=== PATIENT | male | born 1940 | race Caucasian/White ===

== ENCOUNTER 2017-09-21 15:14 | Observation (INO) | payer OTHER, SELFPAY ==
--- NOTE | 2017-09-21 | DI.CT.S_ITS ---
PROCEDURE: CT HEAD/BRAIN WO CON INDICATIONS: STROKE TECHNIQUE: Noncontrast 4.5 mm thick angled axial sections acquired from the foramen magnum to the vertex, with coronal and sagittal reformats. For radiation dose reduction, the following was used: automated exposure control, adjustment of mA and/or kV according to patient size. COMPARISON: [facility], CT, HEAD WITHOUT CONTRAST, 02/18/2017, 19:52. FINDINGS: Image quality: Excellent. CSF spaces: Basal cisterns are patent. No extra-axial fluid collections. The ventricles are symmetric in size and shape. Brain: No intracranial bleeds or masses. There is cerebral volume loss for age, with resultant ventricular and sulcal prominence. There are periventricular and deep white matter chronic small vessel ischemic changes. There is intracranial internal carotid artery atherosclerosis. Skull and face: Calvarium and visualized facial bones appear intact, without suspicious lesions. Sinuses: Visualized sinuses and mastoids are clear. IMPRESSION: No acute intracranial abnormality. Dictated by: Emily Walden M.D. on 09/21/2017 at 15:27 Approved by: Emily Walden M.D. on 09/21/2017 at 15:28
[2017-09-21 15:18] VITALS: BMI 31.6
[2017-09-21 15:22] VITALS: BP 193/99; PULSE 77; RESP 22; O2SAT 98; BMI 31.6
[2017-09-21 15:33] LABS: Hematocrit 41.5 % (41-53); Hemoglobin 14.2 g/dL (13.5-17.5); Mean Corpuscular HGB Conc 34.3 % (30-36); Mean Corpuscular Hemoglobin 30.2 PG (26-34); Mean Corpuscular Volume 88.1 fL (80-100); Platelet Count 148 X10^3/uL (150-400); Red Cell Distribution Width 14.1 % (11.6-14.8); White Blood Cell Count 8.5 X10^3/uL (4.5-11.0)
--- NOTE | 2017-09-21 15:37 | DI.CT.S_ITS ---
PROCEDURE: CT ANGIO HEAD AND NECK INDICATIONS: CVA, r/o large vessel occlusion TECHNIQUE: Pre-contrast 4.5 mm thick sections acquired from the foramen magnum to the vertex. After the administration of intravenous contrast, 1 mm thick sections acquired from the aortic arch through the [place]. Post-contrast 4.5 mm thick sections then re-acquired from the foramen magnum to the vertex. 3-dimensional rzjbvzd-sznugempt-dmtkdsueqm (MIP) and/or volume rendering reformats were acquired of the central intracranial vasculature and neck separately. COMPARISON: [facility], CT, HEAD AND NECK ANGIO, 08/22/2016, 20:55. [facility], CT, CT HEAD/BRAIN WO CON, 09/21/2017, 15:08. [facility], CT, HEAD AND NECK ANGIO, 12/04/2016, 15:13. FINDINGS: Image quality: Excellent. BRAIN: CSF spaces: Ventricles are normal in size and shape. Basal cisterns are patent. No extra-axial fluid collections. Brain: No midline shift. No intracranial bleeds or masses. Hackett-white matter interface appears intact. Skull and face: Calvarium and facial bones appear intact, without suspicious lesions. Orbits appear normal. Sinuses: Sinuses and mastoids are clear. HEAD CT ANGIOGRAPHY: Anterior circulation: Mild plaque and mild stenosis involves the bilateral internal carotid arteries cavernous segment and supraclinoid segments. The flow within the paired anterior cerebral arteries is normal and symmetric. The flow within the middle cerebral arteries is normal and symmetric. The anterior communicating artery is seen. No aneurysms are seen. Posterior circulation: Visualized portions of the vertebral arteries demonstrate normal caliber, and join to form a normal appearing basilar artery. Near origin of the left posterior cerebral artery. Flow within the posterior cerebral arteries is normal and symmetric. No aneurysms are seen. NECK CT ANGIOGRAPHY: Carotid system: The great vessels demonstrate a conventional anatomy as they arise from the aortic arch. The origins of the common carotid arteries appear patent. The common carotid arteries demonstrate normal caliber and courses. Mild calcific stenosis involves the bilateral internal carotid artery origins, and internal carotid artery is otherwise patent. Posterior circulation: Proximal right vertebral artery and its origin are not well seen. Left vertebral artery origin is patent. The more superior extracranial portions of both vertebral arteries also demonstrate normal courses and calibers. They join to form a normal appearing basilar artery. Soft tissues: Visualized neck soft tissues demonstrate no suspicious abnormalities. Bones: No suspicious bony lesions. Visualized cervical spine appears normally aligned. IMPRESSION: 1. No acute process. 2. Suboptimally visualized proximal right vertebral artery. Left vertebral artery is patent. 3. Mild bilateral internal carotid artery stenosis as described above. Any quantitative measurements of stenosis were performed using NASCET criteria. Dictated by: Emily Walden M.D. on 09/21/2017 at 16:55 Approved by: Emily Walden M.D. on 09/21/2017 at 17:00
[2017-09-21 15:38] LABS: INR 1.4 (0.9-1.3); Prothrombin Time 15.3 SECONDS (10.1-12.7)
[2017-09-21 15:40] LABS: PTT Partial Thromboplastin Tim 34 SECONDS (26.4-36.2)
--- NOTE | 2017-09-21 15:42 | ED.NEUROSD ---
HPI - Neuro Symptoms/Deficit General Chief Complaint: Neuro Symptoms/Deficit Stated Complaint: Code Stroke Time Seen by Provider: 09/21/17 15:18 Source: patient, family and EMS Mode of arrival: EMS Limitations: other History of Present Illness HPI Narrative: 77-year-old male with a history of diabetes, TIA with expressive aphasia, hypertension, and hyperlipidemia presents with word salad that began around 215 this afternoon. He had a stroke/TIA about 6 months ago where he was seen here. His roommate was present notes that his symptoms from that nearly resolved except for some memory loss. Today his symptoms are similar to previous. Unable to obtain review of systems due to his expressive aphasia. NIH score of 5. Onset (ago): hour(s) (1) On Anticoagulants: Yes (warfarin) Related Data Home Medications Medication Instructions Recorded Confirmed felodipine 10 mg PO QDAY #0 08/22/16 losartan 100 mg PO QDAY #0 08/22/16 metformin [Glucophage XR] 1,000 mg PO BID #0 08/22/16 naproxen [Naprosyn] 500 mg PO BID PRN #0 08/22/16 tamsulosin [Flomax] 0.4 mg PO QDAY #0 08/22/16 glipizide 10 mg PO BID #180 02/18/17 metoprolol succinate 50 mg PO QDAY #60 02/18/17 Previous Rx's Medication Instructions Recorded aspirin 81 mg PO QDAY #60 tab 08/23/16 atorvastatin [Lipitor] 20 mg PO HS #30 tab 08/23/16 Allergies Allergy/AdvReac Type Severity Reaction Status Date / Time codeine Allergy Unknown Unverified 08/14/17 12:52 ibuprofen [From MOTRIN] Allergy Unknown makes me Unverified 08/14/17 12:52 sick Sulfa (Sulfonamide Allergy Unknown Unverified 08/14/17 12:52 Antibiotics) Review of Systems Review of Systems unobtainable due to mental status [facility] Medical History History of prostatitis (Acute) Hypertension (Acute) Nephrolithiasis (Acute) Type 2 diabetes mellitus without complications (Acute) Surgical History H/O hernia repair (Acute) Social History Smoking Status: Never smoker alcohol intake: never Exam Initial Vital Signs Initial Vital Signs: Vital Signs Pulse Rate 77 09/21/17 15:22 Respiratory Rate 22 09/21/17 15:22 Blood Pressure 193/99 H 09/21/17 15:22 Pulse Oximetry 98 09/21/17 15:22 Const General: cooperative and well developed Nutritional Appearance: well nourished Orientation: alert, awake and not confused Other: Speaks briefly with intelligible words and then becomes unintelligible/word salad. HENMT Head: normocephalic and atraumatic Ears: external ears normal and TM's normal bilaterally Nose: external nose normal and No nasal discharge Face and sinus: sinuses nontender, face symmetric, no sinus tenderness and No dry mucous membranes Mouth: oral mucosae normal and moist mucous membranes Teeth and gingiva: dentition normal Throat: tonsils normal and uvula midline Eyes General: appearance normal, both eyes and all related structures Eyelids: eyelids normal Conjunctivae: conjunctivae normal Sclera: sclerae normal Pupils: PERRL EOM: EOM intact bilaterally Neck Neck: normal visual inspection, trachea midline, No lymphadenopathy, No midline deformity and No JVD Lymphatic: No lymphedema Chest Chest: normal inspection of the chest Resp Effort & Inspection: normal respiratory effort, able to speak in complete sentences, no respiratory distress and no use of accessory muscles Auscultation: clear to auscultation bilaterally, no rales, no rhonchi and no wheezes Cardio Rate: regular rate Rhythm: regular rhythm Heart Sounds: no click, no gallops, no murmurs and no rubs Pulses: normal peripheral pulses GI Inspection: non-distended Palpation: soft, no hepatosplenomegaly, No guarding, No pulsatile mass and No tender Auscultation: normal bowel sounds Back/Spine/Pelvis Back: No CVA tenderness Cervical Spine: cervical ROM normal and No pain with cervical ROM Thoracic/Lumbar Spine: thoracic and lumbar spine normal to inspection Skin General: no rashes or lesions noted, No jaundice and No petechiae Neuro General: alert, oriented x3, gait normal and no focal motor deficits Cranial Nerves: CN's II-XI intact bilaterally Speech: speech normal Motor: strength 5/5 throughout Sensory Exam: no sensory deficits noted Extrem General: full ROM, no clubbing, cyanosis or edema, no pedal edema and no calf tenderness Psych Appearance: well kempt Mental Status: mental status grossly normal Attitude: cooperative Thought Content: normal and suicidality Judgment: judgment good Course Orders Ordered: ED Orders 09/21/17 15:18 Urinalysis and Microscopic Stat 09/21/17 15:19 EKG-12 Lead Stat 09/21/17 15:23 Complete Blood Count MAN DIFF Stat Comprehensive Metabolic Panel Stat Ethanol (ETOH) Stat Partial Thromboplastin Time Stat Prothrombin Time INR Stat Troponin I Stat 09/21/17 15:37 CT angio head and neck Stat Sodium Chloride (Normal Saline 0.9%) 1,000 mls @ 150 mls/hr IV CONT DHARMESH Last Admin: 09/21/17 17:53 Dose: 150 mls/hr Discontinued Medications Aspirin (Aspirin Ec) 325 mg PO NOW ONE Stop: 09/21/17 17:38 Last Admin: 09/21/17 17:55 Dose: 325 mg Enoxaparin Sodium (Lovenox) 105 mg 1 mg/kg (105 mg) SUBCUT NOW ONE Stop: 09/21/17 17:38 Last Admin: 09/21/17 17:52 Dose: 105 mg Vital Signs - 8 hr 09/21/17 15:22 09/21/17 18:37 Pulse Rate 77 78 Respiratory Rate 22 16 Blood Pressure 193/99 H 198/95 H Pulse Oximetry 98 97 MDM - Neuro Symptoms/Deficit Medical Records Attestation: I reviewed the patient's medical records. Lab Data Attestation: I reviewed the patient's lab results. Result diagrams: 09/21/17 15:23 09/21/17 15:23 Lab Results 09/21/17 09/21/17 09/21/17 Range/Units 15:23 15:23 15:23 WBC 8.5 (4.5-11.0) X10^3/uL RBC 4.70 (4.5-5.9) X10^6/uL Hgb 14.2 (13.5-17.5) g/dL Hct 41.5 (41-53) % MCV 88.1 (80-100) fL MCH 30.2 (26-34) PG MCHC 34.3 (30-36) % RDW 14.1 (11.6-14.8) % Plt Count 148 L (150-400) X10^3/uL Seg Neutrophils % 51.0 (38-70) % Band Neutrophils % 1.0 L (3-7) % Lymphocytes % (Manual) 40.0 (25-45) % Monocytes % (Manual) 8.0 (2-11) % Eosinophils % (Manual) 0.0 L (2-4) % Basophils % (Manual) 0.0 (0-1) % RBC Morphology Normal morphology PT 15.3 H (10.1-12.7) SECONDS INR 1.4 H (0.9-1.3) APTT 34 (26.4-36.2) SECONDS Sodium 137 (137-145) mmol/L Potassium 4.0 (3.4-5.1) mmol/L Chloride 100.0 (98-107) mmol/L Carbon Dioxide 25.0 (22-32) mmol/L BUN 15.0 (9-20) mg/dL Creatinine 0.70 (0.66-1.25) mg/dL Estimated GFR > 60.0 (>60) mL/min BUN/Creatinine Ratio 21.4 (6-22) Glucose 284 H (80-110) mg/dL Calcium 9.9 (8.4-10.2) mg/dL Total Bilirubin 0.5 (0.2-1.3) mg/dL AST 21 (17-59) IU/L ALT 29 (21-72) IU/L Alkaline Phosphatase 119 (38-126) U/L Troponin I < 0.012 (0.01-0.034) ng/mL Total Protein 6.8 (6.3-8.2) g/dL Albumin 3.7 (3.5-5.0) g/dL Globulin 3.1 (1.7-4.1) g/dL Albumin/Globulin Ratio 1.2 (1.0-2.8) Ethyl Alcohol < 10 mg/dL Imaging Data CT scan - head: Radiologist's impression: PROCEDURE: CT HEAD/BRAIN WO CON INDICATIONS: STROKE PROCEDURE: CT ANGIO HEAD AND NECK INDICATIONS: CVA, r/o large vessel occlusion TECHNIQUE: Pre-contrast 4.5 mm thick sections acquired from the foramen magnum to the vertex. After the administration of intravenous contrast, 1 mm thick sections acquired from the aortic arch through the [place] of [place]. Post-contrast 4.5 mm thick sections then re-acquired from the foramen magnum to the vertex. 3-dimensional nvplweg-dqwvstxkg-aahmguigal (MIP) and/or volume rendering reformats were acquired of the central intracranial vasculature and neck separately. COMPARISON: [facility], CT, HEAD AND NECK ANGIO, 08/22/2016, 20:55. [facility], CT, CT HEAD/BRAIN WO CON, 09/21/2017, 15:08. [facility], CT, HEAD AND NECK ANGIO, 12/04/2016, 15:13. FINDINGS: Image quality: Excellent. BRAIN: CSF spaces: Ventricles are normal in size and shape. Basal cisterns are patent. No extra-axial fluid collections. Brain: No midline shift. No intracranial bleeds or masses. Hack[place]-white matter interface appears intact. Skull and face: Calvarium and facial bones appear intact, without suspicious lesions. Orbits appear normal. Sinuses: Sinuses and mastoids are clear. HEAD CT ANGIOGRAPHY: Anterior circulation: Mild plaque and mild stenosis involves the bilateral internal carotid arteries cavernous segment and supraclinoid segments. The flow within the paired anterior cerebral arteries is normal and symmetric. The flow within the middle cerebral arteries is normal and symmetric. The anterior communicating artery is seen. No aneurysms are seen. Posterior circulation: Visualized portions of the vertebral arteries demonstrate normal caliber, and join to form a normal appearing basilar artery. Near origin of the left posterior cerebral artery. Flow within the posterior cerebral arteries is normal and symmetric. No aneurysms are seen. NECK CT ANGIOGRAPHY: Carotid system: The great vessels demonstrate a conventional anatomy as they arise from the aortic arch. The origins of the common carotid arteries appear patent. The common carotid arteries demonstrate normal caliber and courses. Mild calcific stenosis involves the bilateral internal carotid artery origins, and internal carotid artery is otherwise patent. Posterior circulation: Proximal right vertebral artery and its origin are not well seen. Left vertebral artery origin is patent. The more superior extracranial portions of both vertebral arteries also demonstrate normal courses and calibers. They join to form a normal appearing basilar artery. Soft tissues: Visualized neck soft tissues demonstrate no suspicious abnormalities. Bones: No suspicious bony lesions. Visualized cervical spine appears normally aligned. IMPRESSION: 1. No acute process. 2. Suboptimally visualized proximal right vertebral artery. Left vertebral artery is patent. 3. Mild bilateral internal carotid artery stenosis as described above. Any quantitative measurements of stenosis were performed using NASCET criteria. Dictated by: Emily Walden M.D. on 09/21/2017 at 16:55 Approved by: Emily Walden M.D. on 09/21/2017 at 17:00 TECHNIQUE: Noncontrast 4.5 mm thick angled axial sections acquired from the foramen magnum to the vertex, with coronal and sagittal reformats. For radiation dose reduction, the following was used: automated exposure control, adjustment of mA and/or kV according to patient size. COMPARISON: [facility], CT, HEAD WITHOUT CONTRAST, 02/18/2017, 19:52. FINDINGS: Image quality: Excellent. CSF spaces: Basal cisterns are patent. No extra-axial fluid collections. The ventricles are symmetric in size and shape. Brain: No intracranial bleeds or masses. There is cerebral volume loss for age, with resultant ventricular and sulcal prominence. There are periventricular and deep white matter chronic small vessel ischemic changes. There is intracranial internal carotid artery atherosclerosis. Skull and face: Calvarium and visualized facial bones appear intact, without suspicious lesions. Sinuses: Visualized sinuses and mastoids are clear. IMPRESSION: No acute intracranial abnormality. Dictated by: Emily Walden M.D. on 09/21/2017 at 15:27 Approved by: Emily Walden M.D. on 09/21/2017 at 15:28 ECG Data Attestation: I personally reviewed and interpreted this ECG as follows: Prior ECG tracings: available for review Interpretation: EKG performed at 1532 shows sinus rhythm with a normal EKG. No evidence of ischemia or arrhythmia. No change when compared with 02/18/2017 [facility] Narrative Medical decision making narrative: Full NIH was performed by myself and he lost a point for not knowing the year, having severe difficulty with language, and severe dysarthria. He could not read any of the phrases on cards, but was able to identify what was happening in the picture and also he was able to identify the pictures NIH scale demonstrate no problems with a pneumonia. He spoke in nonsensical, non word phrases predominantly. Still unable to identify why he is on warfarin. He was initiated in February per his pharmacy. [address] Killian in Neurology at [facility] stroke. Even though he is on warfarin, as his INR is subtherapeutic, he is a tPA candidate. 1555: NIH is now 0 [address] hensly confirms resolution of symptoms. Will hold TPA and perform CTA head and neck, admit for MRI and stroke workup Overall the differential for his symptoms include TIA, atypical migraine, hypertensive emergency, seizure, versus other. At this point given the for possible TIA and his significantly elevated blood pressure here, he will need to be admitted for further evaluation. He was somewhat reluctant to be admitted given all the things he had to do, but I let him know that he is at highest risk for stroke in the next 24-48 hours. He is agreeable to stay. I discussed his care with Dr. Miller who recommends giving him Lovenox giving his subtherapeutic INR as well as a full aspirin. He will come see and admit the patient. Discharge Plan Departure Patient Disposition: Admitted As Inpatient Clinical Impression: TIA (transient ischemic attack), Hypertensive crisis, Subtherapeutic international normalized ratio (INR) Interventions: ED Discharge Assessment Last Done: 09/21/17 18:37 Admit Date/Time: 09/21/17 17:58 Admit Provider: Gage Miller V
[2017-09-21 15:43] LABS: Alanine Aminotransferase 29 IU/L (21-72); Albumin 3.7 g/dL (3.5-5.0); Albumin Globulin Ratio 1.2 (1.0-2.8); Alkaline Phosphatase 119 U/L (38-126); Aspartate Aminotransferase 21 IU/L (17-59); BUN Creatinine Ratio 21.4 (6-22); Bilirubin Total 0.5 mg/dL (0.2-1.3); Calcium 9.9 mg/dL (8.4-10.2); Estimated Glomerular Filt Rate > 60.0 mL/min (>60); Ethanol (ETOH) < 10 mg/dL; Globulin 3.1 g/dL (1.7-4.1); Glucose 284 mg/dL (80-110); HEMOLYSIS < 15 (0-50); Sodium 137 mmol/L (137-145); Total Protein 6.8 g/dL (6.3-8.2)
[2017-09-21 16:05] LABS: Troponin I < 0.012 ng/mL (0.01-0.034)
--- NOTE | 2017-09-21 16:05 | ED_ITS ---
HPI - Neuro Symptoms/Deficit General Chief Complaint: Neuro Symptoms/Deficit Stated Complaint: Code Stroke Time Seen by Provider: 09/21/17 15:18 Source: patient, family and EMS Mode of arrival: EMS Limitations: other History of Present Illness HPI Narrative: 77-year-old male with a history of diabetes, TIA with expressive aphasia, hypertension, and hyperlipidemia presents with word salad that began around 215 this afternoon. He had a stroke/TIA about 6 months ago where he was seen here. His roommate was present notes that his symptoms from that nearly resolved except for some memory loss. Today his symptoms are similar to previous. Unable to obtain review of systems due to his expressive aphasia. NIH score of 5. Onset (ago): hour(s) (1) On Anticoagulants: Yes (warfarin) Related Data Home Medications Medication Instructions Recorded Confirmed felodipine 10 mg PO QDAY #0 08/22/16 losartan 100 mg PO QDAY #0 08/22/16 metformin [Glucophage XR] 1,000 mg PO BID #0 08/22/16 naproxen [Naprosyn] 500 mg PO BID PRN #0 08/22/16 tamsulosin [Flomax] 0.4 mg PO QDAY #0 08/22/16 glipizide 10 mg PO BID #180 02/18/17 metoprolol succinate 50 mg PO QDAY #60 02/18/17 Previous Rx's Medication Instructions Recorded aspirin 81 mg PO QDAY #60 tab 08/23/16 atorvastatin [Lipitor] 20 mg PO HS #30 tab 08/23/16 Allergies Allergy/AdvReac Type Severity Reaction Status Date / Time codeine Allergy Unknown Unverified 08/14/17 12:52 ibuprofen [From MOTRIN] Allergy Unknown makes me Unverified 08/14/17 12:52 sick Sulfa (Sulfonamide Allergy Unknown Unverified 08/14/17 12:52 Antibiotics) Review of Systems Review of Systems unobtainable due to mental status [facility] Medical History History of prostatitis (Acute) Hypertension (Acute) Nephrolithiasis (Acute) Type 2 diabetes mellitus without complications (Acute) Surgical History H/O hernia repair (Acute) Social History Smoking Status: Never smoker alcohol intake: never Exam Initial Vital Signs Initial Vital Signs: Vital Signs Pulse Rate 77 09/21/17 15:22 Respiratory Rate 22 09/21/17 15:22 Blood Pressure 193/99 H 09/21/17 15:22 Pulse Oximetry 98 09/21/17 15:22 Const General: cooperative and well developed Nutritional Appearance: well nourished Orientation: alert, awake and not confused Other: Speaks briefly with intelligible words and then becomes unintelligible/ word salad. HENMT Head: normocephalic and atraumatic Ears: external ears normal and TM's normal bilaterally Nose: external nose normal and No nasal discharge Face and sinus: sinuses nontender, face symmetric, no sinus tenderness and No dry mucous membranes Mouth: oral mucosae normal and moist mucous membranes Teeth and gingiva: dentition normal Throat: tonsils normal and uvula midline Eyes General: appearance normal, both eyes and all related structures Eyelids: eyelids normal Conjunctivae: conjunctivae normal Sclera: sclerae normal Pupils: PERRL EOM: EOM intact bilaterally Neck Neck: normal visual inspection, trachea midline, No lymphadenopathy, No midline deformity and No JVD Lymphatic: No lymphedema Chest Chest: normal inspection of the chest Resp Effort & Inspection: normal respiratory effort, able to speak in complete sentences, no respiratory distress and no use of accessory muscles Auscultation: clear to auscultation bilaterally, no rales, no rhonchi and no wheezes Cardio Rate: regular rate Rhythm: regular rhythm Heart Sounds: no click, no gallops, no murmurs and no rubs Pulses: normal peripheral pulses GI Inspection: non-distended Palpation: soft, no hepatosplenomegaly, No guarding, No pulsatile mass and No tender Auscultation: normal bowel sounds Back/Spine/Pelvis Back: No CVA tenderness Cervical Spine: cervical ROM normal and No pain with cervical ROM Thoracic/Lumbar Spine: thoracic and lumbar spine normal to inspection Skin General: no rashes or lesions noted, No jaundice and No petechiae Neuro General: alert, oriented x3, gait normal and no focal motor deficits Cranial Nerves: CN's II-XI intact bilaterally Speech: speech normal Motor: strength 5/5 throughout Sensory Exam: no sensory deficits noted Extrem General: full ROM, no clubbing, cyanosis or edema, no pedal edema and no calf tenderness Psych Appearance: well kempt Mental Status: mental status grossly normal Attitude: cooperative Thought Content: normal and suicidality Judgment: judgment good Course Orders Ordered: ED Orders 09/21/17 15:18 Urinalysis and Microscopic Stat 09/21/17 15:19 EKG-12 Lead Stat 09/21/17 15:23 Complete Blood Count MAN DIFF Stat Comprehensive Metabolic Panel Stat Ethanol (ETOH) Stat Partial Thromboplastin Time Stat Prothrombin Time INR Stat Troponin I Stat 09/21/17 15:37 CT angio head and neck Stat Sodium Chloride (Normal Saline 0.9%) 1,000 mls @ 150 mls/hr IV CONT DHARMESH Last Admin: 09/21/17 17:53 Dose: 150 mls/hr Discontinued Medications Aspirin (Aspirin Ec) 325 mg PO NOW ONE Stop: 09/21/17 17:38 Last Admin: 09/21/17 17:55 Dose: 325 mg Enoxaparin Sodium (Lovenox) 105 mg 1 mg/kg (105 mg) SUBCUT NOW ONE Stop: 09/21/17 17:38 Last Admin: 09/21/17 17:52 Dose: 105 mg Vital Signs - 8 hr 09/21/17 15:22 09/21/17 18:37 Pulse Rate 77 78 Respiratory Rate 22 16 Blood Pressure 193/99 H 198/95 H Pulse Oximetry 98 97 MDM - Neuro Symptoms/Deficit Medical Records Attestation: I reviewed the patient's medical records. Lab Data Attestation: I reviewed the patient's lab results. Result diagrams: 09/21/17 15:23 09/21/17 15:23 Lab Results 09/21/17 09/21/17 09/21/17 Range/Units 15:23 15:23 15:23 WBC 8.5 (4.5-11.0) X10^3/uL RBC 4.70 (4.5-5.9) X10^6/uL Hgb 14.2 (13.5-17.5) g/dL Hct 41.5 (41-53) % MCV 88.1 (80-100) fL MCH 30.2 (26-34) PG MCHC 34.3 (30-36) % RDW 14.1 (11.6-14.8) % Plt Count 148 L (150-400) X10^3/uL Seg Neutrophils % 51.0 (38-70) % Band Neutrophils % 1.0 L (3-7) % Lymphocytes % (Manual) 40.0 (25-45) % Monocytes % (Manual) 8.0 (2-11) % Eosinophils % (Manual) 0.0 L (2-4) % Basophils % (Manual) 0.0 (0-1) % RBC Morphology Normal morphology PT 15.3 H (10.1-12.7) SECONDS INR 1.4 H (0.9-1.3) APTT 34 (26.4-36.2) SECONDS Sodium 137 (137-145) mmol/L Potassium 4.0 (3.4-5.1) mmol/L Chloride 100.0 (98-107) mmol/L Carbon Dioxide 25.0 (22-32) mmol/L BUN 15.0 (9-20) mg/dL Creatinine 0.70 (0.66-1.25) mg/dL Estimated GFR > 60.0 (>60) mL/min BUN/Creatinine Ratio 21.4 (6-22) Glucose 284 H (80-110) mg/dL Calcium 9.9 (8.4-10.2) mg/dL Total Bilirubin 0.5 (0.2-1.3) mg/dL AST 21 (17-59) IU/L ALT 29 (21-72) IU/L Alkaline Phosphatase 119 (38-126) U/L Troponin I < 0.012 (0.01-0.034) ng/mL Total Protein 6.8 (6.3-8.2) g/dL Albumin 3.7 (3.5-5.0) g/dL Globulin 3.1 (1.7-4.1) g/dL Albumin/Globulin Ratio 1.2 (1.0-2.8) Ethyl Alcohol < 10 mg/dL Imaging Data CT scan - head: Radiologist's impression: PROCEDURE: CT HEAD/BRAIN WO CON INDICATIONS: STROKE PROCEDURE: CT ANGIO HEAD AND NECK INDICATIONS: CVA, r/o large vessel occlusion TECHNIQUE: Pre-contrast 4.5 mm thick sections acquired from the foramen magnum to the vertex. After the administration of intravenous contrast, 1 mm thick sections acquired from the aortic arch through the [place]. Post-contrast 4.5 mm thick sections then re- acquired from the foramen magnum to the vertex. 3-dimensional maximum-intensity- projection (MIP) and/or volume rendering reformats were acquired of the central intracranial vasculature and neck separately. COMPARISON: [facility], CT, HEAD AND NECK ANGIO, 08/22/2016, 20:55. [facility], CT, CT HEAD/BRAIN WO CON, 09/21/2017, 15:08. [facility], CT, HEAD AND NECK ANGIO, 12/04/2016, 15:13. FINDINGS: Image quality: Excellent. BRAIN: CSF spaces: Ventricles are normal in size and shape. Basal cisterns are patent. No extra-axial fluid collections. Brain: No midline shift. No intracranial bleeds or masses. Hackett-white matter interface appears intact. Skull and face: Calvarium and facial bones appear intact, without suspicious lesions. Orbits appear normal. Sinuses: Sinuses and mastoids are clear. HEAD CT ANGIOGRAPHY: Anterior circulation: Mild plaque and mild stenosis involves the bilateral internal carotid arteries cavernous segment and supraclinoid segments. The flow within the paired anterior cerebral arteries is normal and symmetric. The flow within the middle cerebral arteries is normal and symmetric. The anterior communicating artery is seen. No aneurysms are seen. Posterior circulation: Visualized portions of the vertebral arteries demonstrate normal caliber, and join to form a normal appearing basilar artery. Near origin of the left posterior cerebral artery. Flow within the posterior cerebral arteries is normal and symmetric. No aneurysms are seen. NECK CT ANGIOGRAPHY: Carotid system: The great vessels demonstrate a conventional anatomy as they arise from the aortic arch. The origins of the common carotid arteries appear patent. The common carotid arteries demonstrate normal caliber and courses. Mild calcific stenosis involves the bilateral internal carotid artery origins, and internal carotid artery is otherwise patent. Posterior circulation: Proximal right vertebral artery and its origin are not well seen. Left vertebral artery origin is patent. The more superior extracranial portions of both vertebral arteries also demonstrate normal courses and calibers. They join to form a normal appearing basilar artery. Soft tissues: Visualized neck soft tissues demonstrate no suspicious abnormalities. Bones: No suspicious bony lesions. Visualized cervical spine appears normally aligned. IMPRESSION: 1. No acute process. 2. Suboptimally visualized proximal right vertebral artery. Left vertebral artery is patent. 3. Mild bilateral internal carotid artery stenosis as described above. Any quantitative measurements of stenosis were performed using NASCET criteria. Dictated by: Emily Walden M.D. on 09/21/2017 at 16:55 Approved by: Emily Walden M.D. on 09/21/2017 at 17:00 TECHNIQUE: Noncontrast 4.5 mm thick angled axial sections acquired from the foramen magnum to the vertex, with coronal and sagittal reformats. For radiation dose reduction, the following was used: automated exposure control, adjustment of mA and/or kV according to patient size. COMPARISON: [facility], CT, HEAD WITHOUT CONTRAST, 02/18/2017, 19:52. FINDINGS: Image quality: Excellent. CSF spaces: Basal cisterns are patent. No extra-axial fluid collections. The ventricles are symmetric in size and shape. Brain: No intracranial bleeds or masses. There is cerebral volume loss for age , with resultant ventricular and sulcal prominence. There are periventricular and deep white matter chronic small vessel ischemic changes. There is intracranial internal carotid artery atherosclerosis. Skull and face: Calvarium and visualized facial bones appear intact, without suspicious lesions. Sinuses: Visualized sinuses and mastoids are clear. IMPRESSION: No acute intracranial abnormality. Dictated by: Emily Walden M.D. on 09/21/2017 at 15:27 Approved by: Emily Walden M.D. on 09/21/2017 at 15:28 ECG Data Attestation: I personally reviewed and interpreted this ECG as follows: Prior ECG tracings: available for review Interpretation: EKG performed at 1532 shows sinus rhythm with a normal EKG. No evidence of ischemia or arrhythmia. No change when compared with 02/18/2017 [facility] Narrative Medical decision making narrative: Full NIH was performed by myself and he lost a point for not knowing the year, having severe difficulty with language, and severe dysarthria. He could not read any of the phrases on cards, but was able to identify what was happening in the picture and also he was able to identify the pictures NIH scale demonstrate no problems with a pneumonia. He spoke in nonsensical, non word phrases predominantly. Still unable to identify why he is on warfarin. He was initiated in February per his pharmacy. [address] Killian in Neurology at [facility] stroke. Even though he is on warfarin, as his INR is subtherapeutic, he is a tPA candidate. 1555: NIH is now 0 [address] hensly confirms resolution of symptoms. Will hold TPA and perform CTA head and neck, admit for MRI and stroke workup Overall the differential for his symptoms include TIA, atypical migraine, hypertensive emergency, seizure, versus other. At this point given the for possible TIA and his significantly elevated blood pressure here, he will need to be admitted for further evaluation. He was somewhat reluctant to be admitted given all the things he had to do, but I let him know that he is at highest risk for stroke in the next 24-48 hours. He is agreeable to stay. I discussed his care with Dr. Miller who recommends giving him Lovenox giving his subtherapeutic INR as well as a full aspirin. He will come see and admit the patient. Discharge Plan Departure Patient Disposition: Admitted As Inpatient Clinical Impression: TIA (transient ischemic attack), Hypertensive crisis, Subtherapeutic international normalized ratio (INR) Interventions: ED Discharge Assessment Last Done: 09/21/17 18:37 Admit Date/Time: 09/21/17 17:58 Admit Provider: Gage Miller V
[2017-09-21 16:12] LABS: RBC Morphology Normal Morphology
[2017-09-21] MEDS: ENOXAPARIN 100 MG/ML SYRINGE 105 MG SUBCUT (17:52)
[2017-09-21] MEDS: SODIUM CHLORIDE 0.9% 1,000 ML 150 ML IV ×2 (17:53→21:07)
[2017-09-21] MEDS: ASPIRIN EC 325 MG TABLET PO (17:55)
--- NOTE | 2017-09-21 18:11 | PC.NURSE ---
Late entry 1520: Pt's speech cleared, NIH score decreased to 0. Tele stroke had been initiated prior to speech clearing. Pt able to talk in full sentences, and able to read words.
[2017-09-21 18:37] VITALS: BP 198/95; PULSE 78; RESP 16; O2SAT 97
--- NOTE | 2017-09-21 19:21 | PM.HP.1 ---
History of Present Illness Chief complaint: Code Stroke Narrative: Haresh Pizarro is a 77 year old male with a history of TIAs who presented with expressive aphasia for approximately 90 min this afternoon. He states he was just leaving a friend's at about 3:00 p.m. when he noticed he had trouble expressing himself. He got on his motor bike and drove himself home, and as he pulled and he felt that he may have had a little trouble with coordination, but denies any lateralizing weakness, paresthesias, or ataxic symptoms, was able to get off his motor bike and get into his house. He subsequently was seen promptly in the emergency department and was about to be administered thrombolytics when his symptoms resolved completely, with his NIH stroke scale score going from 5 on presentation to 0. He had a similar presentation in August 2016 at this hospital, resolving and at which time he was started on aspirin and statin therapy. He states he has had 3 other identical episodes, all resolving within 2-1/2 hours. He is on warfarin for reasons that are unclear to him, but notes that his protime was in range last week. He does not usually measure blood sugars and does not also measure blood pressures, though states that tended to be high in the past. It is noted that he was on floated Pean 10 mg daily, losartan 100 mg daily in August 2016 when he last was seen at this hospital. Since then he has been started on warfarin. [facility]LY [facility], [facility] Medical History History of prostatitis (Acute) History of transient ischemic attack (Acute) Hypertension (Acute) Nephrolithiasis (Acute) Type 2 diabetes mellitus without complications (Acute) Surgical History H/O hernia repair (Acute) Social History Smoking Status: Former smoker alcohol intake: former additional social history: He quit smoking over 20 years ago. 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 He plans to move to [place] within a couple of days. He denies alcohol use. Meds Home Medications Medication Instructions Recorded Confirmed Type metformin [Glucophage XR] 1,000 mg PO BID #0 08/22/16 09/21/17 History glipizide 5 mg PO BID #180 02/18/17 09/21/17 History warfarin 5 mg PO DAILY 09/21/17 09/21/17 History Generic Name Dose Route Start Last Admin Trade Name Maame PRN Reason Stop Dose Admin Acetaminophen 650 mg 09/21/17 20:10 Tylenol PO Q6HR PRN As Needed for Fever/Mild Pain Aspirin 325 mg 09/22/17 09:00 Aspirin Ec PO DAILY [facility] Atorvastatin Calcium 20 mg 09/21/17 20:15 Lipitor PO HS [facility] Enoxaparin Sodium 105 mg 09/22/17 09:08 Lovenox 1 mg/kg (105 mg) 09/22/17 09:09 SUBCUT NOW ONE Felodipine 10 mg 09/21/17 20:10 Plendil PO DAILY [facility] Glipizide 5 mg 09/21/17 21:00 Glucotrol PO BID [facility] Sodium Chloride 1,000 mls @ 150 mls/hr 09/21/17 15:30 09/21/17 17:53 Normal Saline 0.9% IV 150 mls/hr CONT DHARMESH Administration Metformin HCl 1,000 mg 09/21/17 21:00 Glucophage Xr PO BID [facility] Warfarin Sodium 5 mg 09/22/17 09:00 Coumadin PO DAILY [facility] Warfarin Sodium 10 mg 09/21/17 20:07 Coumadin PO 09/21/17 20:08 NOW ONE Allergies Allergy/AdvReac Type Severity Reaction Status Date / Time codeine Allergy Unknown Unverified 08/14/17 12:52 ibuprofen [From MOTRIN] Allergy Unknown makes me Unverified 08/14/17 12:52 sick Sulfa (Sulfonamide Allergy Unknown Unverified 08/14/17 12:52 Antibiotics) Review of Systems Review of Systems All systems reviewed & are unremarkable except as noted in HPI and below Exam Vital Signs (past 8 hours): Vital Signs - 8 hr 09/21/17 15:22 09/21/17 18:37 Pulse Rate 77 78 Respiratory Rate 22 16 Blood Pressure 193/99 H 198/95 H Pulse Oximetry 98 97 Pulse Oximetry 97 Oxygen Delivery Method Room Air Narrative Exam Narrative: General: Alert, pleasant, appropriate, conversational with no apparent aphasia HEENT: Pupils 2 mm, round, reactive, extraocular movements intact, normal confrontational visual mesa, normal facial symmetry Neck: Supple without bruits Lungs: Clear to auscultation Cardiac: Regular rate and rhythm without appreciable murmur Abdomen: Soft, nontender, nondistended Extremities: Without edema Neurologic: Alert, oriented, cranial nerves 2-12, motor, sensory cerebellar grossly nonfocal Objective Labs Result Diagrams: 09/21/17 15:23 09/21/17 15:23 Labs: Laboratory Results - last 24 hr 09/21/17 09/21/17 09/21/17 15:23 15:23 15:23 WBC 8.5 RBC 4.70 Hgb 14.2 Hct 41.5 MCV 88.1 MCH 30.2 MCHC 34.3 RDW 14.1 Plt Count 148 L Seg Neutrophils % 51.0 Band Neutrophils % 1.0 L Lymphocytes % (Manual) 40.0 Monocytes % (Manual) 8.0 Eosinophils % (Manual) 0.0 L Basophils % (Manual) 0.0 RBC Morphology Normal morphology PT 15.3 H INR 1.4 H APTT 34 Sodium 137 Potassium 4.0 Chloride 100.0 Carbon Dioxide 25.0 BUN 15.0 Creatinine 0.70 Estimated GFR > 60.0 BUN/Creatinine Ratio 21.4 Glucose 284 H Calcium 9.9 Total Bilirubin 0.5 AST 21 ALT 29 Alkaline Phosphatase 119 Troponin I < 0.012 Total Protein 6.8 Albumin 3.7 Globulin 3.1 Albumin/Globulin Ratio 1.2 Ethyl Alcohol < [address] scan - head: Radiologist's impression: No acute intracranial abnormality. CT angiography brain: ECG: Sinus rhythm at 76 beats per minute, no ischemic changes, normal EKG Assessment & Plan Plan: Plan: 1. Transient ischemic attack. Likely hypertensive, possibly cardioembolic with subtherapeutic protime. Restart felodipine 10 mg daily. He should have close follow-up and may need to restart his losartan 100 mg daily, that he was on last year. Administer 10 mg of warfarin tonight and therapeutic dose Lovenox. Monitor frequent neurologic checks on telemetry. 2. Hypertension. Poorly controlled and off his previous antihypertensives for unclear reasons. Resume felodipine as noted and monitor. 3. Hyperlipidemia. Continue statin therapy. Check lipid panel in the morning. 4. Diabetes mellitus, type 2. Check hemoglobin A1c. Continue routine medication. 5. History of transient ischemic attacks, on warfarin. Presumably on warfarin for underlying atrial fibrillation. Recheck protime in the morning after increased dose of warfarin tonight. 6. Code status: Full code. 7. Disposition: Observation status. Likely discharge home tomorrow if doing well. Scores ABCD2 Age >= 60 years: yes Initial BP. Either SBP >= 140 or DBP >= 90.: yes Clinical features of the TIA: speech disturbance without weakness Duration of symptoms: >= 60 minutes History of diabetes: yes ABCD2 Score: 6 NIHSS Level of Conciousness: Alert, keenly responsive Ask month/age: Answers both questions correctly. Open/close eyes, close hand: Performs both tasks correctly Best gaze horizontal: Normal Visual mesa: No visual loss Facial palsy: Normal symetrical movement Left arm drift: No drift for full 10 sec Right arm drift: No drift for full 10 sec Left leg drift: No drift for full 10 sec Right leg drift: No drift for full 10 sec Limb ataxia: Absent Sensory on face/arms/legs: Normal, no sensory loss Best language: No aphasia, normal Dysarthria: Normal Extinction or inattention: No abnormality Total NIH Stroke scale score: 0
--- NOTE | 2017-09-21 19:30 | P.HP_ITS ---
History of Present Illness Chief complaint: Code Stroke Narrative: Haresh Pizarro is a 77 year old male with a history of TIAs who presented with expressive aphasia for approximately 90 min this afternoon. He states he was just leaving a friend's at about 3:00 p.m. when he noticed he had trouble expressing himself. He got on his motor bike and drove himself home, and as he pulled and he felt that he may have had a little trouble with coordination, but denies any lateralizing weakness, paresthesias, or ataxic symptoms, was able to get off his motor bike and get into his house. He subsequently was seen promptly in the emergency department and was about to be administered thrombolytics when his symptoms resolved completely, with his NIH stroke scale score going from 5 on presentation to 0. He had a similar presentation in August 2016 at this hospital, resolving and at which time he was started on aspirin and statin therapy. He states he has had 3 other identical episodes, all resolving within 2-1/2 hours. He is on warfarin for reasons that are unclear to him, but notes that his protime was in range last week. He does not usually measure blood sugars and does not also measure blood pressures, though states that tended to be high in the past. It is noted that he was on floated Pean 10 mg daily, losartan 100 mg daily in August 2016 when he last was seen at this hospital. Since then he has been started on warfarin. [facility] Medical History History of prostatitis (Acute) History of transient ischemic attack (Acute) Hypertension (Acute) Nephrolithiasis (Acute) Type 2 diabetes mellitus without complications (Acute) Surgical History H/O hernia repair (Acute) Social History Smoking Status: Former smoker alcohol intake: former additional social history: He quit smoking over 20 years ago. 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 He plans to move to [place] within a couple of days. He denies alcohol use. Meds Home Medications Medication Instructions Recorded Confirmed Type metformin [Glucophage XR] 1,000 mg PO BID #0 08/22/16 09/21/17 History glipizide 5 mg PO BID #180 02/18/17 09/21/17 History warfarin 5 mg PO DAILY 09/21/17 09/21/17 History Generic Name Dose Route Start Last Admin Trade Name Maame PRN Reason Stop Dose Admin Acetaminophen 650 mg 09/21/17 20:10 Tylenol PO Q6HR PRN As Needed for Fever/Mild Pain Aspirin 325 mg 09/22/17 09:00 Aspirin Ec PO DAILY [facility] Atorvastatin Calcium 20 mg 09/21/17 20:15 Lipitor PO HS [facility] Enoxaparin Sodium 105 mg 09/22/17 09:08 Lovenox 1 mg/kg (105 mg) 09/22/17 09:09 SUBCUT NOW ONE Felodipine 10 mg 09/21/17 20:10 Plendil PO DAILY [facility] Glipizide 5 mg 09/21/17 21:00 Glucotrol PO BID [facility] Sodium Chloride 1,000 mls @ 150 mls/hr 09/21/17 15:30 09/21/17 17:53 Normal Saline 0.9% IV 150 mls/hr CONT DHARMESH Administration Metformin HCl 1,000 mg 09/21/17 21:00 Glucophage Xr PO BID [facility] Warfarin Sodium 5 mg 09/22/17 09:00 Coumadin PO DAILY [facility] Warfarin Sodium 10 mg 09/21/17 20:07 Coumadin PO 09/21/17 20:08 NOW ONE Allergies Allergy/AdvReac Type Severity Reaction Status Date / Time codeine Allergy Unknown Unverified 08/14/17 12:52 ibuprofen [From MOTRIN] Allergy Unknown makes me Unverified 08/14/17 12:52 sick Sulfa (Sulfonamide Allergy Unknown Unverified 08/14/17 12:52 Antibiotics) Review of Systems Review of Systems All systems reviewed & are unremarkable except as noted in HPI and below Exam Vital Signs (past 8 hours): Vital Signs - 8 hr 3 09/21/17 15:22 09/21/17 18:37 Pulse Rate 77 78 Respiratory Rate 22 16 Blood Pressure 193/99 H 198/95 H Pulse Oximetry 98 97 Pulse Oximetry 97 Oxygen Delivery Method Room Air Narrative Exam Narrative: General: Alert, pleasant, appropriate, conversational with no apparent aphasia HEENT: Pupils 2 mm, round, reactive, extraocular movements intact, normal confrontational visual mesa, normal facial symmetry Neck: Supple without bruits Lungs: Clear to auscultation Cardiac: Regular rate and rhythm without appreciable murmur Abdomen: Soft, nontender, nondistended Extremities: Without edema Neurologic: Alert, oriented, cranial nerves 2-12, motor, sensory cerebellar grossly nonfocal Objective Labs Result Diagrams: 09/21/17 15:23 09/21/17 15:23 Labs: Laboratory Results - last 24 hr 09/21/17 09/21/17 09/21/17 15:23 15:23 15:23 WBC 8.5 RBC 4.70 Hgb 14.2 Hct 41.5 MCV 88.1 MCH 30.2 MCHC 34.3 RDW 14.1 Plt Count 148 L Seg Neutrophils % 51.0 Band Neutrophils % 1.0 L Lymphocytes % (Manual) 40.0 Monocytes % (Manual) 8.0 Eosinophils % (Manual) 0.0 L Basophils % (Manual) 0.0 RBC Morphology Normal morphology PT 15.3 H INR 1.4 H APTT 34 Sodium 137 Potassium 4.0 Chloride 100.0 Carbon Dioxide 25.0 BUN 15.0 Creatinine 0.70 Estimated GFR > 60.0 BUN/Creatinine Ratio 21.4 Glucose 284 H Calcium 9.9 Total Bilirubin 0.5 AST 21 ALT 29 Alkaline Phosphatase 119 Troponin I < 0.012 Total Protein 6.8 Albumin 3.7 Globulin 3.1 Albumin/Globulin Ratio 1.2 Ethyl Alcohol < [address] scan - head: Radiologist's impression: No acute intracranial abnormality. CT angiography brain: ECG: Sinus rhythm at 76 beats per minute, no ischemic changes, normal EKG Assessment & Plan Plan: Plan: 1. Transient ischemic attack. Likely hypertensive, possibly cardioembolic with subtherapeutic protime. Restart felodipine 10 mg daily. He should have close follow-up and may need to restart his losartan 100 mg daily, that he was on last year. Administer 10 mg of warfarin tonight and therapeutic dose Lovenox. Monitor frequent neurologic checks on telemetry. 2. Hypertension. Poorly controlled and off his previous antihypertensives for unclear reasons. Resume felodipine as noted and monitor. 3. Hyperlipidemia. Continue statin therapy. Check lipid panel in the morning. 4. Diabetes mellitus, type 2. Check hemoglobin A1c. Continue routine medication. 5. History of transient ischemic attacks, on warfarin. Presumably on warfarin for underlying atrial fibrillation. Recheck protime in the morning after increased dose of warfarin tonight. 6. Code status: Full code. 7. Disposition: Observation status. Likely discharge home tomorrow if doing well. Scores ABCD2 Age >= 60 years: yes Initial BP. Either SBP >= 140 or DBP >= 90.: yes Clinical features of the TIA: speech disturbance without weakness Duration of symptoms: >= 60 minutes History of diabetes: yes ABCD2 Score: 6 NIHSS Level of Conciousness: Alert, keenly responsive Ask month/age: Answers both questions correctly. Open/close eyes, close hand: Performs both tasks correctly Best gaze horizontal: Normal Visual mesa: No visual loss Facial palsy: Normal symetrical movement Left arm drift: No drift for full 10 sec Right arm drift: No drift for full 10 sec Left leg drift: No drift for full 10 sec Right leg drift: No drift for full 10 sec Limb ataxia: Absent Sensory on face/arms/legs: Normal, no sensory loss Best language: No aphasia, normal Dysarthria: Normal Extinction or inattention: No abnormality Total NIH Stroke scale score: 0
[2017-09-21 20:14] VITALS: BP 193/113; PULSE 74; RESP 21; TEMP 36.2; O2SAT 96
[2017-09-21] MEDS: glipiZIDE 5 MG TABLET PO (21:46)
[2017-09-21] MEDS: WARFARIN 5 MG TABLET 10 MG PO (21:46)
[2017-09-21] MEDS: ATORVASTATIN 20 MG TABLET PO (21:46)
[2017-09-21] MEDS: METFORMIN XR 500 MG TABLET 1000 MG PO (21:47)
[2017-09-21 22:07] VITALS: O2SAT 97
[2017-09-21 23:53] VITALS: BP 163/90; PULSE 72; RESP 18; TEMP 37.1; O2SAT 96
[2017-09-22 02:00] VITALS: O2SAT 95
[2017-09-22] MEDS: AMLODIPINE 5 MG TABLET 10 MG PO (02:58)
[2017-09-22 03:01] LABS: Appearance Urine UA CLEAR; Bilirubin Urine UA NEGATIVE (NEGATIVE); Color Urine UA YELLOW; Glucose Urine UA 1+ g/dL (Normal); Ketones Urine UA NEGATIVE (NEGATIVE); Leukocyte Esterase Urine UA NEGATIVE (NEGATIVE); Nitrite Urine UA NEGATIVE (NEGATIVE); Occult Blood Urine UA NEGATIVE (Negative); Protein Urine UA NEGATIVE (Negative); Urobilinogen Urine UA 0.2 E.U./dL (0.2)
[2017-09-22 03:02] LABS: Culture Indicated Urine Cult Not Indicated; Urine Comments Microscopic Normal
[2017-09-22] MEDS: SODIUM CHLORIDE 0.9% 1,000 ML 150 ML IV (03:31)
[2017-09-22 04:00] VITALS: BP 143/96; PULSE 67; RESP 18; TEMP 36.6; O2SAT 95
[2017-09-22 06:12] LABS: INR 1.7 (0.9-1.3)
[2017-09-22 06:16] LABS: Cholesterol 146 mg/dL (140-199); HDL Cholesterol 41 mg/dL (40-60); LDL Cholesterol Calculated 75 mg/dL (<100); Triglycerides 149 mg/dL (35-150)
[2017-09-22 06:20] LABS: Hemoglobin A1C% w Est Avg Glu 10.5 % (4.0-6.0)
[2017-09-22 07:50] VITALS: O2SAT 98
[2017-09-22 08:20] VITALS: BP 157/97; PULSE 86; RESP 18; TEMP 36.3; O2SAT 97
--- NOTE | 2017-09-22 08:41 | PM.DS.1 ---
History of Present Illness Chief complaint: Code Stroke Narrative: Haresh Pizarro is a 77 year old male with a history of TIAs who presented with expressive aphasia for approximately 90 min this afternoon. He states he was just leaving a friend's at about 3:00 p.m. when he noticed he had trouble expressing himself. He got on his motor bike and drove himself home, and as he pulled and he felt that he may have had a little trouble with coordination, but denies any lateralizing weakness, paresthesias, or ataxic symptoms, was able to get off his motor bike and get into his house. He subsequently was seen promptly in the emergency department and was about to be administered thrombolytics when his symptoms resolved completely, with his NIH stroke scale score going from 5 on presentation to 0. He had a similar presentation in August 2016 at this hospital, resolving and at which time he was started on aspirin and statin therapy. He states he has had 3 other identical episodes, all resolving within 2-1/2 hours. He is on warfarin for reasons that are unclear to him, but notes that his protime was in range last week. He does not usually measure blood sugars and does not also measure blood pressures, though states that tended to be high in the past. It is noted that he was on floated Pean 10 mg daily, losartan 100 mg daily in August 2016 when he last was seen at this hospital. Since then he has been started on warfarin. Discharge Providers Date of admission: 09/21/17 17:58 Primary care physician: SIXTO Kim Discharge provider: Gage Miller MD Summary Hospital Course: Discharge diagnoses: Procedures: Procedures: Procedures1. Transient ischemic attack, likely hypertensive in the setting of poor diabetes control. 2. Hypertension, poorly controlled off previous therapy. 3. Hyperlipidemia. 4. Diabetes mellitus, type 2, poorly controlled with medication non-adherence. 5. History of transient ischemic attacks, on warfarin. Procedures: 1. CT scan - head: No acute intracranial abnormality. 2. CT angiography brain: No acute process. Suboptimally visualized proximal right vertebral artery. Left vertebral artery is patent. Mild bilateral internal carotid artery stenosis as described above. Any quantitative measurements of stenosis were performed using NASCET criteria. 3. ECG: Sinus rhythm at 76 beats per minute, no ischemic changes, normal EKG Hospital course: The patient was admitted and monitored on telemetry. He had no further neurologic alterations, with NIH stroke scale score remaining at 0 for the remainder of his hospitalization. He remained in sinus rhythm on telemetry. He was on warfarin on admission for presumed underlying atrial fibrillation, though this is not known and outpatient follow-up should clarify this indication. At discharge his INR was 1.7 and ongoing warfarin instructions were provided, with close follow-up advised. He he is moving to [place] but is strongly advised that he should see his primary care provider before he goes out of town for a protime check and refill of his prescriptions. He was started on antihypertensive therapy consistent with his previous regimen with felodipine 10 mg daily, though had previously also been on losartan 100 mg daily, the latter not started but may be considered in outpatient follow-up if blood pressures remain persistently elevated. He had also been only taking half his prescribed doses of glipizide and metformin and was advised to take the full doses as detailed in the discharge medication list. His hemoglobin A1c was elevated over 10%. Compliance and adherence with his recommended medication regimen was strongly recommended to avoid risk of stroke and serious disability and possibly in the future. No other issues arose. Time Spent with Patient Total time spent providing and/or coordinating discharge services: Greater than 30 minutes Specific discharge activities: Discharge medications: Metformin ER 500 mg 2 tablets daily, warfarin 5 mg 5 days weekly except 7.5 mg on Mondays and , atorvastatin 20 mg nightly, felodipine 10 mg daily, glipizide 10 mg twice daily Disposition: Follow up with Dr. Yvonne mosley early this week for pro time check and medication follow-up Exam Vital Signs (past 8 hours): Vital Signs - 8 hr 09/22/17 02:00 09/22/17 04:00 09/22/17 08:20 Temperature 97.8 F 97.4 F L Pulse Rate 67 86 Respiratory Rate 18 18 Blood Pressure 143/96 H 157/97 H Pulse Oximetry 95 95 97 Pulse Oximetry 97 Oxygen Delivery Method Room Air Oxygen Flow Rate 0 Narrative Exam Narrative: General: Alert, pleasant, appropriate, conversational with no apparent aphasia HEENT: Pupils 2 mm, round, reactive, extraocular movements intact, normal confrontational visual mesa, normal facial symmetry Neck: Supple without bruits Lungs: Clear to auscultation Cardiac: Regular rate and rhythm without appreciable murmur Abdomen: Soft, nontender, nondistended Extremities: Without edema Neurologic: Alert, oriented, cranial nerves 2-12, motor, sensory cerebellar grossly nonfocal Objective Labs Result Diagrams: 09/21/17 15:23 09/21/17 15:23 Labs: Laboratory Results - last 24 hr 09/21/17 09/21/17 09/21/17 15:23 15:23 15:23 WBC 8.5 RBC 4.70 Hgb 14.2 Hct 41.5 MCV 88.1 MCH 30.2 MCHC 34.3 RDW 14.1 Plt Count 148 L Seg Neutrophils % 51.0 Band Neutrophils % 1.0 L Lymphocytes % (Manual) 40.0 Monocytes % (Manual) 8.0 Eosinophils % (Manual) 0.0 L Basophils % (Manual) 0.0 RBC Morphology Normal morphology PT 15.3 H INR 1.4 H APTT 34 Sodium 137 Potassium 4.0 Chloride 100.0 Carbon Dioxide 25.0 BUN 15.0 Creatinine 0.70 Estimated GFR > 60.0 BUN/Creatinine Ratio 21.4 Glucose 284 H Hemoglobin A1c Calcium 9.9 Total Bilirubin 0.5 AST 21 ALT 29 Alkaline Phosphatase 119 Troponin I < 0.012 Total Protein 6.8 Albumin 3.7 Globulin 3.1 Albumin/Globulin Ratio 1.2 Triglycerides Cholesterol LDL Cholesterol, Calc HDL Cholesterol Urine Color Urine Appearance Urine pH Ur Specific [place] Urine Protein Urine Glucose (UA) Urine Ketones Urine Occult Blood Urine Nitrate Urine Bilirubin Urine Urobilinogen Ur Leukocyte Esterase Ur Culture Indicated? Micro UA Comment Ethyl Alcohol < 10 09/22/17 09/22/17 09/22/17 02:39 05:53 05:53 WBC RBC Hgb Hct MCV MCH MCHC RDW Plt Count Seg Neutrophils % Band Neutrophils % Lymphocytes % (Manual) Monocytes % (Manual) Eosinophils % (Manual) Basophils % (Manual) RBC Morphology PT 18.0 H INR 1.7 H APTT Sodium Potassium Chloride Carbon Dioxide BUN Creatinine Estimated GFR BUN/Creatinine Ratio Glucose Hemoglobin A1c Calcium Total Bilirubin AST ALT Alkaline Phosphatase Troponin I Total Protein Albumin Globulin Albumin/Globulin Ratio Triglycerides 149 Cholesterol 146 LDL Cholesterol, Calc 75 HDL Cholesterol 41 Urine Color Yellow Urine Appearance Clear Urine pH 6.0 Ur Specific [place] 1.010 Urine Protein Negative Urine Glucose (UA) 1+ Urine Ketones Negative Urine Occult Blood Negative Urine Nitrate Negative Urine Bilirubin Negative Urine Urobilinogen 0.2 Ur Leukocyte Esterase Negative Ur Culture Indicated? Cult not indicated Micro UA Comment Microscopic normal Ethyl Alcohol 09/22/17 05:53 WBC RBC Hgb Hct MCV MCH MCHC RDW Plt Count Seg Neutrophils % Band Neutrophils % Lymphocytes % (Manual) Monocytes % (Manual) Eosinophils % (Manual) Basophils % (Manual) RBC Morphology PT INR APTT Sodium Potassium Chloride Carbon Dioxide BUN Creatinine Estimated GFR BUN/Creatinine Ratio Glucose Hemoglobin A1c 10.5 H Calcium Total Bilirubin AST ALT Alkaline Phosphatase Troponin I Total Protein Albumin Globulin Albumin/Globulin Ratio Triglycerides Cholesterol LDL Cholesterol, Calc HDL Cholesterol Urine Color Urine Appearance Urine pH Ur Specific [place] Urine Protein Urine Glucose (UA) Urine Ketones Urine Occult Blood Urine Nitrate Urine Bilirubin Urine Urobilinogen Ur Leukocyte Esterase Ur Culture Indicated? Micro UA Comment Ethyl Alcohol Discharge Plan Discharge Plan Patient Disposition: Home, Self-Care Provider Discharge Instructions Diet: Carb-consistent/Diabetic and Low-sodium Activity: Activity as tolerated Discharge Data Primary Care Provider: Yvonne Mosley Attending Provider: Gage Miller V Admit Date/Time: 09/21/17 17:58 Quality VTE Deep Vein Thrombosis/Pulmonary Embolism Present on Admission: No
--- NOTE | 2017-09-22 08:50 | P.DS_ITS ---
History of Present Illness Chief complaint: Code Stroke Narrative: Haresh Pizarro is a 77 year old male with a history of TIAs who presented with expressive aphasia for approximately 90 min this afternoon. He states he was just leaving a friend's at about 3:00 p.m. when he noticed he had trouble expressing himself. He got on his motor bike and drove himself home, and as he pulled and he felt that he may have had a little trouble with coordination, but denies any lateralizing weakness, paresthesias, or ataxic symptoms, was able to get off his motor bike and get into his house. He subsequently was seen promptly in the emergency department and was about to be administered thrombolytics when his symptoms resolved completely, with his NIH stroke scale score going from 5 on presentation to 0. He had a similar presentation in August 2016 at this hospital, resolving and at which time he was started on aspirin and statin therapy. He states he has had 3 other identical episodes, all resolving within 2-1/2 hours. He is on warfarin for reasons that are unclear to him, but notes that his protime was in range last week. He does not usually measure blood sugars and does not also measure blood pressures, though states that tended to be high in the past. It is noted that he was on floated Pean 10 mg daily, losartan 100 mg daily in August 2016 when he last was seen at this hospital. Since then he has been started on warfarin. Discharge Providers Date of admission: 09/21/17 17:58 Primary care physician: SIXTO Kim Discharge provider: Gage Miller MD Summary Hospital Course: Discharge diagnoses: Procedures: Procedures: Procedures1. Transient ischemic attack, likely hypertensive in the setting of poor diabetes control. 2. Hypertension, poorly controlled off previous therapy. 3. Hyperlipidemia. 4. Diabetes mellitus, type 2, poorly controlled with medication non-adherence. 5. History of transient ischemic attacks, on warfarin. Procedures: 1. CT scan - head: * No acute intracranial abnormality. 2. CT angiography brain: * No acute process. * Suboptimally visualized proximal right vertebral artery. Left vertebral artery is patent. * Mild bilateral internal carotid artery stenosis as described above. * Any quantitative measurements of stenosis were performed using NASCET criteria. 3. ECG: Sinus rhythm at 76 beats per minute, no ischemic changes, normal EKG Hospital course: The patient was admitted and monitored on telemetry. He had no further neurologic alterations, with NIH stroke scale score remaining at 0 for the remainder of his hospitalization. He remained in sinus rhythm on telemetry. He was on warfarin on admission for presumed underlying atrial fibrillation, though this is not known and outpatient follow-up should clarify this indication. At discharge his INR was 1.7 and ongoing warfarin instructions were provided, with close follow-up advised. He he is moving to [place] but is strongly advised that he should see his primary care provider before he goes out of town for a protime check and refill of his prescriptions. He was started on antihypertensive therapy consistent with his previous regimen with felodipine 10 mg daily, though had previously also been on losartan 100 mg daily , the latter not started but may be considered in outpatient follow-up if blood pressures remain persistently elevated. He had also been only taking half his prescribed doses of glipizide and metformin and was advised to take the full doses as detailed in the discharge medication list. His hemoglobin A1c was elevated over 10%. Compliance and adherence with his recommended medication regimen was strongly recommended to avoid risk of stroke and serious disability and possibly in the future. No other issues arose. Time Spent with Patient Total time spent providing and/or coordinating discharge services: Greater than 30 minutes Specific discharge activities: Discharge medications: Metformin ER 500 mg 2 tablets daily, warfarin 5 mg 5 days weekly except 7.5 mg on Mondays and , atorvastatin 20 mg nightly, felodipine 10 mg daily, glipizide 10 mg twice daily Disposition: Follow up with Dr. Yvonne mosley early this week for pro time check and medication follow-up Exam Vital Signs (past 8 hours): Vital Signs - 8 hr 3 09/22/17 02:00 09/22/17 04:00 09/22/17 08:20 Temperature 97.8 F 97.4 F L Pulse Rate 67 86 Respiratory Rate 18 18 Blood Pressure 143/96 H 157/97 H Pulse Oximetry 95 95 97 Pulse Oximetry 97 Oxygen Delivery Method Room Air Oxygen Flow Rate 0 Narrative Exam Narrative: General: Alert, pleasant, appropriate, conversational with no apparent aphasia HEENT: Pupils 2 mm, round, reactive, extraocular movements intact, normal confrontational visual mesa, normal facial symmetry Neck: Supple without bruits Lungs: Clear to auscultation Cardiac: Regular rate and rhythm without appreciable murmur Abdomen: Soft, nontender, nondistended Extremities: Without edema Neurologic: Alert, oriented, cranial nerves 2-12, motor, sensory cerebellar grossly nonfocal Objective Labs Result Diagrams: 09/21/17 15:23 09/21/17 15:23 Labs: Laboratory Results - last 24 hr 09/21/17 09/21/17 09/21/17 15:23 15:23 15:23 WBC 8.5 RBC 4.70 Hgb 14.2 Hct 41.5 MCV 88.1 MCH 30.2 MCHC 34.3 RDW 14.1 Plt Count 148 L Seg Neutrophils % 51.0 Band Neutrophils % 1.0 L Lymphocytes % (Manual) 40.0 Monocytes % (Manual) 8.0 Eosinophils % (Manual) 0.0 L Basophils % (Manual) 0.0 RBC Morphology Normal morphology PT 15.3 H INR 1.4 H APTT 34 Sodium 137 Potassium 4.0 Chloride 100.0 Carbon Dioxide 25.0 BUN 15.0 Creatinine 0.70 Estimated GFR > 60.0 BUN/Creatinine Ratio 21.4 Glucose 284 H Hemoglobin A1c Calcium 9.9 Total Bilirubin 0.5 AST 21 ALT 29 Alkaline Phosphatase 119 Troponin I < 0.012 Total Protein 6.8 Albumin 3.7 Globulin 3.1 Albumin/Globulin Ratio 1.2 Triglycerides Cholesterol LDL Cholesterol, Calc HDL Cholesterol Urine Color Urine Appearance Urine pH Ur Specific [place] Urine Protein Urine Glucose (UA) Urine Ketones Urine Occult Blood Urine Nitrate Urine Bilirubin Urine Urobilinogen Ur Leukocyte Esterase Ur Culture Indicated? Micro UA Comment Ethyl Alcohol < 10 09/22/17 09/22/17 09/22/17 02:39 05:53 05:53 WBC RBC Hgb Hct MCV MCH MCHC RDW Plt Count Seg Neutrophils % Band Neutrophils % Lymphocytes % (Manual) Monocytes % (Manual) Eosinophils % (Manual) Basophils % (Manual) RBC Morphology PT 18.0 H INR 1.7 H APTT Sodium Potassium Chloride Carbon Dioxide BUN Creatinine Estimated GFR BUN/Creatinine Ratio Glucose Hemoglobin A1c Calcium Total Bilirubin AST ALT Alkaline Phosphatase Troponin I Total Protein Albumin Globulin Albumin/Globulin Ratio Triglycerides 149 Cholesterol 146 LDL Cholesterol, Calc 75 HDL Cholesterol 41 Urine Color Yellow Urine Appearance Clear Urine pH 6.0 Ur Specific [place] 1.010 Urine Protein Negative Urine Glucose (UA) 1+ Urine Ketones Negative Urine Occult Blood Negative Urine Nitrate Negative Urine Bilirubin Negative Urine Urobilinogen 0.2 Ur Leukocyte Esterase Negative Ur Culture Indicated? Cult not indicated Micro UA Comment Microscopic normal Ethyl Alcohol 09/22/17 05:53 WBC RBC Hgb Hct MCV MCH MCHC RDW Plt Count Seg Neutrophils % Band Neutrophils % Lymphocytes % (Manual) Monocytes % (Manual) Eosinophils % (Manual) Basophils % (Manual) RBC Morphology PT INR APTT Sodium Potassium Chloride Carbon Dioxide BUN Creatinine Estimated GFR BUN/Creatinine Ratio Glucose Hemoglobin A1c 10.5 H Calcium Total Bilirubin AST ALT Alkaline Phosphatase Troponin I Total Protein Albumin Globulin Albumin/Globulin Ratio Triglycerides Cholesterol LDL Cholesterol, Calc HDL Cholesterol Urine Color Urine Appearance Urine pH Ur Specific [place] Urine Protein Urine Glucose (UA) Urine Ketones Urine Occult Blood Urine Nitrate Urine Bilirubin Urine Urobilinogen Ur Leukocyte Esterase Ur Culture Indicated? Micro UA Comment Ethyl Alcohol Discharge Plan Discharge Plan Patient Disposition: Home, Self-Care Provider Discharge Instructions Diet: Carb-consistent/Diabetic and Low-sodium Activity: Activity as tolerated Discharge Data Primary Care Provider: Yvonne Mosley Attending Provider: Gage Miller V Admit Date/Time: 09/21/17 17:58 Quality VTE Deep Vein Thrombosis/Pulmonary Embolism Present on Admission: No
[2017-09-22] MEDS: glipiZIDE 5 MG TABLET PO (09:11)
[2017-09-22] MEDS: ENOXAPARIN 100 MG/ML SYRINGE SUBCUT (09:11)
[2017-09-22] MEDS: FELODIPINE ER 5 MG TAB 10 MG PO (09:11)
[2017-09-22] MEDS: ASPIRIN EC 325 MG TABLET PO (09:11)
--- NOTE | 2017-09-22 10:57 | PC.NURSE ---
PT D/C'D TO HOME. ADVISED PT HE NEEDS TO FOLLOW-UP WITH PCP PER MD ORDERS. PT STATES HE IS MOVING OUT OF THE AREA IN A FEW DAYS. THIS WAREHOUSE PROCESSOR ENC PT TO CALL PCP TO GET FOLLOW UP. PT VERBALIZED UNDERSTANDING. PT LEFT WITH ALL PERSONAL BELONGINGS INCLUDING HOME MEDS. ESCORTED OUT TO PRIVATE VEHICLE VIA W/C.
--- NOTE | 2017-09-22 12:23 | CM.DPC ---
DCP Summary: Pt was dc'd prior to assessment. Reviewed record. Admit dx was TIA. Spoke w/ MD and he informed pt was I at baseline, planning a trip soon and was very eager to discharge. So no needs identified. Emery Blancas RN
--- NOTE | 2017-09-22 12:32 | CM.DPC ---
DCP: fax'd clinicals to [facility] Emery Blancas RN
== END 2017-09-22 10:30 | disposition home or self-care (01) ==
LOC: ED 16:04 → AC 18:43
PROVIDERS: Admitting Provider Internal Medicine; Emergency Provider Emergency Medicine; Family Provider Nurse Practitioner; PCP Nurse Practitioner; Visit Provider Internal Medicine
DX: G45.8 Other transient cerebral ischemic attacks and related syndromes (principal); I10 Essential (primary) hypertension; Z87.891 Personal history of nicotine dependence; Z79.01 Long term (current) use of anticoagulants; E78.5 Hyperlipidemia, unspecified; E11.65 Type 2 diabetes mellitus with hyperglycemia; Z79.84 Long term (current) use of oral hypoglycemic drugs; Z91.14 Patient's other noncompliance with medication regimen
CPT/HCPCS: 36415; 70450; 70496; 70498; 80053; 80061; 80320; 81001; 82962; 83036; 84484; 85025; 85610; 85730; 93005; 96360; 96361; 96372; 99282; 99285; 99291; 99292; G0378; J1650; Q9967

== ENCOUNTER 2022-02-14 11:42 | Emergency (ER) | payer MEDICARE, SELFPAY ==
[2022-02-14] VITALS (29 sets, daily range): BP systolic 95–161; BP diastolic 53–94; PULSE 76–92; RESP 8–40; TEMP 36.9–37; O2SAT 89–98
--- NOTE | 2022-02-14 12:12 | DI.RAD.S_ITS ---
PROCEDURE: XR CHEST 1V INDICATIONS: chest pain TECHNIQUE: One view of the chest was acquired. COMPARISON: [facility], , CHEST 1 VIEW, 11/01/2016, 13:02. [facility], , CHEST 1 VIEW, 12/04/2016, 15:02. [facility], , CHEST 1 VIEW, 02/18/2017, 18:24. FINDINGS: Surgical changes and devices: None. Lungs and pleura: Lungs are clear. No pleural effusions or pneumothorax. Mediastinum: Mediastinal contours appear normal. Heart size is normal. Bones and chest wall: No suspicious bony lesions. Overlying soft tissues appear unremarkable. IMPRESSION: No acute cardiopulmonary disease. Dictated by: Darcy Cuello M.D. on 02/14/2022 at 14:05 Approved by: Darcy Cuello M.D. on 02/14/2022 at 14:06
[2022-02-14 12:23] LABS: Add Manual Diff / Slide Review NO; Basophils Absolute Auto 0 /uL (0-100); Basophils Percent Auto 0.5 % (0-2); Eosinophils Absolute Auto 0 /uL (0-450); Hematocrit 34.8 % (41-53); Hemoglobin 11.9 g/dL (13.5-17.5); Lymphocytes Absolute Auto 1500 /uL (1100-4500); Lymphocytes Percent Auto 20.1 % (25-40); Mean Corpuscular HGB Conc 34.2 % (30-36); Mean Corpuscular Hemoglobin 30.3 PG (26-34); Mean Corpuscular Volume 88.5 fL (80-100); Monocytes Absolute Auto 2200 /uL (0-900); Monocytes Percent Auto 29.2 % (3-14); Neutrophils Absolute Auto 3800 /uL (1500-7000); Neutrophils Percent Auto 50.2 % (50-75); Platelet Count 138 X10^3/uL (150-400); Red Blood Cell Count 3.93 X10^6/uL (4.5-5.9); Red Cell Distribution Width 14.7 % (11.6-14.8); White Blood Cell Count 7.5 X10^3/uL (4.5-11.0)
[2022-02-14 12:31] LABS: Alanine Aminotransferase 28 IU/L (<50); Albumin Globulin Ratio 1.1 (1.0-2.8); Alkaline Phosphatase 49 U/L (38-126); Aspartate Aminotransferase 47 IU/L (17-59); BUN Creatinine Ratio 17.5 (6-22); Bilirubin Total 0.7 mg/dL (0.2-1.3); Blood Urea Nitrogen 24 mg/dL (9-20); Calcium 9.7 mg/dL (8.4-10.2); Carbon Dioxide 22 mmol/L (22-32); Chloride 97 mmol/L (98-107); Creatine Kinase 55 U/L (55-170); Estimated Glomerular Filt Rate 52 mL/min (>60); Globulin 3.5 g/dL (1.7-4.1); Glucose 160 mg/dL (80-110); HEMOLYSIS 28 (0-50); Lipase 70 U/L (23-300); Magnesium 1.1 mg/dL (1.6-2.3); Potassium 4.1 mmol/L (3.4-5.1); Sodium 133 mmol/L (137-145); Total Protein 7.5 g/dL (6.3-8.2)
[2022-02-14 12:33] LABS: INR 1.2 (0.9-1.3); Prothrombin Time 14.1 SECONDS (10.1-12.7)
[2022-02-14 12:35] LABS: COVID19 -Nasal RAPID POSITIVE (Negative)
[2022-02-14 12:36] LABS: PTT Partial Thromboplastin Tim 30 SECONDS (26-36)
[2022-02-14 12:42] LABS: Troponin I 0.014 ng/mL (0.01-0.034)
--- NOTE | 2022-02-14 12:47 | DI.CT.S_ITS ---
PROCEDURE: CT HEAD/BRAIN WO CON INDICATIONS: trauma on thinners TECHNIQUE: Noncontrast 4.5 mm thick angled axial sections acquired from the foramen magnum to the vertex, with coronal and sagittal reformats. For radiation dose reduction, the following was used: automated exposure control, adjustment of mA and/or kV according to patient size. COMPARISON: CT, HEAD AND NECK ANGIO, 08/22/2016, 20:55. MR, BRAIN WITHOUT CONTRAST, 08/23/2016, 8:41. [facility], CT, CT HEAD/BRAIN WO CON, 09/21/2017, 15:08. FINDINGS: Image quality: Excellent. CSF spaces: Basal cisterns are patent. No extra-axial fluid collections. The ventricles are symmetric in size and shape. Brain: No intracranial bleeds or masses. There is cerebral volume loss for age, with resultant ventricular and sulcal prominence. There are periventricular and deep white matter chronic small vessel ischemic changes. There is intracranial internal carotid artery atherosclerosis. Skull and face: Calvarium and visualized facial bones appear intact, without suspicious lesions. Sinuses: Visualized sinuses and mastoids are clear. IMPRESSION: 1. No acute intracranial abnormalities. 2. Cerebral volume loss and chronic microvascular ischemic changes. Dictated by: Darcy Cuello M.D. on 02/14/2022 at 13:51 Approved by: Darcy Cuello M.D. on 02/14/2022 at 13:54
--- NOTE | 2022-02-14 12:48 | ED_ITS ---
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 a GFR of 52, no prior kidney injury on his lab work. Initial blood sugar was 287, he was given 2 L of IV fluid, his initial lactate was 3.5 which came down to 1.2 after fluid resuscitation. Was given 2 g of magnesium for hypomagnesemia of 1.1, his repeat was 1.7, no elevation to his BNP, troponin, liver enzymes, lipase, or other. Patient was incontinent of urine x1, he had a trace of protein and glucose in his urine but no other abnormal findings. His COVID PCR is positive and he is on day 3 of his symptoms. This is likely why patient was weak today, EKG does not show any acute changes. Chest x-ray was negative for acute cardiopulmonary abnormalities as well. Opted to treat patient with Paxlovid due to his comorbidities and illness today, encouraged him to stay hydrated, avoid taking his atorvastatin. It does not appear that his fluconazole as a current medication and I do not think he is on warfarin either as his INR was 1.2 today. He has scheduled follow-up with his PCP next week, encouraged him to return for any worsening in the meantime. Patient is appropriate and amenable to discharge home. Vital signs are stable on repeat examination is unremarkable. Patient has been informed of results. Patient has been given strict return to ER precautions for any new or worsening symptoms. Patient understands to follow up closely with outpatient providers as instructed. Patient understands plan and agrees to discharge home. All questions and concerns answered at this time. <Bernadette Mullins, - Last Filed: 02/14/22 20:33> Lab Data Labs: Lab Results 02/14/22 02/14/22 02/14/22 Range/Units 11:55 11:59 11:59 WBC 7.5 (4.5-11.0) X10^3/uL RBC 3.93 L (4.5-5.9) X10^6/uL Hgb 11.9 L (13.5-17.5) g/dL Hct 34.8 L (41-53) % MCV 88.5 (80-100) fL MCH 30.3 (26-34) PG MCHC 34.2 (30-36) % RDW 14.7 (11.6-14.8) % Plt Count 138 L (150-400) X10^3/uL Neut % (Auto) 50.2 (50-75) % Lymph % (Auto) 20.1 L (25-40) % Glenn % (Auto) 29.2 H (3-14) % Eos % (Auto) 0.0 L (2-4) % Baso % (Auto) 0.5 (0-2) % Neut # (Auto) 3800 (8744-2736) /uL Lymph # (Auto) 1500 (0005-9435) /uL Glenn # (Auto) 2200 H (0-900) /uL Eos # (Auto) 0 (0-450) /uL Baso # (Auto) 0 (0-100) /uL PT (10.1-12.7) SECONDS INR (0.9-1.3) APTT (26-36) SECONDS Sodium 133 L (137-145) mmol/L Potassium 4.1 (3.4-5.1) mmol/L Chloride 97 L (98-107) mmol/L Carbon Dioxide 22 (22-32) mmol/L BUN 24 H (9-20) mg/dL Creatinine 1.37 H (0.66-1.25) mg/dL Estimated GFR 52 L (>60) mL/min BUN/Creatinine Ratio 17.5 (6-22) Glucose 160 H (80-110) mg/dL Lactate 3.5 H (0.7-2.1) mmol/L Calcium 9.7 (8.4-10.2) mg/dL Magnesium 1.1 L (1.6-2.3) mg/dL Total Bilirubin 0.7 (0.2-1.3) mg/dL AST 47 (17-59) IU/L ALT 28 (<50) IU/L Alkaline Phosphatase 49 (38-126) U/L Total Creatine Kinase 55 (55-170) U/L CK-MB (CK-2) TNP CK-MB (CK-2) Rel Index TNP Troponin I 0.014 (0.01-0.034) ng/mL NT-Pro-B Natriuret Pep (<450) pg/mL Total Protein 7.5 (6.3-8.2) g/dL Albumin 4.0 (3.5-5.0) g/dL Globulin 3.5 (1.7-4.1) g/dL Albumin/Globulin Ratio 1.1 (1.0-2.8) Lipase 70 (23-300) U/L Urine Color Urine Appearance Urine pH (4.5-8.0) Ur Specific [place] (1.000-1.035) Urine Protein (Negative) Urine Glucose (UA) (Negative) g/dL Urine Ketones (NEGATIVE) Urine Occult Blood (Negative) Urine Nitrate (Negative) Urine Bilirubin (NEGATIVE) Urine Urobilinogen (0.2) E.U./dL Ur Leukocyte Esterase (NEGATIVE) Urine RBC (0-5/HPF) Urine WBC (0-5/HPF) Urine Bacteria (None) Ur Culture Indicated? Micro UA Comment SARS-CoV-2 (PCR) (Negative) 02/14/22 02/14/22 02/14/22 Range/Units 11:59 12:12 14:05 WBC (4.5-11.0) X10^3/uL RBC (4.5-5.9) X10^6/uL Hgb (13.5-17.5) g/dL Hct (41-53) % MCV (80-100) fL MCH (26-34) PG MCHC (30-36) % RDW (11.6-14.8) % Plt Count (150-400) X10^3/uL Neut % (Auto) (50-75) % Lymph % (Auto) (25-40) % Glenn % (Auto) (3-14) % Eos % (Auto) (2-4) % Baso % (Auto) (0-2) % Neut # (Auto) (8850-6178) /uL Lymph # (Auto) (8714-2192) /uL Glenn # (Auto) (0-900) /uL Eos # (Auto) (0-450) /uL Baso # (Auto) (0-100) /uL PT 14.1 H (10.1-12.7) SECONDS INR 1.2 (0.9-1.3) APTT 30 (26-36) SECONDS Sodium (137-145) mmol/L Potassium (3.4-5.1) mmol/L Chloride (98-107) mmol/L Carbon Dioxide (22-32) mmol/L BUN (9-20) mg/dL Creatinine (0.66-1.25) mg/dL Estimated GFR (>60) mL/min BUN/Creatinine Ratio (6-22) Glucose (80-110) mg/dL Lactate 2.2 H (0.7-2.1) mmol/L Calcium (8.4-10.2) mg/dL Magnesium (1.6-2.3) mg/dL Total Bilirubin (0.2-1.3) mg/dL AST (17-59) IU/L ALT (<50) IU/L Alkaline Phosphatase (38-126) U/L Total Creatine Kinase (55-170) U/L CK-MB (CK-2) CK-MB (CK-2) Rel Index Troponin I (0.01-0.034) ng/mL NT-Pro-B Natriuret Pep (<450) pg/mL Total Protein (6.3-8.2) g/dL Albumin (3.5-5.0) g/dL Globulin (1.7-4.1) g/dL Albumin/Globulin Ratio (1.0-2.8) Lipase (23-300) U/L Urine Color Urine Appearance Urine pH (4.5-8.0) Ur Specific [place] (1.000-1.035) Urine Protein (Negative) Urine Glucose (UA) (Negative) g/dL Urine Ketones (NEGATIVE) Urine Occult Blood (Negative) Urine Nitrate (Negative) Urine Bilirubin (NEGATIVE) Urine Urobilinogen (0.2) E.U./dL Ur Leukocyte Esterase (NEGATIVE) Urine RBC (0-5/HPF) Urine WBC (0-5/HPF) Urine Bacteria (None) Ur Culture Indicated? Micro UA Comment SARS-CoV-2 (PCR) Positive H (Negative) 02/14/22 02/14/22 02/14/22 Range/Units 15:40 16:05 16:05 WBC (4.5-11.0) X10^3/uL RBC (4.5-5.9) X10^6/uL Hgb (13.5-17.5) g/dL Hct (41-53) % MCV (80-100) fL MCH (26-34) PG MCHC (30-36) % RDW (11.6-14.8) % Plt Count (150-400) X10^3/uL Neut % (Auto) (50-75) % Lymph % (Auto) (25-40) % Glenn % (Auto) (3-14) % Eos % (Auto) (2-4) % Baso % (Auto) (0-2) % Neut # (Auto) (3614-4330) /uL Lymph # (Auto) (2697-2566) /uL Glenn # (Auto) (0-900) /uL Eos # (Auto) (0-450) /uL Baso # (Auto) (0-100) /uL PT (10.1-12.7) SECONDS INR (0.9-1.3) APTT (26-36) SECONDS Sodium (137-145) mmol/L Potassium (3.4-5.1) mmol/L Chloride (98-107) mmol/L Carbon Dioxide (22-32) mmol/L BUN (9-20) mg/dL Creatinine (0.66-1.25) mg/dL Estimated GFR (>60) mL/min BUN/Creatinine Ratio (6-22) Glucose (80-110) mg/dL Lactate 1.2 (0.7-2.1) mmol/L Calcium (8.4-10.2) mg/dL Magnesium 1.7 (1.6-2.3) mg/dL Total Bilirubin (0.2-1.3) mg/dL AST (17-59) IU/L ALT (<50) IU/L Alkaline Phosphatase (38-126) U/L Total Creatine Kinase (55-170) U/L CK-MB (CK-2) CK-MB (CK-2) Rel Index Troponin I (0.01-0.034) ng/mL NT-Pro-B Natriuret Pep 279 (<450) pg/mL Total Protein (6.3-8.2) g/dL Albumin (3.5-5.0) g/dL Globulin (1.7-4.1) g/dL Albumin/Globulin Ratio (1.0-2.8) Lipase (23-300) U/L Urine Color Yellow Urine Appearance Clear Urine pH 5.0 (4.5-8.0) Ur Specific [place] 1.015 (1.000-1.035) Urine Protein Trace H (Negative) Urine Glucose (UA) Trace H (Negative) g/dL Urine Ketones Negative (NEGATIVE) Urine Occult Blood Negative (Negative) Urine Nitrate Negative (Negative) Urine Bilirubin Negative (NEGATIVE) Urine Urobilinogen 0.2 (0.2) E.U./dL Ur Leukocyte Esterase Negative (NEGATIVE) Urine RBC None seen (0-5/HPF) Urine WBC None seen (0-5/HPF) Urine Bacteria None seen (None) Ur Culture Indicated? Cult not indicated Micro UA Comment Microscopic normal SARS-CoV-2 (PCR) (Negative) Discharge Plan Departure Patient Disposition: Home Clinical Impression: COVID-19, Subtherapeutic international normalized ratio (INR), Thrombocytopenia associated with COVID-19, Chronic anticoagulation, DAINA (acute kidney injury), Hypomagnesemia Fall Qualifiers: Encounter type: initial encounter Qualified Code(s): W19.XXXA - Unspecified fall, initial encounter Pressure ulcer Qualifiers: Pressure injury location: buttock Pressure injury stage: stage 2 Laterality: right Qualified Code(s): L89.312 - Pressure ulcer of right buttock, stage 2 Instructions: How to Prevent Pressure Ulcers, Pressure Injuries, Dehydration, Pressure Sore, DI for Hypomagnesemia, COVID-19 Activity Restrictions/Additional Instructions: *You have been diagnosed with COVID-19. I am giving you treatment for COVID to help prevent you from needing hospitalization. I need you to hold your atorvastatin, do not take any for the next 5 days while taking this medication for COVID called Paxlovid. Please take your metformin anterior glipizide as needed, please follow-up with your regular doctor regarding your warfarin, I do not think that you are currently on because your INR is low. Please go to your appointment with Yvonne mosley and discuss these findings. For your wound on your rear, please apply topical antibiotic to the open area, please using barrier cream across all of your red area of your bottom that is tender and do this f requently eat at least twice a day or if it rubs off. If you wear a brief, you can apply Vaseline to the brief so it does not stick to the cream. Try to avoid sitting for long periods of time and change positions frequently, this is most likely a pressure ulcer from your body weight sitting on this position. I hope that you start feeling better soon, please return for any worsening of your symp toms. Please stay hydrated, and follow-up with your provider. *What to do: *Please continue to take your regular medications as directed. [x ] New medication prescriptions sent to your pharmacy: [ [facility]] [ ] New medication written as a paper prescription [ ] No new medications given *Please follow up with your primary care provider in 2-3 days, call for an appointment. Let them know you were seen in the Emergency Department and that we asked that you be seen for follow-up. We will electronically transmit a record of today's note if your PCP is in our system *If you do not have a primary care provider please contact [phone] to establish care with one of the [facility] primary care providers. *Return to Emergency Department if you should have any new, worsening, or concerning symptoms, such as [fever greater than 101F, chills, worsening pain, persistent vomiting or other bothersome symptoms]. Prescriptions: New Paxlovid (EUA) 300 mg (150 mg x 2)-100 mg tablets,dose pack See Rx Instructions .ROUTE .COMPLEX Qty: 30 0RF Rx Instructions: take TWO 150 mg tablets of nirmatrelvir with ONE 100 mg tablet of ritonavir twice daily for 5 days, Hold your atorvastatin while taking this medicine cetirizine 10 mg tablet 10 mg PO BEDTIME Qty: 20 0RF magnesium oxide 500 mg tablet 500 mg PO BEDTIME Qty: 30 0RF Claudy Protect (zinc oxide) 12 % cream 1 applic topical DAILY PRN (Reason: skin irritation) Qty: 142 0RF mupirocin 2 % ointment 1 applic topical BID Qty: 22 0RF No Action fluconazole 150 mg tablet 150 mg PO QWEEK Qty: 2 0RF atorvastatin [Lipitor] 20 MG tablet 20 mg PO HS Qty: 30 9RF felodipine 5 mg Tablet Extended Release 24 Hr 10 mg PO DAILY Qty: 30 0RF warfarin 5 mg tablet 5 mg PO DAILY Qty: 36 0RF Rx Instructions: 5mg five days weekly, 7.5mg Saturday and glipizide 10 mg tablet 10 mg PO BID Qty: 60 0RF metformin 500 mg tablet extended release 24hr 1,000 mg PO DAILY Qty: 60 0RF Rx Instructions: administer with evening meal Referrals: Yvonne Mosley ARNP [Primary Care Provider] - Visit Report Forms: Patient Portal/API <Bernadette Mullins DO - Last Filed: 02/14/22 20:33> Cosign ED Attending Sukiature Attestation: I was immediately available in the department for consultation. Documentation has been reviewed.
[2022-02-14 13:15] LABS: Lactate (Lactic Acid) 3.5 mmol/L (0.7-2.1)
[2022-02-14] MEDS: LACTATED RINGERS 1,000 ML 1000 ML IV (13:46)
[2022-02-14] MEDS: BACITRACIN OINT 0.9 GM PCKT 1 APPLIC TOP (13:47)
[2022-02-14] MEDS: ACETAMINOPHEN 325 MG TABLET 650 MG PO (13:47)
[2022-02-14] MEDS: MAGNESIUM SULFATE 2 GM/50 ML PIGGYBACK IV (14:30)
[2022-02-14 14:37] LABS: Lactate (Lactic Acid) 2.2 mmol/L (0.7-2.1)
[2022-02-14 15:06] LABS: Reflexed Lactate in 2 Hours Y
[2022-02-14 16:08] LABS: Appearance Urine UA CLEAR; Bilirubin Urine UA NEGATIVE (NEGATIVE); Color Urine UA YELLOW; Glucose Urine UA TRACE g/dL (Negative); Ketones Urine UA NEGATIVE (NEGATIVE); Leukocyte Esterase Urine UA NEGATIVE (NEGATIVE); Nitrite Urine UA NEGATIVE (Negative); Occult Blood Urine UA NEGATIVE (Negative); Protein Urine UA TRACE (Negative); Specific Gravity Urine UA 1.015 (1.000-1.035); Urobilinogen Urine UA 0.2 E.U./dL (0.2)
[2022-02-14 16:17] LABS: Reflexed Lactate in 2 Hours Y
[2022-02-14 16:39] LABS: RBC Urine None Seen (0-5/HPF); WBC Urine None Seen (0-5/HPF)
[2022-02-14 16:40] LABS: Lactate 2HR (Lactic Acid Rflx) 1.2 mmol/L (0.7-2.1); Magnesium 1.7 mg/dL (1.6-2.3)
[2022-02-14 16:40] LABS: Bacteria Urine None Seen; Culture Indicated Urine Cult Not Indicated; Urine Comments Microscopic Normal
[2022-02-14 16:50] LABS: NT-proBNP (BNP-Adult 18+) 279 pg/mL (<450)
== END 2022-02-14 17:33 | disposition home or self-care (01) ==
PROVIDERS: Emergency Provider Nurse Practitioner Critical Care Medicine; Family Provider Nurse Practitioner; PCP Nurse Practitioner
DX: U07.1 COVID-19 (principal); L89.312 Pressure ulcer of right buttock, stage 2; R79.1 Abnormal coagulation profile; N17.9 Acute kidney failure, unspecified; E83.42 Hypomagnesemia; D69.6 Thrombocytopenia, unspecified; R07.9 Chest pain, unspecified; Z79.01 Long term (current) use of anticoagulants
CPT/HCPCS: 36415; 70450; 71045; 80053; 81001; 82550; 83605; 83690; 83735; 83880; 84484; 85025; 85610; 85730; 87040; 87070; 87075; 87205; 87220; 87635; 93005; 93010; 96365; 99285; C9803; J3475

== ENCOUNTER → 2022-08-31 09:05 | Outpatient (CLI) | payer OTHER, SELFPAY ==
[2022-08-31 10:21] LABS: Add Manual Diff / Slide Review NO; Basophils Absolute Auto 100 /uL (0-100); Basophils Percent Auto 0.6 % (0-2); Eosinophils Absolute Auto 200 /uL (0-450); Hematocrit 35.9 % (41-53); Hemoglobin 12.2 g/dL (13.5-17.5); Lymphocytes Absolute Auto 2800 /uL (1100-4500); Lymphocytes Percent Auto 32.5 % (25-40); Mean Corpuscular HGB Conc 33.9 % (30-36); Mean Corpuscular Hemoglobin 30.6 PG (26-34); Mean Corpuscular Volume 90.3 fL (80-100); Monocytes Absolute Auto 700 /uL (0-900); Neutrophils Absolute Auto 5000 /uL (1500-7000); Neutrophils Percent Auto 56.9 % (50-75); Platelet Count 182 X10^3/uL (150-400); Red Blood Cell Count 3.98 X10^6/uL (4.5-5.9); Red Cell Distribution Width 14.4 % (11.6-14.8); White Blood Cell Count 8.7 X10^3/uL (4.5-11.0)
== END ==
PROVIDERS: Family Provider Nurse Practitioner; PCP Nurse Practitioner; Referring Provider Nurse Practitioner; Visit Provider Nurse Practitioner
DX: D64.9 Anemia, unspecified (principal)
CPT/HCPCS: 36415; 85025

== ENCOUNTER → 2022-09-17 10:29 | Outpatient (CLI) | payer OTHER, SELFPAY ==
[2022-09-17 12:13] LABS: Occult Blood 1 Negative (Negative); Occult Blood 2 Negative (Negative); Occult Blood 3 Negative (Negative)
== END ==
PROVIDERS: Family Provider Nurse Practitioner; PCP Nurse Practitioner; Referring Provider Nurse Practitioner; Visit Provider Nurse Practitioner
DX: D64.9 Anemia, unspecified (principal)
CPT/HCPCS: 82270

== ENCOUNTER → 2022-09-21 11:16 | Outpatient (CLI) | payer OTHER, SELFPAY ==
[2022-09-21 12:36] LABS: Add Manual Diff / Slide Review NO; Basophils Absolute Auto 0 /uL (0-100); Basophils Percent Auto 0.5 % (0-2); Eosinophils Absolute Auto 200 /uL (0-450); Eosinophils Percent Auto 2.2 % (2-4); Hematocrit 36.3 % (41-53); Hemoglobin 12.2 g/dL (13.5-17.5); Lymphocytes Absolute Auto 2800 /uL (1100-4500); Lymphocytes Percent Auto 35.5 % (25-40); Mean Corpuscular HGB Conc 33.7 % (30-36); Mean Corpuscular Hemoglobin 30.5 PG (26-34); Mean Corpuscular Volume 90.4 fL (80-100); Monocytes Absolute Auto 700 /uL (0-900); Monocytes Percent Auto 8.7 % (3-14); Neutrophils Absolute Auto 4200 /uL (1500-7000); Neutrophils Percent Auto 53.1 % (50-75); Platelet Count 163 X10^3/uL (150-400); Red Blood Cell Count 4.02 X10^6/uL (4.5-5.9); Red Cell Distribution Width 14.1 % (11.6-14.8); White Blood Cell Count 7.9 X10^3/uL (4.5-11.0)
== END ==
PROVIDERS: Family Provider Nurse Practitioner; PCP Nurse Practitioner; Referring Provider Nurse Practitioner; Visit Provider Nurse Practitioner
DX: D64.9 Anemia, unspecified (principal)
CPT/HCPCS: 36415; 85025

== ENCOUNTER → 2022-09-28 09:17 | Outpatient (CLI) | payer OTHER, SELFPAY ==
[2022-09-28 10:10] LABS: Add Manual Diff / Slide Review NO; Basophils Absolute Auto 0 /uL (0-100); Basophils Percent Auto 0.6 % (0-2); Eosinophils Absolute Auto 200 /uL (0-450); Eosinophils Percent Auto 2.3 % (2-4); Hemoglobin 12.5 g/dL (13.5-17.5); Lymphocytes Absolute Auto 2800 /uL (1100-4500); Lymphocytes Percent Auto 32.8 % (25-40); Mean Corpuscular HGB Conc 33.9 % (30-36); Mean Corpuscular Hemoglobin 30.7 PG (26-34); Mean Corpuscular Volume 90.7 fL (80-100); Monocytes Absolute Auto 900 /uL (0-900); Monocytes Percent Auto 10.6 % (3-14); Neutrophils Absolute Auto 4500 /uL (1500-7000); Neutrophils Percent Auto 53.7 % (50-75); Platelet Count 157 X10^3/uL (150-400); Red Blood Cell Count 4.08 X10^6/uL (4.5-5.9); Red Cell Distribution Width 14.3 % (11.6-14.8); White Blood Cell Count 8.4 X10^3/uL (4.5-11.0)
[2022-09-28 10:25] LABS: Creatinine Urine Random 110.5 mg/dL
[2022-09-28 10:29] LABS: Microalbumi Creatinin Ratio Ur 6.3 ug/mg CR (<30); Microalbumin Urine Random 0.7 mg/dL (0-1.6)
[2022-09-28 10:34] LABS: Alanine Aminotransferase 21 IU/L (<50); Albumin 3.9 g/dL (3.5-5.0); Albumin Globulin Ratio 1.3 (1.0-2.8); Alkaline Phosphatase 89 U/L (38-126); Aspartate Aminotransferase 21 IU/L (17-59); BUN Creatinine Ratio 19.7 (6-22); Bilirubin Total 0.5 mg/dL (0.2-1.3); Blood Urea Nitrogen 27 mg/dL (9-20); Calcium 10.5 mg/dL (8.4-10.2); Carbon Dioxide 27 mmol/L (22-32); Chloride 103 mmol/L (98-107); Estimated Glomerular Filt Rate 52 mL/min (>60); Glucose 162 mg/dL (80-110); HEMOLYSIS < 15 (0-50); Potassium 4.6 mmol/L (3.4-5.1); Sodium 138 mmol/L (137-145); Total Protein 6.9 g/dL (6.3-8.2)
[2022-09-29 06:02] LABS: x Labcorp Estim. Avg Glu (eAG) 140 mg/dL (.); x Labcorp Hemoglobin A1c 6.5 % (4.8-5.6)
== END ==
PROVIDERS: Family Provider Nurse Practitioner; PCP Nurse Practitioner; Referring Provider Nurse Practitioner; Visit Provider Nurse Practitioner
DX: E11.69 Type 2 diabetes mellitus with other specified complication (principal); D64.9 Anemia, unspecified
CPT/HCPCS: 36415; 80053; 82043; 82570; 83036; 85025

== ENCOUNTER → 2022-11-17 11:53 | Outpatient (CLI) | payer OTHER, SELFPAY ==
[2022-11-17 13:01] LABS: Alanine Aminotransferase 21 IU/L (<50); Albumin 4.1 g/dL (3.5-5.0); Albumin Globulin Ratio 1.3 (1.0-2.8); Alkaline Phosphatase 74 U/L (38-126); Aspartate Aminotransferase 24 IU/L (17-59); BUN Creatinine Ratio 17.1 (6-22); Bilirubin Total 0.5 mg/dL (0.2-1.3); Blood Urea Nitrogen 21 mg/dL (9-20); Calcium 11.2 mg/dL (8.4-10.2); Carbon Dioxide 28 mmol/L (22-32); Chloride 102 mmol/L (98-107); Estimated Glomerular Filt Rate 59 mL/min (>60); Globulin 3.1 g/dL (1.7-4.1); Glucose 198 mg/dL (80-110); HEMOLYSIS < 15 (0-50); Potassium 4.6 mmol/L (3.4-5.1); Sodium 137 mmol/L (137-145); Total Protein 7.2 g/dL (6.3-8.2)
[2022-11-17 13:10] LABS: Add Manual Diff / Slide Review NO; Basophils Absolute Auto 0 /uL (0-100); Basophils Percent Auto 0.4 % (0-2); Eosinophils Absolute Auto 200 /uL (0-450); Eosinophils Percent Auto 1.8 % (2-4); Hematocrit 38.5 % (41-53); Hemoglobin 13.1 g/dL (13.5-17.5); Lymphocytes Absolute Auto 3800 /uL (1100-4500); Lymphocytes Percent Auto 37.1 % (25-40); Mean Corpuscular Volume 88.4 fL (80-100); Monocytes Absolute Auto 800 /uL (0-900); Monocytes Percent Auto 8.2 % (3-14); Neutrophils Absolute Auto 5300 /uL (1500-7000); Neutrophils Percent Auto 52.5 % (50-75); Platelet Count 172 X10^3/uL (150-400); Red Blood Cell Count 4.35 X10^6/uL (4.5-5.9); Red Cell Distribution Width 14.3 % (11.6-14.8); White Blood Cell Count 10.1 X10^3/uL (4.5-11.0)
[2022-11-17 15:30] LABS: Creatinine Urine Random 79.5 mg/dL
[2022-11-17 15:34] LABS: Microalbumin Urine Random 0.8 mg/dL (0-1.6)
[2022-11-18 09:36] LABS: x Labcorp Estim. Avg Glu (eAG) 137 mg/dL (.); x Labcorp Hemoglobin A1c 6.4 % (4.8-5.6)
== END ==
PROVIDERS: Family Provider Nurse Practitioner; PCP Nurse Practitioner; Referring Provider Nurse Practitioner; Visit Provider Nurse Practitioner
DX: E11.69 Type 2 diabetes mellitus with other specified complication (principal); D64.9 Anemia, unspecified
CPT/HCPCS: 36415; 80053; 82043; 82570; 83036; 85025

== ENCOUNTER 2023-01-29 17:28 | Emergency (ER) | payer OTHER, SELFPAY ==
[2023-01-29 18:00] VITALS: BP 138/85; PULSE 95; RESP 18; TEMP 36.6; O2SAT 93
[2023-01-29 18:01] LABS: Appearance Urine UA CLOUDY; Bilirubin Urine UA NEGATIVE (NEGATIVE); Color Urine UA YELLOW; Glucose Urine UA NEGATIVE (Negative); Ketones Urine UA NEGATIVE (NEGATIVE); Leukocyte Esterase Urine UA 1+ (NEGATIVE); Nitrite Urine UA NEGATIVE (Negative); Occult Blood Urine UA 2+ (Negative); Protein Urine UA 1+ (Negative); Specific Gravity Urine UA 1.025 (1.000-1.035)
[2023-01-29 18:18] LABS: Bacteria Urine Many (>30); Culture Indicated Urine Specimen Cultured; RBC Urine None Seen (0-5/HPF); Squamous Epithelial Cell Urine None Seen (0-5/HPF); WBC Urine 30-100/HPF (0-5/HPF)
--- NOTE | 2023-01-29 18:27 | ED_ITS ---
HPI - Male Genitourinary General Chief complaint: Urogenital-Male Stated complaint: feels like need to eliminate but cant T-2 Time Seen by Provider: 01/29/23 18:02 History of Present Illness HPI Narrative: 82-year-old male former smoker with history of hypertension, hyperlipidemia, diabetes presents with family in the chief complaint of increasing difficulty emptying his bladder for the past few days. He denies any fever or chills. Denies nausea, vomiting or diarrhea. He states he is had chronic problems with constipation that are no worse than normal. He is passing gas without difficulty. He denies fever or chills. Related Data Home Medications Medication Instructions Recorded Confirmed amlodipine 10 mg tablet 10 mg PO DAILY 01/29/23 01/29/23 aspirin 81 mg tablet,delayed 81 mg PO DAILY 01/29/23 01/29/23 release chlorthalidone 25 mg tablet 25 mg PO DAILY 01/29/23 01/29/23 lisinopril 20 mg tablet 20 mg PO DAILY 01/29/23 01/29/23 potassium chloride 20 mEq 20 meq PO DAILY 01/29/23 01/29/23 tablet,extended release(part/cryst) Previous Rx's Medication Instructions Recorded atorvastatin 20 mg tablet (Lipitor) 20 mg PO HS #30 tabs 08/23/16 glipizide 10 mg tablet 10 mg PO BID #60 tabs 09/22/17 metformin 500 mg tablet,extended 1,000 mg PO DAILY #60 tabs 09/22/17 release 24hr Allergies Allergy/AdvReac Type Severity Reaction Status Date / Time Sulfa (Sulfonamide Allergy Intermediate Rash Verified 01/29/23 18:03 Antibiotics) codeine AdvReac Intermediate Hallucinati Verified 01/29/23 18:03 ng ibuprofen [From MOTRIN] AdvReac Mild makes me Verified 01/29/23 18:03 sick Review of Systems Review of Systems Narrative: GENERAL: Denies chills, fatigue, malaise, fever, sweats. HEENT: Denies sinus pain, ear pain, sore throat, difficulty swallowing, dizziness. RESPIRATORY: Denies dyspnea, cough, wheezing, hemoptysis, sputum. CARDIOVASCULAR: Denies chest pain, palpitations, orthopnea, edema, GASTROINTESTINAL: Denies nausea, vomiting, abdominal pain, diarrhea, constipation, melena. : See HPI MUSCULOSKELETAL: denies weakness, joint pain, or bony pain SKIN: Denies rash, skin lesions, or other NEUROLOGIC: Denies weakness, headache, numbness, change in speech, confusion, seizures, incoordination. PSYCHIATRIC: No concerning psychosocial issues. 12 point review of systems is negative except for those stated above Patient History Medical History History of prostatitis History of transient ischemic attack Hypertension Nephrolithiasis Type 2 diabetes mellitus without complications Surgical History H/O hernia repair Social History household members: friend(s) Smoking Status: Former smoker alcohol intake: former additional social history: He quit smoking over 20 years ago. 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 He plans to move to [place] within a couple of days. He denies alcohol use. Smoking Status: Former smoker alcohol intake frequency: 0-2 drinks per day Substance Use Type: does not use Exam Narrative Exam Narrative: GEN: AOx3 and in mild distress EYES: Pupils are equal, round, and reactive to light and accommodation. Extraoccular muscles are intact bilaterally. There is no subconjunctival hemorrhage or exudate. CHEST: Lungs are clear to auscultation bilaterally and free of wheezes, rales, or rhonchi. Heart rate is regular rhythm, there are no murmurs, clicks, rubs, or gallops. There is no chest wall tenderness. ABD: Abdomen is soft and nontender. There is no guarding or rebound. Bowel sounds are normal in all 4 quadrants. There is no mass or organomegaly. EXT: Full painless ROM of all extremities with no loss of sensation or strength. SKIN: Warm, pink, and dry. No erythema or rash Initial Vital Signs Initial Vital Signs: Vital Signs Temperature 98 F 01/29/23 18:00 Pulse Rate 95 H 01/29/23 18:00 Respiratory Rate 18 01/29/23 18:00 Blood Pressure 138/85 01/29/23 18:00 Pulse Oximetry 93 01/29/23 18:00 Oxygen Delivery Method Room Air 01/29/23 18:00 Course Course Course Narrative: Bladder scan notes upwards of 400 mL postvoid residual. Harris catheter is placed and patient experiences in near complete and total resolution of symptoms Orders Ordered: ED Orders 01/29/23 17:50 Urinalysis and Microscopic Stat Urine Culture Stat Discontinued Medications Cephalexin HCl (Cephalexin 250 Mg Capsule) 500 mg PO NOW ONE Stop: 01/29/23 18:28 Last Admin: 01/29/23 18:43 Dose: 500 mg Documented By: CHAPARRO Lidocaine HCl (Lidocaine 2% (Glydo) 6 Ml Gel) 6 ml TOP NOW ONE Stop: 01/29/23 18:19 Last Admin: 01/29/23 18:46 Dose: 6 ml Documented By: CHAPARRO Tamsulosin HCl (Tamsulosin 0.4 Mg Capsule) 0.4 mg PO NOW ONE Stop: 01/29/23 18:19 Last Admin: 01/29/23 18:43 Dose: 0.4 mg Documented By: CHAPARRO Vital Signs Vital signs: Vital Signs - 8 hr 01/29/23 18:00 Temperature 98 F Pulse Rate 95 H Respiratory Rate 18 Blood Pressure 138/85 Pulse Oximetry 93 Oxygen Delivery Method Room Air MDM - Male Genitourinary Lab Data Labs: Lab Results 01/29/23 Range/Units 17:50 Urine Color Yellow Urine Appearance Cloudy Urine pH 6.0 (4.5-8.0) Ur Specific [place] 1.025 (1.000-1.035) Urine Protein 1+ H (Negative) Urine Glucose (UA) Negative (Negative) g/dL Urine Ketones Negative (NEGATIVE) Urine Occult Blood 2+ H (Negative) Urine Nitrate Negative (Negative) Urine Bilirubin Negative (NEGATIVE) Urine Urobilinogen 1.0 (0.2) E.U./dL Ur Leukocyte Esterase 1+ H (NEGATIVE) Urine RBC None seen (0-5/HPF) Urine WBC 30-100/hpf H (0-5/HPF) Ur Squamous Epith Cells None seen (0-5/HPF) Urine Bacteria Many (>30) H (None) Ur Culture Indicated? Specimen cultured MDM Narrative Medical decision making narrative: [82] year old patient presents with inability to urinate Multiple etiologies for patient's symptoms considered including, but not limited to: [Urinary retention versus UTI versus bowel obstruction versus other] Prior Charts reviewed in our EMR Primary Historian: patient Labs reviewed and interpreted by myself: Urine quite convincing for infectious process Imaging reviewed: Bladder scan notes retention Patient's symptoms improved over duration of stay with above-stated therapies. Findings and discharge diagnosis discussed with patient/family followed by verbalization of understanding Return precautions discussed with patient/family whom verbalize understanding of diagnosis and plan Discharge Plan Departure Patient Disposition: Home Clinical Impression: Acute UTI, Acute urinary retention Instructions: DI for Urinary Tract Infection (UTI), DI for Urinary Retention in Men Activity Restrictions/Additional Instructions: *You have been diagnosed with [urinary retention and acute urinary tract infection] *What to do: *Please continue to take your regular medications as directed. [ x] New medication prescriptions sent to your pharmacy: [ [facility]] [ ] New medication written as a paper prescription [ ] No new medications given *Please follow up with your primary care provider in 2-3 days, call for an appointment. Let them know you were seen in the Emergency Department and that we ask that you be seen in follow up. We will electronically transmit a record of today's note if your PCP is in our system *If you do not have a primary care provider please contact the [facility] Resource line at [phone]. They will ask some questions about your medical history and help get you set up with a doctor in the community. *Return to Emergency Department if you should have any new, worsening or concerning symptoms, such as [fever greater than 101 F, shaking chills, worsening pain, persistent vomiting or other bothersome symptoms] Prescriptions: No Action atorvastatin [Lipitor] 20 MG tablet 20 mg PO HS Qty: 30 9RF glipizide 10 mg tablet 10 mg PO BID Qty: 60 0RF metformin 500 mg tablet extended release 24hr 1,000 mg PO DAILY Qty: 60 0RF Rx Instructions: administer with evening meal lisinopril 20 mg tablet 20 mg PO DAILY chlorthalidone 25 mg tablet 25 mg PO DAILY aspirin 81 mg tablet,delayed release (DR/EC) 81 mg PO DAILY potassium chloride 20 mEq tablet,ER particles/crystals 20 meq PO DAILY amlodipine 10 mg tablet 10 mg PO DAILY Referrals: Yvonne Mosley ARNP [Primary Care Provider] - Stand Alone Forms: Patient Portal/API
[2023-01-29] MEDS: cephALEXin 250 MG CAPSULE 500 MG PO (18:43)
[2023-01-29] MEDS: TAMSULOSIN 0.4 MG CAPSULE PO (18:43)
[2023-01-29] MEDS: LIDOCAINE 2% (GLYDO) 6 ML GEL TOP (18:46)
== END 2023-01-29 20:16 | disposition home or self-care (01) ==
PROVIDERS: Emergency Medicine; Emergency Provider Emergency Medicine; Family Provider Nurse Practitioner; PCP Nurse Practitioner
DX: N39.0 Urinary tract infection, site not specified (principal); R33.8 Other retention of urine
CPT/HCPCS: 51798; 81001; 87077; 87086; 87186; 99284

== ENCOUNTER 2023-01-31 16:34 | Inpatient (IN) | payer OTHER, SELFPAY ==
[2023-01-31] VITALS (14 sets, daily range): BP systolic 141–176; BP diastolic 69–121; PULSE 79–90; RESP 16–41; TEMP 36.8; O2SAT 91–100; BMI 28.7
--- NOTE | 2023-01-31 16:47 | DI.RAD.S_ITS ---
PROCEDURE: XR CHEST 1V INDICATIONS: sepsis/ams TECHNIQUE: One view of the chest was acquired. COMPARISON: [facility], , CHEST 1 VIEW, 02/18/2017, 18:24. [facility], , XR CHEST 1V, 02/14/2022, 12:26. FINDINGS: Surgical changes and devices: None. Lungs and pleura: Lungs are clear. No pleural effusions or pneumothorax. Mediastinum: The cardiac contours are within normal limits. The aorta demonstrates calcification and tortuosity. Bones and chest wall: Age-appropriate bony degenerative changes are seen. No suspicious bony lesions. Overlying soft tissues appear unremarkable. IMPRESSION: Portable chest within normal limits for age. Dictated by: Jun Siddiqui M.D. on 01/31/2023 at 16:10 Approved by: Jun Siddiqui M.D. on 01/31/2023 at 16:10
--- NOTE | 2023-01-31 16:57 | ED.SEPSIS ---
HPI - Sepsis <Bernadette Cornell MD - Last Filed: 02/01/23 07:54> General Chief Complaint: Urogenital-Male Mode of arrival: EMS Source: patient and EMS Limitations: no limitations Evaluation Sepsis Screen: No Definite Risk Sepsis Infection Criteria Present: None Narrative: 82-year-old male presents by EMS from his family's home for altered mental status and generalized weakness. Patient was seen in the emergency department 2 days prior, he was diagnosed with urinary retention and UTI. A Harris was placed and he was discharged with antibiotics. Record review shows that antibiotics were never picked up from pharmacy. Per EMS the patient appeared to be lethargic and ?out of it?, prompting family to call 911. On arrival patient is oriented to self, he is aware that he is in the hospital, however he thinks that it is the year 1980 and that ?ian Ochoa is the president Review of Systems <Bernadette Cornell MD - Last Filed: 02/01/23 07:54> Review of Systems ROS Unobtainable: Other (ALTERED MENTAL STATUS) Patient History <Bernadette Cornell MD - Last Filed: 02/01/23 07:54> Medical History (Updated 01/31/23 @ 20:26 by Sahil Riojas MD) History of prostatitis History of transient ischemic attack Hypertension Nephrolithiasis Type 2 diabetes mellitus without complications Surgical History H/O hernia repair Social History household members: friend(s) Smoking Status: Former smoker alcohol intake: former additional social history: He quit smoking over 20 years ago. 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 He plans to move to [place] within a couple of days. He denies alcohol use. Smoking Status: Former smoker alcohol intake frequency: 0-2 drinks per day Substance Use Type: does not use Exam <Bernadette Cornell MD - Last Filed: 02/01/23 07:54> Initial Vital Signs Initial Vital Signs: Vital Signs Temperature 98.2 F 01/31/23 16:35 Pulse Rate 80 01/31/23 16:35 Respiratory Rate 22 01/31/23 16:35 Blood Pressure 158/79 H 01/31/23 16:35 Pulse Oximetry 100 01/31/23 16:35 Oxygen Delivery Method Room Air 01/31/23 16:35 Const: Awake, alert, no acute distress, frail, appears chronically unwell Eyes: PERRL, EOMI, conjunctiva normal ENT: Atraumatic, dentition normal, mucous membranes moist Cardiac: regular rate, regular rhythm RESP: unlabored, clear bilaterally, no wheezing GI: Atraumatic, soft, nontender, nondistended, no rebound, no guarding : Harris in place MSK: Atraumatic, full range of motion, pulses equal Skin: Warm, Dry, intact, no rashes Neuro: AO x1, CN II-XII grossly intact, moves all extremities Psych: affect normal, mood normal, not suicidal, not homicidal <Andi Ramirez DO - Last Filed: 01/31/23 20:10> Initial Vital Signs Initial Vital Signs: Vital Signs Temperature 98.2 F 01/31/23 16:35 Pulse Rate 80 01/31/23 16:35 Respiratory Rate 22 01/31/23 16:35 Blood Pressure 158/79 H 01/31/23 16:35 Pulse Oximetry 100 01/31/23 16:35 Oxygen Delivery Method Room Air 01/31/23 16:35 Course <Bernadette Cornell MD - Last Filed: 02/01/23 07:54> Course Course Narrative: Ill-appearing but nontoxic patient presenting for generalized weakness, known to have a urinary tract infection. Vital signs are stable, however EMS notes that family is concerned that the patient's mental status has declined. We will draw blood cultures and will order empiric Rocephin. Orders Ordered: Acetaminophen (Acetaminophen 325 Mg Tablet) 650 mg PO Q6H PRN PRN Reason: Fever/Mild Pain (1-3) Amlodipine Besylate (Amlodipine 5 Mg Tablet) 10 mg PO DAILY [facility] Aspirin (Aspirin Ec 81 Mg Tablet) 81 mg PO DAILY [facility] Atorvastatin Calcium (Atorvastatin 20 Mg Tablet) 20 mg PO BEDTIME [facility] Last Admin: 01/31/23 23:06 Dose: 20 mg Documented By: RICHARDSON Chlorthalidone (Chlorthalidone 25 Mg Tablet) 25 mg PO DAILY [facility] Enoxaparin Sodium (Enoxaparin 30 Mg/0.3 Ml Syringe) 30 mg SUBCUT DAILY [facility] Ceftriaxone Sodium 1,000 mg/ (Sodium Chloride) 100 mls @ 200 mls/hr IV Q24H DHARMESH Last Admin: 01/31/23 21:40 Dose: 200 mls/hr Documented By: RICHARDSON Metformin HCl (Metformin Xr 500 Mg Tablet) 1,000 mg PO DAILY [facility] Naloxone HCl (Naloxone 0.4 Mg/Ml Vial) 0.2 mg IV Q2MIN PRN PRN Reason: Opiate Reversal Ondansetron HCl (Ondansetron 4 Mg Odt) 4 mg PO Q8HR PRN PRN Reason: Nausea And Vomiting Potassium Chloride (Potassium Chloride 20 Meq Tab) 20 meq PO DAILY [facility] Sennosides (Sennosides 8.6 Mg Tablet) 17.2 mg PO BEDTIME PRN PRN Reason: constipation Tamsulosin HCl (Tamsulosin 0.4 Mg Capsule) 0.4 mg PO DAILY [facility]ARM[facility] Discontinued Medications Ceftriaxone Sodium 2,000 mg/ (Sodium Chloride) 100 mls @ 200 mls/hr IV NOW ONE Stop: 01/31/23 16:48 Last Infusion: 01/31/23 18:06 Dose: 0 mls/hr Documented By: Admin: 01/31/23 17:14 Dose: 200 mls/hr Documented By: SAKSHI Sodium Chloride (Normal Saline 0.9%) 2,721.54 mls @ 907.18 mls/hr 30 ml/kg infuse over 3 hr (2721.54 ml) IV NOW ONE Stop: 01/31/23 19:46 Last Infusion: 01/31/23 20:32 Dose: 0 mls/hr Documented By: Infusion: 01/31/23 18:06 Dose: 0 mls/hr Documented By: Admin: 01/31/23 17:15 Dose: 907.18 mls/hr Documented By: SAKSHI POTASSIUM CHLORIDE IN WATER (Potassium Cl 10 Meq/100 Ml Melvina) 10 meq in 100 mls @ 100 mls/hr IV Q1H DHARMESH Stop: 01/31/23 23:29 Last Infusion: 02/01/23 01:03 Dose: 100 mls/hr Documented By: Admin: 02/01/23 00:04 Dose: 100 mls/hr Documented By: Infusion: 01/31/23 23:00 Dose: 100 mls/hr Documented By: Admin: 01/31/23 22:00 Dose: 100 mls/hr Documented By: Infusion: 01/31/23 22:00 Dose: 100 mls/hr Documented By: Admin: 01/31/23 21:23 Dose: 100 mls/hr Documented By: Infusion: 01/31/23 20:37 Dose: 0 mls/hr Documented By: Admin: 01/31/23 19:36 Dose: 100 mls/hr Documented By: TOR Reevaluation(s) Reevaluation #1: Laboratory work is reviewed, there is increased WBCs, however kidney function is normal. Cultures reviewed from previous visit. Patient has pansensitive Klebsiella. 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 Nephew states that patient's baseline mental status is confused, but able to hold a conversation. Today he is noticeably worse than his baseline and much more confused. Social work contacted to evaluate the patient and family for possible home health care options. Call placed for admission, however hospitalist requested CT of the abdomen and pelvis to assess for stones or obstruction prior to accepting admission. CT shows emphysematous cystitis. Question of strangulation of umbilical hernia, however abdomen soft, no tenderness, no erythema to suggest acute complication of hernia. Admitted for further treatment. Vital Signs Vital signs: Vital Signs - 8 hr 01/31/23 16:35 01/31/23 16:39 01/31/23 16:39 Temperature 98.2 F Pulse Rate 80 79 Respiratory Rate 22 Blood Pressure 158/79 H 158/76 H Pulse Oximetry 100 99 Oxygen Delivery Method Room Air 01/31/23 17:00 01/31/23 17:02 01/31/23 17:02 Temperature Pulse Rate 88 84 Respiratory Rate 41 H 33 H Blood Pressure 141/69 H Pulse Oximetry 95 91 Oxygen Delivery Method 01/31/23 17:30 01/31/23 17:31 01/31/23 17:31 Temperature Pulse Rate 80 90 Respiratory Rate 16 31 H Blood Pressure 170/83 H Pulse Oximetry 95 94 Oxygen Delivery Method 01/31/23 18:00 01/31/23 18:00 01/31/23 18:30 Temperature Pulse Rate 82 83 Respiratory Rate 18 30 H Blood Pressure 170/82 H Pulse Oximetry 98 99 Oxygen Delivery Method 01/31/23 18:54 01/31/23 18:54 01/31/23 19:00 Temperature Pulse Rate 84 Respiratory Rate 38 H Blood Pressure 141/76 H 149/78 H Pulse Oximetry 98 Oxygen Delivery Method 01/31/23 19:00 Temperature Pulse Rate 84 Respiratory Rate 19 Blood Pressure Pulse Oximetry 96 Oxygen Delivery Method <Andi Ramirez, DO - Last Filed: 01/31/23 20:10> Orders Ordered: Acetaminophen (Acetaminophen 325 Mg Tablet) 650 mg PO Q6H PRN PRN Reason: Fever/Mild Pain (1-3) Amlodipine Besylate (Amlodipine 5 Mg Tablet) 10 mg PO DAILY [facility] Aspirin (Aspirin Ec 81 Mg Tablet) 81 mg PO DAILY [facility] Atorvastatin Calcium (Atorvastatin 20 Mg Tablet) 20 mg PO BEDTIME [facility] Last Admin: 01/31/23 23:06 Dose: 20 mg Documented By: RICHARDSON Chlorthalidone (Chlorthalidone 25 Mg Tablet) 25 mg PO DAILY [facility] Enoxaparin Sodium (Enoxaparin 30 Mg/0.3 Ml Syringe) 30 mg SUBCUT DAILY [facility] Ceftriaxone Sodium 1,000 mg/ (Sodium Chloride) 100 mls @ 200 mls/hr IV Q24H [facility] Last Admin: 01/31/23 21:40 Dose: 200 mls/hr Documented By: RICHARDSON Metformin HCl (Metformin Xr 500 Mg Tablet) 1,000 mg PO DAILY [facility] Naloxone HCl (Naloxone 0.4 Mg/Ml Vial) 0.2 mg IV Q2MIN PRN PRN Reason: Opiate Reversal Ondansetron HCl (Ondansetron 4 Mg Odt) 4 mg PO Q8HR PRN PRN Reason: Nausea And Vomiting Potassium Chloride (Potassium Chloride 20 Meq Tab) 20 meq PO DAILY [facility] Sennosides (Sennosides 8.6 Mg Tablet) 17.2 mg PO BEDTIME PRN PRN Reason: constipation Tamsulosin HCl (Tamsulosin 0.4 Mg Capsule) 0.4 mg PO DAILY [facility] Discontinued Medications Ceftriaxone Sodium 2,000 mg/ (Sodium Chloride) 100 mls @ 200 mls/hr IV NOW ONE Stop: 01/31/23 16:48 Last Infusion: 01/31/23 18:06 Dose: 0 mls/hr Documented By: Admin: 01/31/23 17:14 Dose: 200 mls/hr Documented By: SAKSHI Sodium Chloride (Normal Saline 0.9%) 2,721.54 mls @ 907.18 mls/hr 30 ml/kg infuse over 3 hr (2721.54 ml) IV NOW ONE Stop: 01/31/23 19:46 Last Infusion: 01/31/23 20:32 Dose: 0 mls/hr Documented By: Infusion: 01/31/23 18:06 Dose: 0 mls/hr Documented By: Admin: 01/31/23 17:15 Dose: 907.18 mls/hr Documented By: SAKSHI POTASSIUM CHLORIDE IN WATER (Potassium Cl 10 Meq/100 Ml Melvina) 10 meq in 100 mls @ 100 mls/hr IV Q1H DHARM[facility] Stop: 01/31/23 23:29 Last Infusion: 02/01/23 01:03 Dose: 100 mls/hr Documented By: Admin: 02/01/23 00:04 Dose: 100 mls/hr Documented By: Infusion: 01/31/23 23:00 Dose: 100 mls/hr Documented By: Admin: 01/31/23 22:00 Dose: 100 mls/hr Documented By: Infusion: 01/31/23 22:00 Dose: 100 mls/hr Documented By: Admin: 01/31/23 21:23 Dose: 100 mls/hr Documented By: Infusion: 01/31/23 20:37 Dose: 0 mls/hr Documented By: Admin: 01/31/23 19:36 Dose: 100 mls/hr Documented By: TOR Reevaluation(s) Reevaluation #1: Laboratory work is reviewed, there is increased WBCs, however kidney function is normal. Cultures reviewed from previous visit. Patient has pansensitive Klebsiella. 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 Nephew states that patient's baseline mental status is confused, but able to hold a conversation. Today he is noticeably worse than his baseline and much more confused. Social work contacted to evaluate the patient and family for possible home health care options. Call placed for admission, however hospitalist requested CT of the abdomen and pelvis to assess for stones or obstruction prior to accepting admission. 1830: Care of patient transferred to Dr. Ramirez Vital Signs Vital signs: Vital Signs - 8 hr 01/31/23 16:35 01/31/23 16:39 01/31/23 16:39 Temperature 98.2 F Pulse Rate 80 79 Respiratory Rate 22 Blood Pressure 158/79 H 158/76 H Pulse Oximetry 100 99 Oxygen Delivery Method Room Air 01/31/23 17:00 01/31/23 17:02 01/31/23 17:02 Temperature Pulse Rate 88 84 Respiratory Rate 41 H 33 H Blood Pressure 141/69 H Pulse Oximetry 95 91 Oxygen Delivery Method 01/31/23 17:30 01/31/23 17:31 01/31/23 17:31 Temperature Pulse Rate 80 90 Respiratory Rate 16 31 H Blood Pressure 170/83 H Pulse Oximetry 95 94 Oxygen Delivery Method 01/31/23 18:00 01/31/23 18:00 01/31/23 18:30 Temperature Pulse Rate 82 83 Respiratory Rate 18 30 H Blood Pressure 170/82 H Pulse Oximetry 98 99 Oxygen Delivery Method 01/31/23 18:54 01/31/23 18:54 01/31/23 19:00 Temperature Pulse Rate 84 Respiratory Rate 38 H Blood Pressure 141/76 H 149/78 H Pulse Oximetry 98 Oxygen Delivery Method 01/31/23 19:00 Temperature Pulse Rate 84 Respiratory Rate 19 Blood Pressure Pulse Oximetry 96 Oxygen Delivery Method Sepsis Evaluation (ED) <Bernadette Cornell MD - Last Filed: 02/01/23 07:54> Triage Screening Sepsis Screen: No Definite Risk Level 1 - Infection Sepsis Infection Criteria Present: None <Andi Ramirez DO - Last Filed: 01/31/23 20:10> Response It is my opinion that his patient have a likely infectious etiology for meeting sepsis criteria: Does Fluid calculation based on 30 mL/kg within 1hr of criteria: N/A Antibiotics initiated within 1 hr of Sepis dx: Yes Tissue Perfusion Reassessed within 6 hrs of infusion start time: No MDM - Sepsis <Bernadette Cornell MD - Last Filed: 02/01/23 07:54> Lab Data 01/31/23 16:49 01/31/23 16:49 Labs: Lab Results 01/31/23 01/31/23 01/31/23 Range/Units 16:46 16:49 16:49 WBC 14.6 H (4.5-11.0) X10^3/uL RBC 4.56 (4.5-5.9) X10^6/uL Hgb 13.5 (13.5-17.5) g/dL Hct 39.5 L (41-53) % MCV 86.6 (80-100) fL MCH 29.6 (26-34) PG MCHC 34.2 (30-36) % RDW 14.4 (11.6-14.8) % Plt Count 162 (150-400) X10^3/uL Neut % (Auto) 77.3 H (50-75) % Lymph % (Auto) 7.8 L (25-40) % Bucks % (Auto) 14.6 H (3-14) % Eos % (Auto) 0.1 L (2-4) % Baso % (Auto) 0.2 (0-2) % Neut # (Auto) 29585 H (8074-4603) /uL Lymph # (Auto) 1100 (6286-0700) /uL Bucks # (Auto) 2100 H (0-900) /uL Eos # (Auto) 0 (0-450) /uL Baso # (Auto) 0 (0-100) /uL PT 13.0 H (10.1-12.7) SECONDS INR 1.1 (0.9-1.3) APTT (26-36) SECONDS Sodium (137-145) mmol/L Potassium (3.4-5.1) mmol/L Chloride (98-107) mmol/L Carbon Dioxide (22-32) mmol/L BUN (9-20) mg/dL Creatinine (0.66-1.25) mg/dL Estimated GFR (>60) mL/min BUN/Creatinine Ratio (6-22) Glucose (80-110) mg/dL Lactate (0.7-2.1) mmol/L Calcium (8.4-10.2) mg/dL Total Bilirubin (0.2-1.3) mg/dL AST (17-59) IU/L ALT (<50) IU/L Alkaline Phosphatase (38-126) U/L Total Creatine Kinase (55-170) U/L Troponin I (0.01-0.034) ng/mL Total Protein (6.3-8.2) g/dL Albumin (3.5-5.0) g/dL Globulin (1.7-4.1) g/dL Albumin/Globulin Ratio (1.0-2.8) Urine Color Yellow Urine Appearance Clear Urine pH 5.5 (4.5-8.0) Ur Specific [place] 1.015 (1.000-1.035) Urine Protein 1+ H (Negative) Urine Glucose (UA) Negative (Negative) g/dL Urine Ketones Trace H (NEGATIVE) Urine Occult Blood 3+ H (Negative) Urine Nitrate Negative (Negative) Urine Bilirubin Negative (NEGATIVE) Urine Urobilinogen 1.0 (0.2) E.U./dL Ur Leukocyte Esterase 1+ H (NEGATIVE) Urine RBC 30-100/hpf H (0-5/HPF) Urine WBC 10-30/hpf H (0-5/HPF) Ur Squamous Epith Cells 0-1 /hpf (0-5/HPF) Urine Bacteria Moderate (10-30) H (None) Ur Culture Indicated? Specimen cultured Micro UA Comment 01/31/23 01/31/23 01/31/23 Range/Units 16:49 16:49 16:49 WBC (4.5-11.0) X10^3/uL RBC (4.5-5.9) X10^6/uL Hgb (13.5-17.5) g/dL Hct (41-53) % MCV (80-100) fL MCH (26-34) PG MCHC (30-36) % RDW (11.6-14.8) % Plt Count (150-400) X10^3/uL Neut % (Auto) (50-75) % Lymph % (Auto) (25-40) % Bucks % (Auto) (3-14) % Eos % (Auto) (2-4) % Baso % (Auto) (0-2) % Neut # (Auto) (0598-8355) /uL Lymph # (Auto) (4338-6201) /uL Bucks # (Auto) (0-900) /uL Eos # (Auto) (0-450) /uL Baso # (Auto) (0-100) /uL PT (10.1-12.7) SECONDS INR (0.9-1.3) APTT 24 L (26-36) SECONDS Sodium 132 L (137-145) mmol/L Potassium 3.0 L (3.4-5.1) mmol/L Chloride 93 L (98-107) mmol/L Carbon Dioxide 30 (22-32) mmol/L BUN 45 H (9-20) mg/dL Creatinine 1.15 (0.66-1.25) mg/dL Estimated GFR > 60 (>60) mL/min BUN/Creatinine Ratio 39.1 H (6-22) Glucose 148 H (80-110) mg/dL Lactate 1.8 (0.7-2.1) mmol/L Calcium 12.3 H (8.4-10.2) mg/dL Total Bilirubin 1.1 (0.2-1.3) mg/dL AST 32 (17-59) IU/L ALT 26 (<50) IU/L Alkaline Phosphatase 96 (38-126) U/L Total Creatine Kinase 52 L (55-170) U/L Troponin I < 0.012 (0.01-0.034) ng/mL Total Protein 7.9 (6.3-8.2) g/dL Albumin 4.0 (3.5-5.0) g/dL Globulin 3.9 (1.7-4.1) g/dL Albumin/Globulin Ratio 1.0 (1.0-2.8) Urine Color Urine Appearance Urine pH (4.5-8.0) Ur Specific [place] (1.000-1.035) Urine Protein (Negative) Urine Glucose (UA) (Negative) g/dL Urine Ketones (NEGATIVE) Urine Occult Blood (Negative) Urine Nitrate (Negative) Urine Bilirubin (NEGATIVE) Urine Urobilinogen (0.2) E.U./dL Ur Leukocyte Esterase (NEGATIVE) Urine RBC (0-5/HPF) Urine WBC (0-5/HPF) Ur Squamous Epith Cells (0-5/HPF) Urine Bacteria (None) Ur Culture Indicated? Micro UA Comment Point of Care Testing Glucose POC 148 <Andi Ramirez, DO - Last Filed: 01/31/23 20:10> Lab Data Labs: Lab Results 01/31/23 01/31/23 01/31/23 Range/Units 16:46 16:49 16:49 WBC 14.6 H (4.5-11.0) X10^3/uL RBC 4.56 (4.5-5.9) X10^6/uL Hgb 13.5 (13.5-17.5) g/dL Hct 39.5 L (41-53) % MCV 86.6 (80-100) fL MCH 29.6 (26-34) PG MCHC 34.2 (30-36) % RDW 14.4 (11.6-14.8) % Plt Count 162 (150-400) X10^3/uL Neut % (Auto) 77.3 H (50-75) % Lymph % (Auto) 7.8 L (25-40) % Bucks % (Auto) 14.6 H (3-14) % Eos % (Auto) 0.1 L (2-4) % Baso % (Auto) 0.2 (0-2) % Neut # (Auto) 52468 H (2800-1839) /uL Lymph # (Auto) 1100 (1250-7525) /uL Bucks # (Auto) 2100 H (0-900) /uL Eos # (Auto) 0 (0-450) /uL Baso # (Auto) 0 (0-100) /uL PT 13.0 H (10.1-12.7) SECONDS INR 1.1 (0.9-1.3) APTT (26-36) SECONDS Sodium (137-145) mmol/L Potassium (3.4-5.1) mmol/L Chloride (98-107) mmol/L Carbon Dioxide (22-32) mmol/L BUN (9-20) mg/dL Creatinine (0.66-1.25) mg/dL Estimated GFR (>60) mL/min BUN/Creatinine Ratio (6-22) Glucose (80-110) mg/dL Lactate (0.7-2.1) mmol/L Calcium (8.4-10.2) mg/dL Total Bilirubin (0.2-1.3) mg/dL AST (17-59) IU/L ALT (<50) IU/L Alkaline Phosphatase (38-126) U/L Total Creatine Kinase (55-170) U/L Troponin I (0.01-0.034) ng/mL Total Protein (6.3-8.2) g/dL Albumin (3.5-5.0) g/dL Globulin (1.7-4.1) g/dL Albumin/Globulin Ratio (1.0-2.8) Urine Color Yellow Urine Appearance Clear Urine pH 5.5 (4.5-8.0) Ur Specific [place] 1.015 (1.000-1.035) Urine Protein 1+ H (Negative) Urine Glucose (UA) Negative (Negative) g/dL Urine Ketones Trace H (NEGATIVE) Urine Occult Blood 3+ H (Negative) Urine Nitrate Negative (Negative) Urine Bilirubin Negative (NEGATIVE) Urine Urobilinogen 1.0 (0.2) E.U./dL Ur Leukocyte Esterase 1+ H (NEGATIVE) Urine RBC 30-100/hpf H (0-5/HPF) Urine WBC 10-30/hpf H (0-5/HPF) Ur Squamous Epith Cells 0-1 /hpf (0-5/HPF) Urine Bacteria Moderate (10-30) H (None) Ur Culture Indicated? Specimen cultured Micro UA Comment 01/31/23 01/31/23 01/31/23 Range/Units 16:49 16:49 16:49 WBC (4.5-11.0) X10^3/uL RBC (4.5-5.9) X10^6/uL Hgb (13.5-17.5) g/dL Hct (41-53) % MCV (80-100) fL MCH (26-34) PG MCHC (30-36) % RDW (11.6-14.8) % Plt Count (150-400) X10^3/uL Neut % (Auto) (50-75) % Lymph % (Auto) (25-40) % Bucks % (Auto) (3-14) % Eos % (Auto) (2-4) % Baso % (Auto) (0-2) % Neut # (Auto) (3160-9899) /uL Lymph # (Auto) (5444-3874) /uL Bucks # (Auto) (0-900) /uL Eos # (Auto) (0-450) /uL Baso # (Auto) (0-100) /uL PT (10.1-12.7) SECONDS INR (0.9-1.3) APTT 24 L (26-36) SECONDS Sodium 132 L (137-145) mmol/L Potassium 3.0 L (3.4-5.1) mmol/L Chloride 93 L (98-107) mmol/L Carbon Dioxide 30 (22-32) mmol/L BUN 45 H (9-20) mg/dL Creatinine 1.15 (0.66-1.25) mg/dL Estimated GFR > 60 (>60) mL/min BUN/Creatinine Ratio 39.1 H (6-22) Glucose 148 H (80-110) mg/dL Lactate 1.8 (0.7-2.1) mmol/L Calcium 12.3 H (8.4-10.2) mg/dL Total Bilirubin 1.1 (0.2-1.3) mg/dL AST 32 (17-59) IU/L ALT 26 (<50) IU/L Alkaline Phosphatase 96 (38-126) U/L Total Creatine Kinase 52 L (55-170) U/L Troponin I < 0.012 (0.01-0.034) ng/mL Total Protein 7.9 (6.3-8.2) g/dL Albumin 4.0 (3.5-5.0) g/dL Globulin 3.9 (1.7-4.1) g/dL Albumin/Globulin Ratio 1.0 (1.0-2.8) Urine Color Urine Appearance Urine pH (4.5-8.0) Ur Specific [place] (1.000-1.035) Urine Protein (Negative) Urine Glucose (UA) (Negative) g/dL Urine Ketones (NEGATIVE) Urine Occult Blood (Negative) Urine Nitrate (Negative) Urine Bilirubin (NEGATIVE) Urine Urobilinogen (0.2) E.U./dL Ur Leukocyte Esterase (NEGATIVE) Urine RBC (0-5/HPF) Urine WBC (0-5/HPF) Ur Squamous Epith Cells (0-5/HPF) Urine Bacteria (None) Ur Culture Indicated? Micro UA Comment Point of Care Testing Glucose POC 148 MDM Narrative Medical decision making narrative: [[id number]] (James) Patient received in sign out from [Kraig]. I have reviewed the clinical course and performed an independent history and physical exam. Currently pending CT of the abdomen and pelvis at the request of the daytime hospitalist 1899 -CT without any obstructive uropathy or significant abnormality. Patient requires hospitalization due to metabolic encephalopathy, UTI, unable to care for himself secondary to his underlying infection. Will require IV antibiotics, fluids. Dr. Juarez (Hospitalist) happy to accept on his service Discharge Plan Departure Patient Disposition: Admitted As Inpatient Clinical Impression: Urinary tract infection, Generalized weakness, Altered mental status, Acute hypokalemia Admit Date/Time: 01/31/23 19:45 Admit Provider: Sahil Riojas
[2023-01-31 17:01] LABS: Add Manual Diff / Slide Review NO; Basophils Absolute Auto 0 /uL (0-100); Basophils Percent Auto 0.2 % (0-2); Eosinophils Absolute Auto 0 /uL (0-450); Eosinophils Percent Auto 0.1 % (2-4); Hematocrit 39.5 % (41-53); Hemoglobin 13.5 g/dL (13.5-17.5); Lymphocytes Absolute Auto 1100 /uL (1100-4500); Lymphocytes Percent Auto 7.8 % (25-40); Mean Corpuscular HGB Conc 34.2 % (30-36); Mean Corpuscular Hemoglobin 29.6 PG (26-34); Mean Corpuscular Volume 86.6 fL (80-100); Monocytes Absolute Auto 2100 /uL (0-900); Monocytes Percent Auto 14.6 % (3-14); Neutrophils Absolute Auto 11300 /uL (1500-7000); Neutrophils Percent Auto 77.3 % (50-75); Platelet Count 162 X10^3/uL (150-400); Red Blood Cell Count 4.56 X10^6/uL (4.5-5.9); Red Cell Distribution Width 14.4 % (11.6-14.8); White Blood Cell Count 14.6 X10^3/uL (4.5-11.0)
[2023-01-31] MEDS: cefTRIAXone 2,000 MG in SODIUM CHLORIDE 0.9% 100 ML 200 MG IV (17:14)
[2023-01-31] MEDS: SODIUM CHLORIDE 0.9% 2,721.54 ML 907.18 ML IV (17:15)
[2023-01-31 17:17] LABS: Lactate (Lactic Acid) 1.8 mmol/L (0.7-2.1)
[2023-01-31 17:19] LABS: Alanine Aminotransferase 26 IU/L (<50); Alkaline Phosphatase 96 U/L (38-126); Aspartate Aminotransferase 32 IU/L (17-59); BUN Creatinine Ratio 39.1 (6-22); Bilirubin Total 1.1 mg/dL (0.2-1.3); Blood Urea Nitrogen 45 mg/dL (9-20); Calcium 12.3 mg/dL (8.4-10.2); Carbon Dioxide 30 mmol/L (22-32); Chloride 93 mmol/L (98-107); Creatine Kinase 52 U/L (55-170); Estimated Glomerular Filt Rate > 60 mL/min (>60); Globulin 3.9 g/dL (1.7-4.1); Glucose 148 mg/dL (80-110); HEMOLYSIS 24 (0-50); INR 1.1 (0.9-1.3); Sodium 132 mmol/L (137-145); Total Protein 7.9 g/dL (6.3-8.2)
[2023-01-31 17:27] LABS: PTT Partial Thromboplastin Tim 24 SECONDS (26-36)
[2023-01-31 17:30] LABS: Troponin I < 0.012 ng/mL (0.01-0.034)
--- NOTE | 2023-01-31 17:55 | DI.CT.S_ITS ---
PROCEDURE: CT ABDOMEN PELVIS W CON INDICATIONS: URINARY RETENTION TECHNIQUE: After the administration of intravenous contrast, axial sections acquired from the lung bases to the pubic symphysis. Coronal and sagittal reformats were performed. For radiation dose reduction, the following was used: automated exposure control, adjustment of mA and/or kV according to patient size. COMPARISON: None. FINDINGS: Image quality: Excellent. Lung bases: Unremarkable. Heart: No significant findings. ABDOMEN: Liver: Unremarkable. Gallbladder: Unremarkable. Biliary ducts: Unremarkable. Pancreas: Unremarkable. Spleen: Unremarkable. Adrenal Glands: Unremarkable. Kidneys and Ureters: Unremarkable. Stomach and Bowel: Stomach, small bowel loops, and colon are unremarkable. Appendix is normal. Peritoneum: No abnormal intraperitoneal fluid. No free air. Ventral Wall: There is a fat containing umbilical hernia measuring 45 mm with internal fat stranding. Abdominal Nodes: No retroperitoneal or mesenteric adenopathy by size criteria. Vessels: Aorta and inferior vena cava are normal in size. PELVIS: Pelvic Organs: Unremarkable. Bladder: A Harris catheter is present. Urinary bladder is moderately thickened. There is gas within or adjacent to the right urinary bladder wall which could indicate emphysematous cystitis. Prostate is enlarged. Pelvic Nodes: No enlarged lymph nodes. Miscellaneous: No hernias are seen. Bones: Unremarkable. IMPRESSION: 1. Possible emphysematous cystitis. 2. Fat containing umbilical hernia with internal fat stranding, possibly indicating strangulation. 3. Normal appendix. Dictated by: Emily Walden M.D. on 01/31/2023 at 18:28 Approved by: Emily Walden M.D. on 01/31/2023 at 18:30
[2023-01-31 18:22] LABS: Appearance Urine UA CLEAR; Bilirubin Urine UA NEGATIVE (NEGATIVE); Color Urine UA YELLOW; Glucose Urine UA NEGATIVE (Negative); Ketones Urine UA TRACE (NEGATIVE); Leukocyte Esterase Urine UA 1+ (NEGATIVE); Nitrite Urine UA NEGATIVE (Negative); Occult Blood Urine UA 3+ (Negative); Protein Urine UA 1+ (Negative); Specific Gravity Urine UA 1.015 (1.000-1.035); pH Urine UA 5.5 (4.5-8.0)
[2023-01-31 18:35] LABS: Bacteria Urine Moderate (10-30); RBC Urine 30-100/HPF (0-5/HPF); Squamous Epithelial Cell Urine 0-1 /HPF (0-5/HPF); WBC Urine 10-30/HPF (0-5/HPF)
[2023-01-31 18:36] LABS: Culture Indicated Urine Specimen Cultured
--- NOTE | 2023-01-31 19:01 | CM.SWNOTE ---
ED STRIP STAMP STRAIGHTENER Note STRIP STAMP STRAIGHTENER receives consult due to family's concern for patient's AMS and patient's need for senior service resources. Patient is 82 y/o male who presents to ED due to concern for UTI, increased weakness and altered mental status. Patient was seen in ED on 01/29/23 and was diagnosed with UTI and urinary retention, patient was discharged with avalos and antibiotics. There is concern that patient never picked up antibiotics. Patient's PCP is SIXTO Kim with [facility], Patient has [employer] Medicare Advantage and Medicare insurance. Patient has hx of Type 2 Diabetes mellitus, [place], hx of CVA, Anemia and essential hypertension. It is reported by patient and nephew that patient also has dyslexia. STRIP STAMP STRAIGHTENER enters room to meet with patient and nephew. It is reported that patient moved in with nephew a year ago from [place]. Nephew reports that this is supposed to be a temporary living situation and patient has not been able to identify a new place to live. 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 Patient presents as somewhat A/O, but per ED provider patient believes it is the year 1980 and cannot identify the current president. Patient's nephew endorses that patient has been more weak and presenting with more confusion since Saturday. It is reported that at baseline, patient ambulates independently, rides a motorcycle and manages ADLs. There is concern for patient's ability to manage ADLs in recent days since UTI. Nephew reports that he works shift work and cannot be home with patient all the time, it is reported that there is other local family in the area but they are not involved in patient's care. Patient endorses limited funds and states he receives SSI. Patient states he thought he applied for Medicaid. STRIP STAMP STRAIGHTENER calls [facility] regarding patient and leaves requesting return call. Per ED provider Dr. Cornell, patient is likely to be admitted for UTI and AMS. STRIP STAMP STRAIGHTENER provides nephew with Senior Resource guide and reports that STRIP STAMP STRAIGHTENER will call [facility] in regards to patient. Plan: If patient is admitted, he may benefit from PT/OT eval and coordination with [facility] for possible eligibility. Pending admission at this time. JULIANNE PereaSW
[2023-01-31] MEDS: POTASSIUM CHLORIDE IN WATER 10 MEQ/100 ML PIGGYBACK 100 MEQ IV ×3 (19:36→22:00)
--- NOTE | 2023-01-31 20:01 | PM.HP.1 ---
History of Present Illness History of Present Illness Date Patient Seen: 01/31/23 Chief complaint: General Weakness Narrative: 82 y/o with PMH of prostatitis and kidney stones, seen in the ED 2 days ago with dysuria and acute urinary retention. He was discharged home with [facility] and Rx for Kefelx that he did not file. Family brought him today encephalopathic, confused, weak. Workup in ED revealed emphysematous cystitis, enlarged prostate, laukocytosis, weakness and metabolic encephalopathy. [facility] Medical History (Updated 01/31/23 @ 20:26 by Sahil Riojas MD) History of prostatitis History of transient ischemic attack Hypertension Nephrolithiasis Type 2 diabetes mellitus without complications Surgical History H/O hernia repair Social History household members: friend(s) Smoking Status: Former smoker alcohol intake: former additional social history: He quit smoking over 20 years ago. 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 He plans to move to [place] within a couple of days. He denies alcohol use. Meds Home Medications and Allergies Home Medications Medication Instructions Recorded Confirmed Type atorvastatin 20 mg tablet (Lipitor) 20 mg PO HS #30 tabs 08/23/16 01/31/23 Rx glipizide 10 mg tablet 10 mg PO BID #60 tabs 09/22/17 01/31/23 Rx metformin 500 mg tablet,extended 1,000 mg PO DAILY #60 tabs 09/22/17 01/31/23 Rx release 24hr amlodipine 10 mg tablet 10 mg PO DAILY 01/29/23 01/31/23 History aspirin 81 mg tablet,delayed 81 mg PO DAILY 01/29/23 01/31/23 History release chlorthalidone 25 mg tablet 25 mg PO DAILY 01/29/23 01/31/23 History lisinopril 20 mg tablet 20 mg PO DAILY 01/29/23 01/31/23 History potassium chloride 20 mEq 20 meq PO DAILY 01/29/23 01/31/23 History tablet,extended release(part/cryst) cephalexin 500 mg capsule 500 mg PO Q6H 10 days #40 caps 01/30/23 01/31/23 Rx Allergies Allergy/AdvReac Type Severity Reaction Status Date / Time Sulfa (Sulfonamide Allergy Intermediate Rash Verified 01/31/23 16:45 Antibiotics) codeine AdvReac Intermediate Hallucinati Verified 01/31/23 16:45 ng ibuprofen [From MOTRIN] AdvReac Mild makes me Verified 01/31/23 16:45 sick Review of Systems Review of Systems Narrative: Hardly obtainable due to encephalopathy and hearing loss Cardiovascular Comments: w/o chest pain Respiratory Comments: w/o shortness of breath Gastrointestinal Comments: w/o flank or abdominal pain Genitourinary Comments: w/o dysuria Exam Vital Signs (past 8 hours): - 01/31/23 16:35 01/31/23 16:39 01/31/23 16:39 Temperature 98.2 F Pulse Rate 80 79 Respiratory Rate 22 Blood Pressure 158/79 H 158/76 H Pulse Oximetry 100 99 Oxygen Delivery Method Room Air 01/31/23 17:00 01/31/23 17:02 01/31/23 17:02 Temperature Pulse Rate 88 84 Respiratory Rate 41 H 33 H Blood Pressure 141/69 H Pulse Oximetry 95 91 Oxygen Delivery Method 01/31/23 17:30 01/31/23 17:31 01/31/23 17:31 Temperature Pulse Rate 80 90 Respiratory Rate 16 31 H Blood Pressure 170/83 H Pulse Oximetry 95 94 Oxygen Delivery Method 01/31/23 18:00 01/31/23 18:00 01/31/23 18:30 Temperature Pulse Rate 82 83 Respiratory Rate 18 30 H Blood Pressure 170/82 H Pulse Oximetry 98 99 Oxygen Delivery Method 01/31/23 18:54 01/31/23 18:54 01/31/23 19:00 Temperature Pulse Rate 84 Respiratory Rate 38 H Blood Pressure 141/76 H 149/78 H Pulse Oximetry 98 Oxygen Delivery Method 01/31/23 19:00 Temperature Pulse Rate 84 Respiratory Rate 19 Blood Pressure Pulse Oximetry 96 Oxygen Delivery Method Oxygen Delivery Method Room Air Narrative Exam Narrative: laying in bed in no distress HENMT Other: hearing loss Eyes Other: eomi, reactive pupils Resp Other: CTA Cardio Other: RRR, no murmurs Skin Other: w/o rashes Neuro Other: w/o focal muscle weakness or numbness Extrem Other: w/o swelling Psych Other: encephalopathic Objective Labs 01/31/23 16:49 01/31/23 16:49 Labs: Laboratory Results - last 24 hr 01/31/23 01/31/23 01/31/23 16:46 16:49 16:49 WBC 14.6 H RBC 4.56 Hgb 13.5 Hct 39.5 L MCV 86.6 MCH 29.6 MCHC 34.2 RDW 14.4 Plt Count 162 Neut % (Auto) 77.3 H Lymph % (Auto) 7.8 L [place] % (Auto) 14.6 H Eos % (Auto) 0.1 L Baso % (Auto) 0.2 Neut # (Auto) 71722 H Lymph # (Auto) 1100 [place] # (Auto) 2100 H Eos # (Auto) 0 Baso # (Auto) 0 PT 13.0 H INR 1.1 APTT Sodium Potassium Chloride Carbon Dioxide BUN Creatinine Estimated GFR BUN/Creatinine Ratio Glucose Lactate Calcium Total Bilirubin AST ALT Alkaline Phosphatase Total Creatine Kinase Troponin I Total Protein Albumin Globulin Albumin/Globulin Ratio Urine Color Yellow Urine Appearance Clear Urine pH 5.5 Ur Specific [place] 1.015 Urine Protein 1+ H Urine Glucose (UA) Negative Urine Ketones Trace H Urine Occult Blood 3+ H Urine Nitrate Negative Urine Bilirubin Negative Urine Urobilinogen 1.0 Ur Leukocyte Esterase 1+ H Urine RBC 30-100/hpf H Urine WBC 10-30/hpf H Ur Squamous Epith Cells 0-1 /hpf Urine Bacteria Moderate (10-30) H Ur Culture Indicated? Specimen cultured Micro UA Comment 01/31/23 01/31/23 01/31/23 16:49 16:49 16:49 WBC RBC Hgb Hct MCV MCH MCHC RDW Plt Count Neut % (Auto) Lymph % (Auto) [place] % (Auto) Eos % (Auto) Baso % (Auto) Neut # (Auto) Lymph # (Auto) [place] # (Auto) Eos # (Auto) Baso # (Auto) PT INR APTT 24 L Sodium 132 L Potassium 3.0 L Chloride 93 L Carbon Dioxide 30 BUN 45 H Creatinine 1.15 Estimated GFR > 60 BUN/Creatinine Ratio 39.1 H Glucose 148 H Lactate 1.8 Calcium 12.3 H Total Bilirubin 1.1 AST 32 ALT 26 Alkaline Phosphatase 96 Total Creatine Kinase 52 L Troponin I < 0.012 Total Protein 7.9 Albumin 4.0 Globulin 3.9 Albumin/Globulin Ratio 1.0 Urine Color Urine Appearance Urine pH Ur Specific [place] Urine Protein Urine Glucose (UA) Urine Ketones Urine Occult Blood Urine Nitrate Urine Bilirubin Urine Urobilinogen Ur Leukocyte Esterase Urine RBC Urine WBC Ur Squamous Epith Cells Urine Bacteria Ur Culture Indicated? Micro UA Comment Assessment & Plan Assessment and plan (1) Emphysematous cystitis: Status: Acute Plan: Seen on CT. No stones detected. Rocephin. Grew Klebsiella from UA 2 days ago. Not septic. (2) Acute urinary retention: Status: Acute Plan: referral to urology. CT shows enlarged prostate. Get PSA. Prostate enlarged on CT. Start Flomax. (3) Hypokalemia: Status: Acute Plan: Supplemented in ED, KCl daily - BMP in am - likely from diuretic - check Mg (4) Acute metabolic encephalopathy: Status: Acute Plan: 2nd to UTI (5) Generalized weakness: Status: Acute Plan: 2nd to UTI with some baseline chronic confusion (6) Type 2 diabetes mellitus without complications: Status: Acute Plan: CCD, CBG bid, Metformin / Glipizide (7) Hypertension: Status: Acute Plan: Chlorthalidone, norvasc (8) History of transient ischemic attack: Status: Acute Plan: ASA, statin, BP control (9) Enlarged prostate: Status: Acute Plan: see above
[2023-01-31] MEDS: cefTRIAXone 1,000 MG in SODIUM CHLORIDE 0.9% 100 ML 200 MG IV (21:40)
[2023-01-31] MEDS: ATORVASTATIN 20 MG TABLET PO (23:06)
[2023-02-01] MEDS: POTASSIUM CHLORIDE IN WATER 10 MEQ/100 ML PIGGYBACK 100 MEQ IV ×7 (00:04→21:41)
--- NOTE | 2023-02-01 01:11 | PC.NURSE ---
Pt rec'v all 4 Potassium Chloride (100ml) infusion bags totaling 400ml, w/ no waste. Tolerated w/o complaint.
--- NOTE | 2023-02-01 08:36 | P.PN_ITS ---
Subjective Subjective Interval history: Patient A/Ox3 today. Says he has been having urination problems for quite a while and has never seen urology. Exam Vital Signs (past 8 hours): Oxygen Delivery Method Room Air Narrative Exam Narrative: laying in bed in no distress HENMT Other: hearing loss, A/Ox3 Eyes Other: eomi, reactive pupils Resp Other: CTA Cardio Other: RRR, no murmurs Skin Other: w/o rashes Neuro Other: w/o focal muscle weakness or numbness Extrem Other: w/o swelling Psych Other: normal Objective Labs 02/01/23 08:30 02/01/23 09:36 Labs: Laboratory Results - last 24 hr 01/31/23 01/31/23 01/31/23 16:46 16:49 16:49 WBC 14.6 H RBC 4.56 Hgb 13.5 Hct 39.5 L MCV 86.6 MCH 29.6 MCHC 34.2 RDW 14.4 Plt Count 162 Neut % (Auto) 77.3 H Lymph % (Auto) 7.8 L [place] % (Auto) 14.6 H Eos % (Auto) 0.1 L Baso % (Auto) 0.2 Neut # (Auto) 79438 H Lymph # (Auto) 1100 [place] # (Auto) 2100 H Eos # (Auto) 0 Baso # (Auto) 0 PT 13.0 H INR 1.1 APTT Sodium Potassium Chloride Carbon Dioxide BUN Creatinine Estimated GFR BUN/Creatinine Ratio Glucose Lactate Calcium Total Bilirubin AST ALT Alkaline Phosphatase Total Creatine Kinase Troponin I Total Protein Albumin Globulin Albumin/Globulin Ratio Urine Color Yellow Urine Appearance Clear Urine pH 5.5 Ur Specific [place] 1.015 Urine Protein 1+ H Urine Glucose (UA) Negative Urine Ketones Trace H Urine Occult Blood 3+ H Urine Nitrate Negative Urine Bilirubin Negative Urine Urobilinogen 1.0 Ur Leukocyte Esterase 1+ H Urine RBC 30-100/hpf H Urine WBC 10-30/hpf H Ur Squamous Epith Cells 0-1 /hpf Urine Bacteria Moderate (10-30) H Ur Culture Indicated? Specimen cultured Micro UA Comment 01/31/23 01/31/23 01/31/23 16:49 16:49 16:49 WBC RBC Hgb Hct MCV MCH MCHC RDW Plt Count Neut % (Auto) Lymph % (Auto) [place] % (Auto) Eos % (Auto) Baso % (Auto) Neut # (Auto) Lymph # (Auto) [place] # (Auto) Eos # (Auto) Baso # (Auto) PT INR APTT 24 L Sodium 132 L Potassium 3.0 L Chloride 93 L Carbon Dioxide 30 BUN 45 H Creatinine 1.15 Estimated GFR > 60 BUN/Creatinine Ratio 39.1 H Glucose 148 H Lactate 1.8 Calcium 12.3 H Total Bilirubin 1.1 AST 32 ALT 26 Alkaline Phosphatase 96 Total Creatine Kinase 52 L Troponin I < 0.012 Total Protein 7.9 Albumin 4.0 Globulin 3.9 Albumin/Globulin Ratio 1.0 Urine Color Urine Appearance Urine pH Ur Specific [place] Urine Protein Urine Glucose (UA) Urine Ketones Urine Occult Blood Urine Nitrate Urine Bilirubin Urine Urobilinogen Ur Leukocyte Esterase Urine RBC Urine WBC Ur Squamous Epith Cells Urine Bacteria Ur Culture Indicated? Micro UA Comment [facility] Medical History (Updated 01/31/23 @ 20:26 by Sahil Riojas MD) History of prostatitis History of transient ischemic attack Hypertension Nephrolithiasis Type 2 diabetes mellitus without complications Surgical History H/O hernia repair Social History household members: family Smoking Status: Former smoker alcohol intake: former additional social history: He quit smoking over 20 years ago. 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 He plans to move to [place] within a couple of days. He de nies alcohol use. Assessment & Plan Assessment and plan (1) Emphysematous cystitis: Status: Acute Plan: Seen on CT. No stones detected. Rocephin. Grew Klebsiella from UA 2 days ago. Not septic. F/u urine culture (2) Acute urinary retention: Status: Acute Plan: referral to urology. CT shows enlarged prostate. PSA 14.9. Prostate enlarged on CT. Start Flomax. qshift bladder scans with PVR (3) Hypokalemia: Status: Acute Plan: Supplemented in ED, KCl daily - BMP in am - likely from diuretic - check Mg (4) Acute metabolic encephalopathy: Status: Acute Plan: 2nd to UTI Now resolved (5) Generalized weakness: Status: Acute Plan: 2nd to UTI with some baseline chronic confusion (6) Type 2 diabetes mellitus without complications: Status: Acute Plan: CCD, CBG bid, Metformin / Glipizide (7) Hypertension: Status: Acute Plan: Chlorthalidone, norvasc (8) History of transient ischemic attack: Status: Acute Plan: ASA, statin, BP control (9) Enlarged prostate: Status: Acute Plan: see above Plan Dispo: Likely home on 02/02. Quality VTE Deep Vein Thrombosis/Pulmonary Embolism Present on Admission: No
[2023-02-01] MEDS: METFORMIN XR 500 MG TABLET 1000 MG PO (08:45)
[2023-02-01] MEDS: POTASSIUM CHLORIDE 20 MEQ TAB PO (08:45)
[2023-02-01] MEDS: ASPIRIN EC 81 MG TABLET PO (08:46)
[2023-02-01] MEDS: CHLORTHALIDONE 25 MG TABLET PO (08:46)
[2023-02-01] MEDS: AMLODIPINE 5 MG TABLET 10 MG PO (08:46)
[2023-02-01] MEDS: TAMSULOSIN 0.4 MG CAPSULE PO (08:47)
[2023-02-01] MEDS: ENOXAPARIN 30 MG/0.3 ML SYRINGE SUBCUT (08:47)
[2023-02-01 08:54] LABS: Hemoglobin A1C% w Est Avg Glu 6.4 % (4.0-6.0)
[2023-02-01 08:56] LABS: Add Manual Diff / Slide Review NO; Basophils Absolute Auto 0 /uL (0-100); Basophils Percent Auto 0.3 % (0-2); Eosinophils Absolute Auto 100 /uL (0-450); Eosinophils Percent Auto 0.6 % (2-4); Hemoglobin 12.4 g/dL (13.5-17.5); Lymphocytes Absolute Auto 1000 /uL (1100-4500); Lymphocytes Percent Auto 8.1 % (25-40); Mean Corpuscular HGB Conc 34.4 % (30-36); Mean Corpuscular Hemoglobin 29.9 PG (26-34); Mean Corpuscular Volume 86.7 fL (80-100); Monocytes Absolute Auto 2400 /uL (0-900); Monocytes Percent Auto 18.9 % (3-14); Neutrophils Absolute Auto 9100 /uL (1500-7000); Neutrophils Percent Auto 72.1 % (50-75); Platelet Count 138 X10^3/uL (150-400); Red Blood Cell Count 4.15 X10^6/uL (4.5-5.9); Red Cell Distribution Width 14.3 % (11.6-14.8); White Blood Cell Count 12.6 X10^3/uL (4.5-11.0)
[2023-02-01 09:07] VITALS: BP 133/78; PULSE 80; RESP 18; TEMP 37.3; O2SAT 96
[2023-02-01 09:31] LABS: Prostate Specific Antigen 14.9 ng/mL (0.10-4.00)
[2023-02-01 10:03] LABS: BUN Creatinine Ratio 22.1 (6-22); Blood Urea Nitrogen 21 mg/dL (9-20); Calcium 10.3 mg/dL (8.4-10.2); Carbon Dioxide 26 mmol/L (22-32); Chloride 96 mmol/L (98-107); Estimated Glomerular Filt Rate > 60 mL/min (>60); Glucose 199 mg/dL (80-110); HEMOLYSIS < 15 (0-50); Magnesium 1.7 mg/dL (1.6-2.3); Potassium 2.8 mmol/L (3.4-5.1); Sodium 132 mmol/L (137-145)
[2023-02-01] MEDS: MAGNESIUM SULFATE 2 GM/50 ML PIGGYBACK IV (12:21)
[2023-02-01] MEDS: INSULIN LISPRO 100 UNIT/ML 3ML VIAL SUBCUT ×2 (12:24→17:05)
--- NOTE | 2023-02-01 14:45 | CM.DANOTE ---
Initial DCP Assessment Note Pt is a 82 yo male, resident of [place], arrives with weakness and altered mental status, admitted for management of cystitis, enlarged prostate, laukocytosis, weakness and metabolic encephalopathy PCP: Yvonne Mosley Payer: [facility] CONTRERAS Reviewed chart. Patient still encephalopathic so placed call to patient's listed onctact nephew Casimiro, introduced self and role. Patient has been living with nephew for a year in [place], had been living in a trailer in [place] up until a year ago. Patient is indp in all aspects and drives a [employer] for transportation. Patient has a daughter that lives in [place], patient and she are not on contact. Asked nephew where patient will be as he continues to age and inevitably, need more assistance (?) Nephew unsure what patient will do and does not offer himself as the person that will care for patient in the jail. Nephew okay with patient's return home w/him, possibly HH if recommended, upon discharge. Suggested review of the Senior Resource Guide and review of the [employer] [facility] application, which this ROD AND TUBE STRAIGHTENER will leave at patient's bedside. therapy evals pending. If the recommendation if SNF- patient has Abby CONTRERAS so contracted facility and Abby auth will need to be secured. CM team following closely for coordination of DCP; Home w/nephew- r/o need for HH vs SNF w/RACH Colon Discharge Planning/Care Management CM Discharge Assessment Start: 02/01/23 14:41 Freq: Status: Active Protocol: Document 02/01/23 14:42 JESSICA (Rec: 02/01/23 14:45 JESSICA [id number]) Discharge Planning Assessment Assigned Pump Servicer Supervisor RACH Parsons DPOA/Assigned Designee Name joslyn Cunningham Contact Information [phone] Advance Directives? No Advance Directives on File No History Provided By Family Member,Medical Record Prior Living Arrangements House Household Members family,friend(s) Type of transporation used prior to Drives own vehicle admit Independent with ADL's Yes Is patient alert and oriented? Yes Barriers to Discharge No Comment Following as medical plan of care unfolds. Likely return home to nephew's home in [place] upon discharge, r/o need for HH Discharge Plan Home with Home Health Transportation Arrangement Family Additional Comment Follow to r/o need for HH closer to [place]. therapy evals pending today
--- NOTE | 2023-02-01 14:55 | PT.IIE ---
Current Diagnoses Type 2 diabetes mellitus without complications (01/31/23) Hypokalemia (01/31/23) Metabolic encephalopathy (01/31/23) Essential (primary) hypertension (01/31/23) Other cystitis without hematuria (01/31/23) Benign prostatic hyperplasia without lower urinary tract symptoms (01/31/23) Other retention of urine (01/31/23) Weakness (01/31/23) Personal history of transient ischemic attack (TIA), and cerebral infarction without residual deficits (01/31/23) Surgical History (Last Reviewed 01/31/23 @ 20:03 by Sahil Riojas MD) H/O hernia repair Medical History (Last Updated 01/31/23 @ 20:07 by Sahil Riojas MD) History of prostatitis History of transient ischemic attack Hypertension Nephrolithiasis Type 2 diabetes mellitus without complications Physical Therapy Inpatient Evaluation/Re-Eval M1 PT/OT-IP Prior Functional Status Start: 02/01/23 16:10 Freq: NEEDED Status: Active Protocol: Document 02/01/23 14:55 AB (Rec: 02/01/23 16:29 AB [id number]) Medical Review Prior Functional Status Medical History Reviewed Yes Communication able to make needs known; T[place]K and needs time to respond to questions and instructions Mobility and Gait pt stated that he is modified independent with all mobilities and ambulation without AD; per nephew, pt still rides his motorcycle Social History Household Members family Living Arrangements House Number of Floors (Floors) Two Floors Number of Stairs To Enter/Railing? pt stays on main level of the house no steps to enter Home Environment High Toilet,Tub/Shower Home Equipment Straight Cane,Lift Recliner Additional Social History Comment pt sleeps on his lift chair pt lives with his nephew but his nephew works and cannot provide 24/7 assist; stated that they are working on getting him to another place M2 PT-IP Current Condition Start: 02/01/23 16:10 Freq: NEEDED Status: Active Protocol: Document 02/01/23 14:55 AB (Rec: 02/01/23 16:29 AB [id number]) Physical Therapy Current Condition Current Condition Evaluation Date 02/01/23 Treatment Diagnosis UTI; cystitis; difficulty in walking Onset Date 01/31/23 M3 PT-IP Subjective Start: 02/01/23 16:10 Freq: NEEDED Status: Active Protocol: Document 02/01/23 14:55 AB (Rec: 02/01/23 16:29 AB [id number]) Subjective Physical Therapy Visit Type Type Initial Evaluation Visit Start Time 14:55 Visit Stop Time 15:25 Total Visit Minutes 30 Number of C SOFTWARE DEVELOPER Visits 0 Physical Therapy Visit Comments Patient Comments agreeable to do PT Therapy Pain Assessment Pain When Pain Assessed At Rest Pain Present Pain Present Pain Reported Location Neck Intensity 4 Scale Used Numeric (0 - 10) Pain Management Techniques Distraction,Modification of Treatment,Re-positioning Lower Back Intensity 4 Scale Used Numeric (0 - 10) Pain Management Techniques Distraction,Modification of Treatment,Re-positioning M4 PT-IP Mobility and Gait Start: 02/01/23 16:10 Freq: NEEDED Status: Active Protocol: Document 02/01/23 14:55 AB (Rec: 02/01/23 16:29 AB [id number]) PT-Bed Mobility Assessment Supine to Sit Supine to Sit Standby Assistance,Head of Bed Elevated,Bedrails PT-Transfer Assessment Sit to and From Stand Sit to and from Stand Contact Guard Assistance,1 Person Assistance,Use of Upper Extremities Equipment Transfer Assistive Device Gait Belt,Front Wheeled Walker Orthotic/Prosthetic Devices or Brace: No Transfers Transfer Destination Toilet Transfer Technique ambulated Transfer Ability Level of Assist Contact Guard Assistance Comments Mobility Comments pt in bed with HOB elevated. agreeable to do PT. c/o diarrhea and stated that he is not able to control. completed supine to sit SBA with HOB elevated and pt used bed rail to assist. pt sleeps on his lift chair at home. completed sit to stand CGA and ambulated to the toilet using FWW CGA. pt is impulsive and needs cues for safety. needs assist with brief management. nurse in room and needing to be cleaned up. left pt with nurse. informed pt's nephew to obtain a FWW for pt to use at home and stated that he will go to [employer] today to borrow one. Gait Assessment Gait Gait Assistance Required: Contact Guard Assist Distance (Feet) 12 PT-Balance Assessment Sitting Balance and Reactions Static Sitting Balance Ability Good Dynamic Sitting Balance Ability Good Standing Balance and Reactions Static Standing Balance Ability Fair Dynamic Standing Balance Ability Fair Device Used FWW M5 PT-IP Objective Assessments Start: 02/01/23 16:10 Freq: NEEDED Status: Active Protocol: Document 02/01/23 14:55 AB (Rec: 02/01/23 16:29 AB [id number]) Orientation Orientation/Cognition Level of Alertness Alert Orientation Name,Place,Situation Language Function Ability Hard of Hearing Safety Awareness Decreased Safety Awareness Memory Description 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 Gross Range of Motion Lower Extremity ROM Assessment Within Functional Limits Strength Lower Extremity Strength Assessment Within Functional Limits Sensation Assessment Sensation Gross Sensation WNL Muscle Tone Muscle Tone WNL Yes M6 PT-IP Treatment Start: 02/01/23 16:10 Freq: NEEDED Status: Active Protocol: Document 02/01/23 14:55 AB (Rec: 02/01/23 16:29 AB [id number]) Physical Therapy Treatment Education Education Provided Safety M7 PT-IP Assessment and Plan Start: 02/01/23 16:10 Freq: NEEDED Status: Active Protocol: Document 02/01/23 14:55 AB (Rec: 02/01/23 16:29 AB [email or web address]) PT Summary Assessment and Plan Potential Rehabilitation Potential Fair Status of Condition at Evaluation Evolving Summary Impairments Pain,ROM,Strength,Balance, Coordination,Sensation,Tone, Cognition,Bed Mobility, Transfers,Gait,Activity Tolerance Assessment Summary pt is an 82 y/o male who presented to the ED due to AMS and generalized weakness. pt admitted for systitis, UTI, metabolic encephalopathy. pt lives with his nephew but nephew will not be able to provide 26/11. pt requiring CGA with sit to stand and ambulation using FWW and is impulsive. will continue to assess progress. d/c plan: SNF vs home with HHPT. Goals Bed Mobility Goal Standby Assistance Transfer Goal Independent,Front Wheeled Walker Gait Goal Independent,Front Wheel Walker Gait Distance 200 Other Goals improve transfers and ambulation using SPC/without AD 300 ft mod I Days to Meet Goals 10 Frequency of Treatment Frequency Of Treatment Once a Day Treatment Plan Physical Therapy Treatment Plan Bed Mobility Training,Transfer Training,Gait Training, Therapeutic Exercise,Balance Retraining,Discharge Planning, Hot or Cold Pack,Neuromuscular Re-ed,Coordination Retraining Precautions Other Precautions falls Recommendations To Nursing Amount of Assist Needed 1 Person Assist Discharge Recommendations PT Discharge Recommendations Home with Assistance,Home Health,SNF Rehab,Home vs SNF Equipment Needed for Home Before FWW Discharge Transportation Needs at Discharge Private Vehicle,Wheelchair/ Cabulance
--- NOTE | 2023-02-01 18:03 | OT.IPNOTE ---
Pt eating dinner not able to see for OT yoni.
[2023-02-01] MEDS: cefTRIAXone 1,000 MG in SODIUM CHLORIDE 0.9% 100 ML 200 MG IV (19:33)
[2023-02-01 20:05] VITALS: BP 128/68; PULSE 84; RESP 16; TEMP 37.4; O2SAT 96
[2023-02-01] MEDS: ATORVASTATIN 20 MG TABLET PO (21:19)
[2023-02-02 08:07] VITALS: BP 117/76; PULSE 69; RESP 17; TEMP 36.1; O2SAT 96
[2023-02-02] MEDS: INSULIN LISPRO 100 UNIT/ML 3ML VIAL SUBCUT ×2 (08:10→12:48)
[2023-02-02] MEDS: cefTRIAXone 1,000 MG in SODIUM CHLORIDE 0.9% 100 ML 200 MG IV (09:16)
[2023-02-02] MEDS: METFORMIN XR 500 MG TABLET 1000 MG PO (09:18)
[2023-02-02] MEDS: TAMSULOSIN 0.4 MG CAPSULE PO (09:18)
[2023-02-02 09:19] VITALS: BP 116/75; RESP 18
[2023-02-02] MEDS: ASPIRIN EC 81 MG TABLET PO (09:19)
[2023-02-02] MEDS: POTASSIUM CHLORIDE 20 MEQ TAB 40 MEQ PO ×2 (09:19→13:42)
[2023-02-02] MEDS: AMLODIPINE 5 MG TABLET 10 MG PO (09:19)
[2023-02-02] MEDS: CHLORTHALIDONE 25 MG TABLET PO (09:20)
[2023-02-02] MEDS: ENOXAPARIN 40 MG/0.4 ML SYRINGE SUBCUT (09:21)
--- NOTE | 2023-02-02 10:05 | PT.IPTN ---
Current Diagnoses Type 2 diabetes mellitus without complications (01/31/23) Hypokalemia (01/31/23) Metabolic encephalopathy (01/31/23) Essential (primary) hypertension (01/31/23) Other cystitis without hematuria (01/31/23) Benign prostatic hyperplasia without lower urinary tract symptoms (01/31/23) Other retention of urine (01/31/23) Weakness (01/31/23) Personal history of transient ischemic attack (TIA), and cerebral infarction without residual deficits (01/31/23) Physical Therapy Treatment Note M2 PT-IP Current Condition Start: 02/01/23 16:10 Freq: NEEDED Status: Active Protocol: Document 02/01/23 14:55 AB (Rec: 02/01/23 16:29 AB [id number]) Physical Therapy Current Condition Current Condition Evaluation Date 02/01/23 Treatment Diagnosis UTI; cystitis; difficulty in walking Onset Date 01/31/23 M3 PT-IP Subjective Start: 02/01/23 16:10 Freq: NEEDED Status: Active Protocol: Document 02/02/23 10:37 TS (Rec: 02/02/23 10:52 TS [id number]) Subjective Physical Therapy Visit Type Type Treatment Note Visit Start Time 10:05 Visit Stop Time 10:35 Total Visit Minutes 30 Number of CLOSED CIRCUIT SCREEN WATCHER Visits 1 Physical Therapy Visit Comments Patient Comments Pt found resting in bed, reports he is feeling better, agreeable to PT. M4 PT-IP Mobility and Gait Start: 02/01/23 16:10 Freq: NEEDED Status: Active Protocol: Document 02/02/23 10:37 TS (Rec: 02/02/23 10:52 TS [id number]) PT-Bed Mobility Assessment Supine to Sit Supine to Sit Standby Assistance,Head of Bed Elevated,Bedrails Sit to Supine Sit to Supine Standby Assistance,1 Person Assistance,Head of Bed Elevated Scooting Scooting to Edge of Bed Standby Assistance Scooting Up and Down in Bed Standby Assistance PT-Transfer Assessment Sit to and From Stand Sit to and from Stand Contact Guard Assistance,1 Person Assistance,Use of Upper Extremities Equipment Transfer Assistive Device None,Gait Belt,Front Wheeled Walker Orthotic/Prosthetic Devices or Brace: No Comments Mobility Comments Supine to sit HOB elevated 65D SBA with use of bedrail. Sit to stand no AD CGA, pt is impulsive to stand before therapist is ready, FWW provided for balance. Pt ambulated ~175' CGA/SBA w/FWW. Pt has a quick paced gait, he is unsteady with some swaying and NBOS. Back in room sit to supine into bed SBA with HOB elevated. Pt scooted to HOB with cues for B handrail assist and pushing through LEs . Pt was left with nursing staff, bed alarm on. Gait Assessment Gait Gait Assistance Required: Standby Assistance,Contact Guard Assist Distance (Feet) 175 Assistive Devices Assistive Device Gait Belt,Front Wheeled Walker Orthotic/Prosthetic Devices or Brace: No Gait Deviations General Gait Pattern Flexed Trunk,Narrow Based Gait Factors Limiting Gait Function Factors Limiting Gait Function Decreased Activity Tolerance, Decreased Strength,Difficulty Following Directions,Poor Balance,Poor Safety Awareness Comments Gait Comments See mobility comments. PT-Balance Assessment Sitting Balance and Reactions Static Sitting Balance Ability Good Dynamic Sitting Balance Ability Good Standing Balance and Reactions Static Standing Balance Ability Fair Dynamic Standing Balance Ability Fair Device Used FWW M5 PT-IP Objective Assessments Start: 02/01/23 16:10 Freq: NEEDED Status: Active Protocol: Document 02/01/23 14:55 AB (Rec: 02/01/23 16:29 AB [id number]) Orientation Orientation/Cognition Level of Alertness Alert Orientation Name,Place,Situation Language Function Ability Hard of Hearing Safety Awareness Decreased Safety Awareness Memory Description 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 Gross Range of Motion Lower Extremity ROM Assessment Within Functional Limits Strength Lower Extremity Strength Assessment Within Functional Limits Sensation Assessment Sensation Gross Sensation WNL Muscle Tone Muscle Tone WNL Yes M6 PT-IP Treatment Start: 02/01/23 16:10 Freq: NEEDED Status: Active Protocol: Document 02/02/23 10:37 TS (Rec: 02/02/23 10:52 [id number]) Physical Therapy Treatment Education Education Provided Safety M7 PT-IP Assessment and Plan Start: 02/01/23 16:10 Freq: NEEDED Status: Active Protocol: Document 02/02/23 10:37 TS (Rec: 02/02/23 10:52 [id number]) PT Summary Assessment and Plan Potential Rehabilitation Potential Fair Summary Impairments Pain,ROM,Strength,Balance, Coordination,Sensation,Tone, Cognition,Bed Mobility, Transfers,Gait,Activity Tolerance Progress Towards Goals Progressing Toward Goals Assessment Summary Haresh is making progress with his mobility this session. He continues to be SBA for all bed mobility, does require some cueing for use of handrail. He performed sit to stand with no AD CGA, he is impulsive to stand before therapist is ready with FWW and lacks good safety awareness. He progressed his ambulation to ~175' SBA/CGA. He is unsteady ambulating with a NBOS and use of FWW. PT continues to recommend home vs SNF. Pt remains a falls risk and continues to have decreased strength and activity tolerance. Pt would benefit from SNF rehab before d/c home. Goals Bed Mobility Goal Standby Assistance Transfer Goal Independent,Front Wheeled Walker Gait Goal Independent,Front Wheel Walker Gait Distance 200 Other Goals improve transfers and ambulation using SPC/without AD 300 ft mod I Days to Meet Goals 10 Frequency of Treatment Frequency Of Treatment Once a Day Treatment Plan Physical Therapy Treatment Plan Bed Mobility Training,Transfer Training,Gait Training, Therapeutic Exercise,Balance Retraining,Discharge Planning, Hot or Cold Pack,Neuromuscular Re-ed,Coordination Retraining Precautions Other Precautions falls Recommendations To Nursing Amount of Assist Needed 1 Person Assist Discharge Recommendations PT Discharge Recommendations Home with Assistance,Home Health,SNF Rehab,Home vs SNF Equipment Needed for Home Before FWW Discharge Transportation Needs at Discharge Private Vehicle,Wheelchair/ Cabulance
[2023-02-02] MEDS: MAGNESIUM SULFATE 2 GM/50 ML PIGGYBACK IV (10:32)
--- NOTE | 2023-02-02 10:59 | CM.DPC ---
DCP Cont: Met with patient, he is discharging today, to see if he was interested in home health. Patient is discharging back to his nephew's. Mentioned that to qualify for home health, would have to be homebound. Patient indicated, I',m planning on driving in a couple of days to go to my doctor's in [facility] on Saturday, therefor, will not qualify. He did ask about housing, is looking for a rental, unsure if he is on the list. May have some housing resources. P: Patient is discharging home today. Sharlene Higgins RN/Telephony Engineer
--- NOTE | 2023-02-02 11:38 | PM.DS.1 ---
History of Present Illness History of Present Illness Date Patient Seen: 01/31/23 Chief complaint: General Weakness Narrative: 82 y/o with PMH of prostatitis and kidney stones, seen in the ED 2 days ago with dysuria and acute urinary retention. He was discharged home with Harris and Rx for Kefelx that he did not file. Family brought him today encephalopathic, confused, weak. Workup in ED revealed emphysematous cystitis, enlarged prostate, laukocytosis, weakness and metabolic encephalopathy. Discharge Providers Provider Date of admission: 01/31/23 19:45 Discharge Date: 02/02/23 Primary care physician: SIXTO Kim Consults: 01/31/23 17:49 Consult to VENEER GLUER - Phytopathology Teacher Stat Comment: 02/01/23 09:07 Consult to Occupational Therapy Evaluate & Treat Comment: Physician Instructions: Evaluate and treat Consult to Physical Therapy Evaluate & Treat Comment: Physician Instructions: Evaluate and Treat Discharge provider: Lc Kramer, DO Summary Hospital Course Discharge Diagnosis: (1) Emphysematous cystitis: ?Status:?Acute ?Plan: Seen on CT. No stones detected. Rocephin. Grew Klebsiella from UA 2 days ago. Not septic. Urine culture with klebsiella sensitive to quinolones. (2) Acute urinary retention: ?Status:?Acute ?Plan: referral to urology. CT shows enlarged prostate. PSA 14.9. Prostate enlarged on CT. Start Flomax. Harris placed and discharged with this to see urology (3) Hypokalemia: ?Status:?Acute ?Plan: Supplemented in ED, KCl daily - likely from diuretic - mag 1.1 and repleted (4) Acute metabolic encephalopathy: ?Status:?Resolved ?Plan: 2nd to UTI Now resolved (5) Generalized weakness: ?Status:?Acute ?Plan: 2nd to UTI with some baseline chronic confusion (6) Type 2 diabetes mellitus without complications: ?Status:?Acute ?Plan: CCD, CBG bid, Metformin / Glipizide (7) Hypertension: ?Status:?Acute ?Plan: Chlorthalidone, norvasc (8) History of transient ischemic attack: ?Status:?Acute ?Plan: ASA, statin, BP control (9) Enlarged prostate: ?Status:?Acute ?Plan: see above Hospital Course: Admitted for acute encephalopathy from UTI. Given IV abx and his AMS resolved. CT showed cystitis and enlarged prostate. PSA 14.9. Harris placed due to urinary retention. Will f/up with urology for BPH treatment. Started on flomax. Will finish 2 more days of cipro at home. Exam Vital Signs (past 8 hours): - 02/02/23 08:07 02/02/23 09:19 Temperature 97.0 F L Pulse Rate 69 Respiratory Rate 17 18 Blood Pressure 117/76 116/75 Pulse Oximetry 96 Oxygen Flow Rate 0 Oxygen Delivery Method Room Air Oxygen Flow Rate 0 Narrative Exam Narrative: laying in bed in no distress HENMT Other: hearing loss, A/Ox3 Eyes Other: eomi, reactive pupils Resp Other: CTA Cardio Other: RRR, no murmurs Skin Other: w/o rashes Neuro Other: w/o focal muscle weakness or numbness Extrem Other: w/o swelling Psych Other: normal Objective Labs 02/01/23 08:30 02/01/23 09:36 [facility] Medical History (Updated 01/31/23 @ 20:26 by Sahil Riojas MD) History of prostatitis History of transient ischemic attack Hypertension Nephrolithiasis Type 2 diabetes mellitus without complications Surgical History H/O hernia repair Social History household members: family Smoking Status: Former smoker alcohol intake: former additional social history: He quit smoking over 20 years ago. 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 He plans to move to [place] within a couple of days. He denies alcohol use. Discharge Plan Discharge Plan Patient Disposition: Home Provider Discharge Comment: You were diagnosed with a UTI, likely due to urinary retention from your prostate. You will be treated with antibiotics and a med called flomax to shrink your prostate. You should follow-up with urology for management of your retention going forward and I've sent a referral there. Their number is [phone]. I've increased your metformin and potassium to better control your diabetes and low potassium. Discharge orders & Medications Prescriptions: New tamsulosin [Flomax] 0.4 mg Capsule 0.4 mg PO DAILY Qty: 90 0RF ciprofloxacin HCl [Cipro] 500 mg tablet 500 mg PO BID 2 Days Qty: 4 0RF Rx Instructions: start on 02/03 lactulose 20 gram/30 mL solution 20 g PO DAILY PRN (Reason: constipation) Qty: 1200 0RF Continued atorvastatin [Lipitor] 20 MG tablet 20 mg PO HS Qty: 30 9RF glipizide 10 mg tablet 10 mg PO BID Qty: 60 0RF lisinopril 20 mg tablet 20 mg PO DAILY chlorthalidone 25 mg tablet 25 mg PO DAILY aspirin 81 mg tablet,delayed release (DR/EC) 81 mg PO DAILY amlodipine 10 mg tablet 10 mg PO DAILY Changed potassium chloride 20 mEq tablet,ER particles/crystals 40 meq PO DAILY Qty: 30 0RF metformin 500 mg tablet extended release 24hr 1,000 mg PO BIDWM Qty: 60 0RF Rx Instructions: administer with evening meal Discontinued cephalexin 500 mg capsule 500 mg PO Q6H 10 Days Qty: 40 0RF Rx Instructions: did not start Follow up/Referrals: Yvonne Mosley ARNP [Primary Care Provider] - 2 Weeks Other Ambulatory Orders: Referral Urology (Schedule) Facility: [facility] - Location: [facility] Ordered By: Lc Kramer Visit Report/Discharge Packet Instructions: How to Care for Your Harris Catheter -- Male, DI for Urinary Tract Infection (UTI), DI for Urinary Retention in Men, Ciprofloxacin, Tamsulosin Stand Alone Forms: Patient Portal/API, Stroke Signs & Symptoms Discharge Data Primary Care Provider: Yvonne Mosley Discharges patient from system. Discharge Date/Time: 02/02/23 14:45 Quality VTE Deep Vein Thrombosis/Pulmonary Embolism Present on Admission: No
== END 2023-02-02 14:45 | disposition home or self-care (01) | DRG 689 ==
LOC: ED 19:26 → AC 19:46
PROVIDERS: Emergency Medicine; Admitting Provider Internal Medicine; Emergency Provider Emergency Medicine; Family Provider Nurse Practitioner; PCP Nurse Practitioner; Referring Provider Emergency Medicine; Visit Provider Internal Medicine
DX: N30.80 Other cystitis without hematuria (principal); G93.41 Metabolic encephalopathy; E87.6 Hypokalemia; I10 Essential (primary) hypertension; B96.1 Klebsiella pneumoniae [K. pneumoniae] as the cause of diseases classified elsewhere; N40.1 Benign prostatic hyperplasia with lower urinary tract symptoms; R33.8 Other retention of urine; E11.9 Type 2 diabetes mellitus without complications; Z79.84 Long term (current) use of oral hypoglycemic drugs; Z87.891 Personal history of nicotine dependence; Z86.73 Personal history of transient ischemic attack (TIA), and cerebral infarction without residual deficits
CPT/HCPCS: 36415; 51798; 71045; 74177; 80048; 80053; 81001; 82550; 82962; 83036; 83605; 83735; 84153; 84484; 85025; 85610; 85730; 87040; 87077; 87086; 87186; 93005; 96365; 96367; 97116; 97162; 97530; 99284; J0696; J1650; J1815; J3475; Q9967

== ENCOUNTER → 2023-10-04 08:07 | Outpatient (CLI) | payer MEDICARE, SELFPAY ==
[2023-01-31 21:00] VITALS: BMI 28.7
[2023-10-04 08:51] LABS: Add Manual Diff / Slide Review NO; Basophils Absolute Auto 0 /uL (0-100); Basophils Percent Auto 0.6 % (0-2); Eosinophils Absolute Auto 200 /uL (0-450); Eosinophils Percent Auto 2.1 % (2-4); Hematocrit 40.2 % (41-53); Hemoglobin 13.6 g/dL (13.5-17.5); Lymphocytes Absolute Auto 3400 /uL (1100-4500); Lymphocytes Percent Auto 40.8 % (25-40); Mean Corpuscular HGB Conc 33.8 % (30-36); Mean Corpuscular Hemoglobin 29.9 PG (26-34); Mean Corpuscular Volume 88.4 fL (80-100); Monocytes Absolute Auto 800 /uL (0-900); Monocytes Percent Auto 9.5 % (3-14); Neutrophils Absolute Auto 3900 /uL (1500-7000); Platelet Count 145 X10^3/uL (150-400); Red Blood Cell Count 4.55 X10^6/uL (4.5-5.9); Red Cell Distribution Width 13.9 % (11.6-14.8); White Blood Cell Count 8.3 X10^3/uL (4.5-11.0)
[2023-10-04 08:59] LABS: Hemoglobin A1C% w Est Avg Glu 13.2 % (4.0-6.0)
[2023-10-04 09:17] LABS: HEMOLYSIS < 15 (0-50); Sodium 134 mmol/L (137-145)
[2023-10-04 09:19] LABS: Albumin 3.7 g/dL (3.5-5.0); Albumin Globulin Ratio 1.3 (1.0-2.8); Alkaline Phosphatase 135 U/L (38-126); Aspartate Aminotransferase 16 IU/L (17-59); Bilirubin Total 0.7 mg/dL (0.2-1.3); Blood Urea Nitrogen 21 mg/dL (9-20); Calcium 10.7 mg/dL (8.4-10.2); Carbon Dioxide 27 mmol/L (22-32); Chloride 103 mmol/L (98-107); Cholesterol 167 mg/dL (140-199); Estimated Glomerular Filt Rate > 60 mL/min (>60); Globulin 2.9 g/dL (1.7-4.1); Glucose 373 mg/dL (80-110); HDL Cholesterol 65 mg/dL (40-60); LDL Cholesterol Calculated 82 mg/dL (<100); Total Protein 6.6 g/dL (6.3-8.2); Triglycerides 100 mg/dL (35-150)
[2023-10-04 09:20] LABS: Alanine Aminotransferase 12 IU/L (<50)
[2023-10-04 09:55] LABS: Creatinine Urine Random 41.42 mg/dL
== END ==
PROVIDERS: Family Provider Nurse Practitioner; PCP Family Medicine; Referring Provider Family Medicine; Visit Provider Family Medicine
DX: I10 Essential (primary) hypertension (principal); E11.9 Type 2 diabetes mellitus without complications; K92.1 Melena; N40.0 Benign prostatic hyperplasia without lower urinary tract symptoms
CPT/HCPCS: 36415; 80053; 80061; 82043; 82570; 83036; 85025

== ENCOUNTER → 2023-12-05 09:07 | Outpatient (CLI) | payer MEDICARE, SELFPAY ==
[2023-01-31 21:00] VITALS: BMI 28.7
[2023-12-06 09:40] LABS: Ionized Calcium 5.9 mg/dL (4.5-5.6)
[2023-12-08 00:13] LABS: Calcium 11.6 mg/dL (8.6-10.2); Parathyroid Hormone, Intact 109 pg/mL (15-65)
== END ==
PROVIDERS: Family Provider Nurse Practitioner; PCP Family Medicine; Referring Provider Family Medicine; Visit Provider Family Medicine
DX: E83.52 Hypercalcemia (principal); R35.0 Frequency of micturition
CPT/HCPCS: 36415; 82310; 82330; 83970; 87077; 87086; 87186

== ENCOUNTER → 2023-12-11 07:47 | Outpatient (CLI) | payer MEDICARE, SELFPAY ==
[2023-01-31 21:00] VITALS: BMI 28.7
[2023-12-11 09:54] LABS: Hemoglobin A1C% w Est Avg Glu 12.4 % (4.0-6.0)
[2023-12-11 10:00] LABS: Appearance Urine UA CLOUDY; Bilirubin Urine UA NEGATIVE (NEGATIVE); Color Urine UA YELLOW; Glucose Urine UA NEGATIVE (Negative); Ketones Urine UA NEGATIVE (NEGATIVE); Leukocyte Esterase Urine UA 3+ (NEGATIVE); Nitrite Urine UA NEGATIVE (Negative); Occult Blood Urine UA 1+ (Negative); Protein Urine UA 1+ (Negative); Specific Gravity Urine UA 1.015 (1.000-1.035); Urobilinogen Urine UA 0.2 E.U./dL (0.2)
[2023-12-11 10:07] LABS: Vitamin D 25 Hydroxy (D3) 14.6 ng/mL (30.0-100.0)
[2023-12-11 10:19] LABS: Bacteria Urine Many (>30); Culture Indicated Urine Specimen Cultured; RBC Urine 0-1/HPF (0-5/HPF); Squamous Epithelial Cell Urine 0-1 /HPF (0-5/HPF); Urine Volume 10mL (spun); WBC Urine 30-100/HPF (0-5/HPF)
== END ==
PROVIDERS: Family Provider Nurse Practitioner; PCP Family Medicine; Referring Provider Family Medicine; Visit Provider Family Medicine
DX: E11.9 Type 2 diabetes mellitus without complications (principal); E21.3 Hyperparathyroidism, unspecified; R35.0 Frequency of micturition
CPT/HCPCS: 36415; 81001; 82306; 83036; 87077; 87086

== ENCOUNTER → 2023-12-13 10:27 | Outpatient (CLI) | payer MEDICARE, SELFPAY ==
[2023-01-31 21:00] VITALS: BMI 28.7
[2023-12-13 15:46] LABS: Calcium 24 Hour Urine 37 mg/day (100-300); Calcium Urine Random 10.7 mg/dL; Collection Time Urine 24 Hours; Total Volume Urine 350 mL
== END ==
PROVIDERS: Family Provider Nurse Practitioner; PCP Family Medicine; Referring Provider Family Medicine; Visit Provider Family Medicine
DX: E83.52 Hypercalcemia (principal)
CPT/HCPCS: 82340

== ENCOUNTER 2023-12-19 11:10 | Emergency (ER) | payer MEDICARE, SELFPAY ==
[2023-01-31 21:00] VITALS: BMI 28.7
[2023-12-19 11:15] VITALS: BP 131/85; PULSE 88; RESP 16; TEMP 36.6; O2SAT 99; BMI 25.4
--- NOTE | 2023-12-19 11:43 | ED_ITS ---
HPI - Male Genitourinary General Chief complaint: Urogenital-Male Stated complaint: sicker than a dog Time Seen by Provider: 12/19/23 11:29 Source: family Mode of arrival: Ambulatory History of Present Illness HPI Narrative: Patient is sent here from primary care office of Dr. Adam Aguilar with [facility]. Patient had office visit December 05, 2023 and complain of frequency dysuria. Urine culture was done. Positive of Klebsiella. Sensitivity was completed, sensitive to Keflex Rocephin cefepime Cipro Levaquin Macrobid Bactrim Zosyn. Resistant to ampicillin.. Today in the office electronically sent to patient's pharmacy for Keflex 500 mg 3 times a day for 7 days. However patient had informed the office that he was too weak to go. In the past week since his visit he has been having nausea diarrhea urinary frequency very weak unable to walk. Patient in no distress at this time. Speaking very quickly and evenly. Is not toxic appearing. Is very jovial and interactive. Very energetic. Patient's good friend/past is at bedside next to him. They both having good conversation and laughing together. Related Data Home Medications Medication Instructions Recorded Confirmed amlodipine 10 mg tablet 10 mg PO DAILY 01/29/23 12/05/23 aspirin 81 mg tablet,delayed 81 mg PO DAILY 01/29/23 12/05/23 release chlorthalidone 25 mg tablet 25 mg PO DAILY 01/29/23 12/05/23 atorvastatin 40 mg tablet 40 mg PO DAILY 10/03/23 12/05/23 glipizide 5 mg tablet 5 mg PO BID 10/03/23 12/05/23 Previous Rx's Medication Instructions Recorded potassium chloride 20 mEq 40 meq (2 x 20 mEq) PO DAILY #30 02/02/23 tablet,extended release(part/cryst) tabs lisinopril 10 mg tablet 10 mg PO DAILY #30 tabs 11/05/23 metformin 1,000 mg tablet 1,000 mg PO BID #60 tabs 11/05/23 dulaglutide 0.75 mg/0.5 mL 0.75 mg (0.5 mL) SUBCUT QWEEK #1 mL 12/05/23 subcutaneous pen injector cholecalciferol (vitamin D3) 25 25 mcg PO DAILY #90 caps 12/16/23 mcg (1,000 unit) capsule tamsulosin 0.4 mg capsule 0.4 mg PO DAILY #30 caps 12/16/23 cephalexin 500 mg capsule 500 mg PO TID 7 days #21 caps 12/19/23 Allergies Allergy/AdvReac Type Severity Reaction Status Date / Time Sulfa (Sulfonamide Allergy Intermediate Rash Verified 12/05/23 09:59 Antibiotics) codeine AdvReac Intermediate Hallucinati Verified 12/05/23 09:59 ng ibuprofen [From MOTRIN] AdvReac Mild makes me Verified 12/05/23 09:59 sick Review of Systems Review of Systems Narrative: GENERAL: negative chills, positive fatigue, malaise, negative fever, sweats. Positive weight loss HEENT: negative sinus pain, ear pain, sore throat RESPIRATORY: negative dyspnea, cough CARDIOVASCULAR: negative chest pain, palpitations GASTROINTESTINAL: negative nausea, vomiting, abdominal pain, positive diarrhea : Positive dysuria, frequency, negative hematuria MUSCULOSKELETAL: negative muscle or bony pain SKIN: negative rash, skin lesions NEUROLOGIC: negative weakness, numbness Patient History Medical History Emphysematous cystitis Expressive aphasia Bloody stool TIA (transient ischemic attack) Metatarsal fracture History of transient ischemic attack Type 2 diabetes mellitus without complications History of prostatitis Nephrolithiasis Surgical History H/O hernia repair Social History household members: family Smoking Status: Former smoker alcohol intake: former additional social history: He quit smoking over 20 years ago. 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 He plans to move to [place] within a couple of days. He denies alcohol use. Smoking Status: Former smoker alcohol intake frequency: 0-2 drinks per day Substance Use Type: does not use Exam Narrative Exam Narrative: GENERAL: in no distress, not toxic not dyspneic, speaking very easily. Very jovial and joking and laughing with his friend and staff. HEAD: Normocephalic. EYES: Pupils equal round ENT: Mucous membranes moist. NECK: Trachea midline. CARDIOVASCULAR: Regular rate and rhythm RESPIRATORY: Clear to auscultation. Breath sounds equal bilaterally. No wheezes, rales, or rhonchi. GASTROINTESTINAL: Abdomen soft, non-tender, no peritoneal signs. No guarding or rebound. No pain out of portion exam. Bowel sounds are present. No CVA tenderness EXTREMITIES: No gross deformities. BACK: No flank tenderness. NEURO: AOx4. Clear speech no facial droop light touch intact bilateral face strong equal playground monitor. SKIN: Warm and dry PSYCH: Not anxious, is cooperative Initial Vital Signs Initial Vital Signs: Vital Signs Temperature 97.8 F 12/19/23 11:15 Pulse Rate 88 12/19/23 11:15 Respiratory Rate 16 12/19/23 11:15 Blood Pressure 131/85 12/19/23 11:15 Pulse Oximetry 99 12/19/23 11:15 Oxygen Delivery Method Room Air 12/19/23 11:15 Course Orders Ordered: Discontinued Medications Sodium Chloride (Normal Saline 0.9%) 1,000 mls @ 1,000 mls/hr IV BOLUS ONE Stop: 12/19/23 12:37 Last Infusion: 12/19/23 13:31 Dose: Infused Documented By: Admin: 12/19/23 12:06 Dose: 1,000 mls/hr Documented By: RAY Ceftriaxone Sodium 2,000 mg/ (Sodium Chloride) 100 mls @ 200 mls/hr IV NOW ONE Stop: 12/19/23 12:21 Last Infusion: 12/19/23 13:31 Dose: Infused Documented By: Admin: 12/19/23 12:30 Dose: 200 mls/hr Documented By: RAY Vital Signs Vital signs: Vital Signs - 8 hr 12/19/23 11:15 12/19/23 13:04 Temperature 97.8 F Pulse Rate 88 83 Respiratory Rate 16 14 Blood Pressure 131/85 124/80 Pulse Oximetry 99 99 Oxygen Delivery Method Room Air Room Air MDM - Male Genitourinary Lab Data 12/19/23 11:48 12/19/23 11:48 Labs: Lab Results 12/19/23 12/19/23 Range/Units 11:48 12:06 WBC 7.3 (4.5-11.0) X10^3/uL RBC 4.55 (4.5-5.9) X10^6/uL Hgb 13.5 (13.5-17.5) g/dL Hct 39.1 L (41-53) % MCV 85.8 (80-100) fL MCH 29.7 (26-34) PG MCHC 34.6 (30-36) % RDW 14.1 (11.6-14.8) % Plt Count 160 (150-400) X10^3/uL Neut % (Auto) 47.5 L (50-75) % Lymph % (Auto) 39.4 (25-40) % Rincon % (Auto) 11.8 (3-14) % Eos % (Auto) 0.9 L (2-4) % Baso % (Auto) 0.4 (0-2) % Neut # (Auto) 3500 (2872-9027) /uL Lymph # (Auto) 2900 (8447-0188) /uL Rincon # (Auto) 900 (0-900) /uL Eos # (Auto) 100 (0-450) /uL Baso # (Auto) 0 (0-100) /uL Sodium 135 L (137-145) mmol/L Potassium 4.5 (3.4-5.1) mmol/L Chloride 106 (98-107) mmol/L Carbon Dioxide 17 L (22-32) mmol/L BUN 41 H (9-20) mg/dL Creatinine 1.52 H (0.66-1.25) mg/dL Estimated GFR 46 L (>60) mL/min BUN/Creatinine Ratio 27.0 H (6-22) Glucose 201 H (80-110) mg/dL Lactate 1.7 (0.7-2.1) mmol/L Calcium 11.0 H (8.4-10.2) mg/dL Total Bilirubin 1.0 (0.2-1.3) mg/dL AST 24 (17-59) IU/L ALT 18 (<50) IU/L Alkaline Phosphatase 78 (38-126) U/L Total Protein 7.6 (6.3-8.2) g/dL Albumin 4.2 (3.5-5.0) g/dL Globulin 3.4 (1.7-4.1) g/dL Albumin/Globulin Ratio 1.2 (1.0-2.8) Procalcitonin 0.105 (<0.5) ng/mL Chlamy pneumoniae PCR Not detected (Not Detect) Adenovirus (PCR) Not detected (Not Detect) B.parapertussis DNA PCR Not detected (Not Detecte) Coronavirus OC43 (PCR) Not detected (Not Detect) Coronavirus HKU1 (PCR) Not detected (Not Detect) Coronavirus 229E (PCR) Not detected (Not Detect) SARS-CoV-2 (PCR) Detected H (Not Detecte) Coronavirus NL63 (PCR) Not detected (Not Detect) Human Metapneumovir PCR Not detected (Not Detect) Influenza Type A (PCR) Not detected (Not Detect) Influenza Type B (PCR) Not detected (Not Detect) M. pneumoniae (PCR) Not detected (Not Detect) Parainfluenza 1 (PCR) Not detected (Not Detect) Parainfluenza 2 (PCR) Not detected (Not Detect) Parainfluenza 3 (PCR) Not detected (Not Detect) Parainfluenza 4 (PCR) Not detected (Not Detect) RSV (PCR) Not detected (Not Detect) Entero/Rhino (PCR) Not detected (Not Detect) Imaging Data CT chest abdomen pelvis: Radiologist's Impression: [place] [address] CT Scan Report Signed Patient: Haresh Pizarro MR#: [id number] : 1940 Acct:[id number] Age/Sex: 83 / M Date of Service: 12/19/23 Loc: ED Accession Number: [id number] Procedure: CT chest abd pel wo con Ordering Provider: Farshad Jesus MD PROCEDURE: CT CHEST ABD PEL WO CON INDICATIONS: Sepsis TECHNIQUE: After the administration of oral contrast, 5 mm thick sections acquired from the lung apices to the symphysis pubis. 5 mm thick coronal and sagittal reformats acquired, with additional 7 mm coronal MIP reformats through the lungs. For radiation dose reduction, the following was used: automated exposure control, adjustment of mA and/or kV according to patient size. COMPARISON: None. FINDINGS: Image quality: Diagnostic. CHEST: Lower Neck: No enlarged lymph nodes. Thyroid: No thyroid nodules which require sonographic follow up, per consensus guidelines. Axillae: No enlarged lymph nodes. Chest Wall: Unremarkable. Bones: Unremarkable. Lungs and Pleura: No pneumothorax or pleural effusions. There is a process in the left apex with branching nodularity suggesting probable mucous plugging and bronchiectasis. There is a large ground-glass opacity in the posterior left lower lobe on image 222/5. It measures 4.3 x 2.2 cm. It is nonspecific in appearance, but can potentially represent adenocarcinoma in situ or indolent adenocarcinoma. Additional ground-glass opacities are present in the lingula of the left lung on image 249, as well as multifocal lesions in the right lower lobe. Findings include a 2.8 cm ground-glass opacity in the right lower lobe on image 249, a 2.8 x 1.3 cm ground-glass opacity in the right lower lobe on image 253, and a 1.1 x 1.1 cm ground-glass opacity in the right lower lobe on image 248. There is a left basilar ground-glass opacity on image 279 measuring 1.9 x 1.5 cm. Heart: Heart size is normal. No pericardial effusion. Severe coronary artery calcifications. Thoracic Vessels: The aorta and pulmonary arteries demonstrate normal size. Mediastinum and Lulu: No enlarged lymph nodes. Esophagus: No wall thickening. No hiatal hernia. ABDOMEN: Liver: No solid mass. Gallbladder: No radiopaque gallstones or wall thickening. Biliary ducts: No biliary dilation. Pancreas: Pancreatic calcifications are consistent with an element of chronic pancreatitis. No obvious masses. Spleen: Size is within normal limits. Adrenal Glands: No adrenal nodules. Kidneys and Ureters: No hydronephrosis. No solid mass. No complex renal cystic lesion which requires follow up. Stomach and Bowel: Question right colonic mass. This is not definite. Reference image 78 of series 2. Peritoneum: No abnormal intraperitoneal fluid. No free air. Ventral Wall: No hernia. Abdominal Nodes: No retroperitoneal or mesenteric adenopathy by size criteria. Vessels: Aorta and inferior vena cava are normal in size. PELVIS: Pelvic Organs: Enlarged prostate. Bladder: Mild wall thickening. Pelvic Nodes: No enlarged lymph nodes. Miscellaneous: No inguinal hernias are seen. Bones: No aggressive osseous abnormality. IMPRESSION: 1. No definite acute process noted in the chest, abdomen, and pelvis. 2. Severe coronary artery atherosclerotic calcifications. 3. Numerous bilateral ground-glass opacities are nonspecific. Measurements as described above. They may potentially represent adenocarcinoma in situ or indolent adenocarcinoma. Follow-up is recommended. 4. Question right colonic mass. 5. Prostatomegaly with mild bladder wall thickening. Comment: Recommend colonoscopy to evaluate the right colon. Recommend six- month follow-up CT chest. Alternatively, if there is high suspicion of malignancy, consider PET-CT Dictated by: Xavier Moss M.D. on 12/19/2023 at 13:45 Approved by: Xavier Moss M.D. on 12/19/2023 at 13:52 [facility] Narrative Medical decision making narrative: Patient is sent here from primary care office of Dr. Adam Aguilar with [facility]. Patient had office visit December 05, 2023 and complain of frequency dysuria. Urine culture was done. Positive of Klebsiella. Sensitivity was completed, sensitive to Keflex Rocephin cefepime Cipro Levaquin Macrobid Bactrim Zosyn. Resistant to ampicillin.. Today in the office electronically sent to patient's pharmacy for Keflex 500 mg 3 times a day for 7 days. However patient had informed the office that he was too weak to go. In the past week since his visit he has been having nausea diarrhea urinary frequency very weak unable to walk. Patient in no distress at this time. Speaking very quickly and evenly. Is not toxic appearing. Is very jovial and interactive. Very energetic. Patient's good friend/past is at bedside next to him. They both having good conversation and laughing together After history and exam CBC CMP procalcitonin lactic acid urinalysis chest x-ray respiratory panel normal saline [facility] Medical records reviewed: Patient's office visit December 05, 2023, urine culture sensitivity Differential considered: Includes but not limited to sepsis UTI viral syndrome dehydration Lab Test results independently reviewed as above. Pertinent findings: WBC 7.3 hemoglobin 13.5 hematocrit 39 platelets 160 Sodium 135 potassium 4.5 chloride 106 bicarb 17 BUN 41 creatinine 1.52 GFR 46 glucose 201 AST 24 ALT 18 alkaline phosphatase 78, respiratory panel positive COVID Imaging studies independently reviewed: CT chest abdomen pelvis, no acute finding and chest abdomen pelvis, long finding concerning for adenocarcinoma, possible colon lesion Consultations: 2:44 p.m.. I spoke with Dr. Adam Aguilar's office, I spoke with Nurse Sana, he is on vacation at this time. She will make sure he gets this information concerning about cancer on CT scan finding and will follow up with patient next week. Treatments: Normal saline, Rocephin Re-evaluations: 1:21 p.m.. Patient feeling much better. Has more color/pink to his cheeks after IV fluids 1 L. Will likely need another L. Reviewed with him renal function and likely prerenal/dehydration. He has not had urge to urinate yet. Not toxic. He is starting to feel better. No urge for a bowel movement. No diarrhea here. 2:00 p.m.. Patient able to urinate after IV fluids. Reviewed with him concerning for neoplasm/cancer in the lung and colon. This may be the reason for his weight loss recently. I am waiting to talk to his primary care for close follow up with Oncology. Also COVID positive likely incidental finding. He has not had any cough cold or congestion. Not requiring supplemental oxygen. At this time he does feel much better and feels strong enough to go home. 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 Patient states he did smoke heavily in his younger years but he quit in 1994. States he has not surprised with the findings of possible cancer. His recreation therapy director is at bedside. His friend. 2:[address] Aguilar is not called back but this will not change disposition. Patient desires discharge home. I will continue to wait for him to call back Discussion: Appropriate for discharge home exam is reassuring laboratory studies do show likely dehydration prerenal, patient has not ate or drank much in the past couple of weeks. Has had diarrhea as well. IV fluids given and patient feels much better. Return precautions reviewed. Rocephin given here, patient will continue Keflex prescription that is at the pharmacy waiting for him from primary care to continue tomorrow. Not toxic or dyspneic at discharge. He desires discharge home. His friend is at bedside. All questions answered for patient here. COVID positive but not requiring supplemental oxygen. No sudden onset of time so no Paxlovid at this time. Return precautions reviewed. Patient did not have any diarrhea here. He understands these close follow up with his primary care for Oncology referral. I have contacted the office today. Dr. Adam Aguilar. Diagnosis: Acute UTI/dehydration/lung mass . Discharge Plan Departure Patient Disposition: Home Clinical Impression: Acute urinary tract infection, Acute dehydration, Lung mass Instructions: DI for Dehydration -- Adult, DI for Urinary Tract Infection (UTI) Activity Restrictions/Additional Instructions: You need very close follow up with your family doctor regarding the CT scan findings in your lungs, it is concerning for cancer. You will need referral to oncology services. You have been treated for urinary tract infection today. Prescription from your family doctor was sent to your pharmacy to orange picker machine operator today, please continue this antibiotic tomorrow as you have had IV antibiotics here today. Keep well hydrated. Return if worse if any questions or concerns. Prescriptions: No Action atorvastatin 40 mg tablet 40 mg PO DAILY glipizide 5 mg tablet 5 mg PO BID Hold Instructions: Home Medication placed on hold at Doctor's office dulaglutide 0.75 mg/0.5 mL pen injector 0.75 mg SUBCUT QWEEK Qty: 1 2RF lisinopril 10 mg tablet 10 mg PO DAILY Qty: 30 3RF metformin 1,000 mg tablet 1,000 mg PO BID Qty: 60 3RF Rx Instructions: Take 1/2 tab twice daily for 2 weeks then increase to 1 tab twice daily cholecalciferol (vitamin D3) 25 mcg (1,000 unit) capsule 25 mcg PO DAILY Qty: 90 1RF tamsulosin 0.4 mg capsule 0.4 mg PO DAILY Qty: 30 2RF cephalexin 500 mg capsule 500 mg PO TID 7 Days Qty: 21 0RF chlorthalidone 25 mg tablet 25 mg PO DAILY Hold Instructions: Home Medication placed on hold at Doctor's office aspirin 81 mg tablet,delayed release (DR/EC) 81 mg PO DAILY amlodipine 10 mg tablet 10 mg PO DAILY Hold Instructions: Home Medication placed on hold at Doctor's office potassium chloride 20 mEq tablet,ER particles/crystals 40 meq PO DAILY Qty: 30 0RF Hold Instructions: Home Medication placed on hold at Doctor's office Referrals: Adam Aguilar MD [Primary Care Provider] - Stand Alone Forms: Patient Portal/API
--- NOTE | 2023-12-19 11:50 | DI.CT.S_ITS ---
PROCEDURE: CT CHEST ABD PEL WO CON INDICATIONS: Sepsis TECHNIQUE: After the administration of oral contrast, 5 mm thick sections acquired from the lung apices to the symphysis pubis. 5 mm thick coronal and sagittal reformats acquired, with additional 7 mm coronal MIP reformats through the lungs. For radiation dose reduction, the following was used: automated exposure control, adjustment of mA and/or kV according to patient size. COMPARISON: None. FINDINGS: Image quality: Diagnostic. CHEST: Lower Neck: No enlarged lymph nodes. Thyroid: No thyroid nodules which require sonographic follow up, per consensus guidelines. Axillae: No enlarged lymph nodes. Chest Wall: Unremarkable. Bones: Unremarkable. Lungs and Pleura: No pneumothorax or pleural effusions. There is a process in the left apex with branching nodularity suggesting probable mucous plugging and bronchiectasis. There is a large ground-glass opacity in the posterior left lower lobe on image 222/5. It measures 4.3 x 2.2 cm. It is nonspecific in appearance, but can potentially represent adenocarcinoma in situ or indolent adenocarcinoma. Additional ground-glass opacities are present in the lingula of the left lung on image 249, as well as multifocal lesions in the right lower lobe. Findings include a 2.8 cm ground-glass opacity in the right lower lobe on image 249, a 2.8 x 1.3 cm ground-glass opacity in the right lower lobe on image 253, and a 1.1 x 1.1 cm ground-glass opacity in the right lower lobe on image 248. There is a left basilar ground-glass opacity on image 279 measuring 1.9 x 1.5 cm. Heart: Heart size is normal. No pericardial effusion. Severe coronary artery calcifications. Thoracic Vessels: The aorta and pulmonary arteries demonstrate normal size. Mediastinum and Lulu: No enlarged lymph nodes. Esophagus: No wall thickening. No hiatal hernia. ABDOMEN: Liver: No solid mass. Gallbladder: No radiopaque gallstones or wall thickening. Biliary ducts: No biliary dilation. Pancreas: Pancreatic calcifications are consistent with an element of chronic pancreatitis. No obvious masses. Spleen: Size is within normal limits. Adrenal Glands: No adrenal nodules. Kidneys and Ureters: No hydronephrosis. No solid mass. No complex renal cystic lesion which requires follow up. Stomach and Bowel: Question right colonic mass. This is not definite. Reference image 78 of series 2. Peritoneum: No abnormal intraperitoneal fluid. No free air. Ventral Wall: No hernia. Abdominal Nodes: No retroperitoneal or mesenteric adenopathy by size criteria. Vessels: Aorta and inferior vena cava are normal in size. PELVIS: Pelvic Organs: Enlarged prostate. Bladder: Mild wall thickening. Pelvic Nodes: No enlarged lymph nodes. Miscellaneous: No inguinal hernias are seen. Bones: No aggressive osseous abnormality. IMPRESSION: 1. No definite acute process noted in the chest, abdomen, and pelvis. 2. Severe coronary artery atherosclerotic calcifications. 3. Numerous bilateral ground-glass opacities are nonspecific. Measurements as described above. They may potentially represent adenocarcinoma in situ or indolent adenocarcinoma. Follow-up is recommended. 4. Question right colonic mass. 5. Prostatomegaly with mild bladder wall thickening. Comment: Recommend colonoscopy to evaluate the right colon. Recommend six-month follow-up CT chest. Alternatively, if there is high suspicion of malignancy, consider PET-CT Dictated by: Xavier Moss M.D. on 12/19/2023 at 13:45 Approved by: Xavier Moss M.D. on 12/19/2023 at 13:52
[2023-12-19] MEDS: SODIUM CHLORIDE 0.9% 1,000 ML 1000 ML IV (12:06)
[2023-12-19 12:08] LABS: Add Manual Diff / Slide Review NO; Basophils Absolute Auto 0 /uL (0-100); Basophils Percent Auto 0.4 % (0-2); Eosinophils Absolute Auto 100 /uL (0-450); Eosinophils Percent Auto 0.9 % (2-4); Hematocrit 39.1 % (41-53); Hemoglobin 13.5 g/dL (13.5-17.5); Lymphocytes Absolute Auto 2900 /uL (1100-4500); Lymphocytes Percent Auto 39.4 % (25-40); Mean Corpuscular HGB Conc 34.6 % (30-36); Mean Corpuscular Hemoglobin 29.7 PG (26-34); Mean Corpuscular Volume 85.8 fL (80-100); Monocytes Absolute Auto 900 /uL (0-900); Monocytes Percent Auto 11.8 % (3-14); Neutrophils Absolute Auto 3500 /uL (1500-7000); Neutrophils Percent Auto 47.5 % (50-75); Platelet Count 160 X10^3/uL (150-400); Red Blood Cell Count 4.55 X10^6/uL (4.5-5.9); Red Cell Distribution Width 14.1 % (11.6-14.8); White Blood Cell Count 7.3 X10^3/uL (4.5-11.0)
[2023-12-19 12:20] LABS: Alanine Aminotransferase 18 IU/L (<50); Albumin 4.2 g/dL (3.5-5.0); Albumin Globulin Ratio 1.2 (1.0-2.8); Alkaline Phosphatase 78 U/L (38-126); Aspartate Aminotransferase 24 IU/L (17-59); Blood Urea Nitrogen 41 mg/dL (9-20); Carbon Dioxide 17 mmol/L (22-32); Chloride 106 mmol/L (98-107); Estimated Glomerular Filt Rate 46 mL/min (>60); Globulin 3.4 g/dL (1.7-4.1); Glucose 201 mg/dL (80-110); HEMOLYSIS < 15 (0-50); Lactate (Lactic Acid) 1.7 mmol/L (0.7-2.1); Potassium 4.5 mmol/L (3.4-5.1); Sodium 135 mmol/L (137-145); Total Protein 7.6 g/dL (6.3-8.2)
[2023-12-19] MEDS: cefTRIAXone 2,000 MG in SODIUM CHLORIDE 0.9% 100 ML 200 MG IV (12:30)
[2023-12-19 12:36] LABS: Procalcitonin 0.105 ng/mL (<0.5)
[2023-12-19 13:04] VITALS: BP 124/80; PULSE 83; RESP 14; O2SAT 99
[2023-12-19 13:25] LABS: B. parapertussis Not Detected (Not Detecte); Bordetella pertussis Not Detected (Not Detect); Chlamydophila pneumoniae Not Detected (Not Detect); Coronavirus 229E Not Detected (Not Detect); Coronavirus HKU1 Not Detected (Not Detect); Coronavirus NL 63 Not Detected (Not Detect); Coronavirus OC43 Not Detected (Not Detect); Human Metapneumovirus Not Detected (Not Detect); Human Rhinovirus/Enterovirus Not Detected (Not Detect); Influenza A Not Detected (Not Detect); Influenza B Not Detected (Not Detect); Mycoplasma pneumoniae Not Detected (Not Detect); Parainfluenza Virus 1 Not Detected (Not Detect); Parainfluenza Virus 2 Not Detected (Not Detect); Parainfluenza Virus 3 Not Detected (Not Detect); Parainfluenza Virus 4 Not Detected (Not Detect); Respiratory Syncytial Virus Not Detected (Not Detect); SARS- CoV-2 Detected (Not Detecte)
[2023-12-19 13:29] LABS: Adenovirus Not Detected (Not Detect)
[2023-12-19 14:45] VITALS: BP 153/78; PULSE 83; RESP 16; O2SAT 99
== END 2023-12-19 14:49 | disposition home or self-care (01) ==
PROVIDERS: Emergency Provider Emergency Medicine; Family Provider Nurse Practitioner; PCP Family Medicine
DX: U07.1 COVID-19 (principal); N39.0 Urinary tract infection, site not specified; E86.0 Dehydration; R91.8 Other nonspecific abnormal finding of lung field
CPT/HCPCS: 36415; 71250; 74176; 80053; 83605; 84145; 85025; 87633; 96365; 99284; J0696

== ENCOUNTER 2024-02-12 15:10 | Emergency (ER) | payer MEDICARE, SELFPAY ==
[2023-01-31 21:00] VITALS: BMI 28.7
[2024-02-12 15:23] VITALS: BP 139/78; PULSE 79; RESP 18; TEMP 36.4; O2SAT 98; BMI 25.8
--- NOTE | 2024-02-12 15:29 | DI.RAD.S_ITS ---
PROCEDURE: XR ANKLE RT MIN 3V INDICATIONS: crush injury TECHNIQUE: 3 views of the ankle were acquired. COMPARISON: None. FINDINGS: Bones: Nondisplaced lucency within the distal fibular tip seen on oblique view only.. Ankle mortise is normally aligned. No suspicious bony lesions. Soft tissues: Mild lateral malleolar edema. IMPRESSION: Suspected nondisplaced distal fibular tip fracture seen only on one view. Recommend correlation point tenderness in short interval imaging follow-up. Dictated by: Kailyn Zamudio M.D. on 02/12/2024 at 16:06 Approved by: Kailyn Zamudio M.D. on 02/12/2024 at 16:07
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
[2024-02-12 17:38] VITALS: BP 141/69; PULSE 71; RESP 20; TEMP 37; O2SAT 95
== END 2024-02-12 17:39 | disposition home or self-care (01) ==
PROVIDERS: Emergency Provider Physician Assistant; Family Provider Nurse Practitioner; PCP Family Medicine
DX: S82.831A Other fracture of upper and lower end of right fibula, initial encounter for closed fracture (principal); S90.511A Abrasion, right ankle, initial encounter; S50.311A Abrasion of right elbow, initial encounter; S80.811A Abrasion, right lower leg, initial encounter; V29.99XA Rider (driver) (passenger) of other motorcycle injured in unspecified traffic accident, initial encounter
CPT/HCPCS: 29580; 73610; 99281; 99283

== ENCOUNTER 2024-02-13 18:38 | Inpatient (IN) | payer MEDICARE, SELFPAY ==
[2023-01-31 21:00] VITALS: BMI 28.7
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
[2024-02-13 18:51] VITALS: BP 198/88; PULSE 81; RESP 18; TEMP 36.6; O2SAT 97; BMI 25.8
[2024-02-13 19:11] LABS: Add Manual Diff / Slide Review NO; Basophils Absolute Auto 0 /uL (0-100); Basophils Percent Auto 0.2 % (0-2); Eosinophils Absolute Auto 100 /uL (0-450); Eosinophils Percent Auto 0.5 % (2-4); Hematocrit 39.6 % (41-53); Hemoglobin 13.3 g/dL (13.5-17.5); Lymphocytes Absolute Auto 1300 /uL (1100-4500); Lymphocytes Percent Auto 9.9 % (25-40); Mean Corpuscular HGB Conc 33.6 % (30-36); Mean Corpuscular Hemoglobin 30.6 PG (26-34); Mean Corpuscular Volume 91.1 fL (80-100); Monocytes Absolute Auto 1300 /uL (0-900); Neutrophils Absolute Auto 10100 /uL (1500-7000); Neutrophils Percent Auto 79.4 % (50-75); Platelet Count 133 X10^3/uL (150-400); Red Blood Cell Count 4.34 X10^6/uL (4.5-5.9); Red Cell Distribution Width 15.6 % (11.6-14.8); White Blood Cell Count 12.7 X10^3/uL (4.5-11.0)
[2024-02-13 19:27] LABS: Alanine Aminotransferase 22 IU/L (<50); Albumin 3.9 g/dL (3.5-5.0); Albumin Globulin Ratio 1.1 (1.0-2.8); Alkaline Phosphatase 98 U/L (38-126); Aspartate Aminotransferase 28 IU/L (17-59); BUN Creatinine Ratio 19.3 (6-22); Bilirubin Total 1.8 mg/dL (0.2-1.3); Blood Urea Nitrogen 27 mg/dL (9-20); Calcium 11.9 mg/dL (8.4-10.2); Carbon Dioxide 24 mmol/L (22-32); Chloride 102 mmol/L (98-107); Estimated Glomerular Filt Rate 50 mL/min (>60); Globulin 3.5 g/dL (1.7-4.1); Glucose 330 mg/dL (80-110); HEMOLYSIS < 15 (0-50); Potassium 4.6 mmol/L (3.4-5.1); Sodium 135 mmol/L (137-145); Total Protein 7.4 g/dL (6.3-8.2)
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
[2024-02-13 21:32] VITALS: PULSE 89; O2SAT 95
[2024-02-13 22:00] VITALS: BP 147/66; PULSE 86; O2SAT 93
[2024-02-13 22:30] VITALS: BP 148/67; PULSE 82; O2SAT 94
[2024-02-13 23:00] VITALS: BP 162/82; PULSE 84; O2SAT 96
[2024-02-13 23:30] VITALS: BP 173/81; PULSE 79; O2SAT 97
[2024-02-14] VITALS (41 sets, daily range): BP systolic 140–230; BP diastolic 75–109; PULSE 65–89; RESP 14–20; TEMP 36.4–36.6; O2SAT 92–100; BMI 25.8; BMI 25.7
--- NOTE | 2024-02-14 00:44 | PC.NURSE ---
Pt has been unable to given a urine sample, pt will be in the department until he can be seen by INDUSTRIAL MAINTENANCE MECHANIC. cond cath place to collect sample. Pt tucked in to get some sleep.
[2024-02-14 01:27] LABS: Appearance Urine UA CLEAR; Bilirubin Urine UA NEGATIVE (NEGATIVE); Color Urine UA YELLOW; Glucose Urine UA 3+ g/dL (Negative); Ketones Urine UA 1+ (NEGATIVE); Leukocyte Esterase Urine UA NEGATIVE (NEGATIVE); Nitrite Urine UA NEGATIVE (Negative); Occult Blood Urine UA TRACE-INTACT (Negative); Protein Urine UA 1+ (Negative); Specific Gravity Urine UA 1.025 (1.000-1.035); Urobilinogen Urine UA 0.2 E.U./dL (0.2)
[2024-02-14 01:34] LABS: Urine Volume 10mL (spun)
[2024-02-14 01:35] LABS: Granular Casts Urine 0-1/LPF; Hyaline Casts Urine 1-5/LPF; RBC Urine 1-5/HPF (0-5/HPF); Squamous Epithelial Cell Urine 1-5 /HPF (0-5/HPF)
[2024-02-14 01:36] LABS: Bacteria Urine Few (2-10); Culture Indicated Urine Cult Not Indicated; WBC Urine 1-5/HPF (0-5/HPF)
--- NOTE | 2024-02-14 03:25 | PC.NURSE ---
Pt has been sleeping for the last few hours, allowed pt to sleep without waking
[2024-02-14] MEDS: glipiZIDE 5 MG TABLET PO (08:06)
--- NOTE | 2024-02-14 08:17 | PC.NURSE ---
Pt is sitting up semi fowlers to eat breakfast. I provided pt education regarding his medications and pt states I dont want to take any because they make me feel worse. Pt is eventually willing to take his glipizide only to see how it makes him feel. He refused taking any other daily medications. He is alert and oriented, speaking clearly and appears in do acute distress. No neck pain while sitting up, stating if he were to lay flat his neck would bother him.
[2024-02-14] MEDS: BACITRACIN OINT 0.9 GM PCKT 3 APPLIC TOP (09:45)
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
--- NOTE | 2024-02-14 09:50 | PT.IIE ---
Current Diagnoses Unspecified fracture of shaft of right fibula, initial encounter for closed fracture (02/13/24) Surgical History (Last Reviewed 02/14/24 @ 05:11 by Bernadette Cornell MD) H/O hernia repair Medical History (Last Reviewed 02/14/24 @ 05:11 by Bernadette Cornell MD) Bloody stool Emphysematous cystitis Expressive aphasia History of prostatitis History of transient ischemic attack Metatarsal fracture Nephrolithiasis TIA (transient ischemic attack) Type 2 diabetes mellitus without complications Physical Therapy Inpatient Evaluation/Re-Eval M1 PT/OT-IP Prior Functional Status Start: 02/14/24 09:39 Freq: Status: Active Protocol: Document 02/14/24 09:50 AB (Rec: 02/14/24 12:39 AB [id number]) Medical Review Prior Functional Status Medical History Reviewed Yes Communication able to make needs known; gets easily distracted Mobility and Gait pt stated that he was modified independent with all mobilities using 2 SPC for ambulation; stated that he has balance problems and has h/o falls and does not walk much aside from walking to the toilet or kitchen. spends most of the day on his recliner Activities of Daily Living and IADL's per OT note: Prior to his falls, pt states was able to do ADL needs on his own. Pt states mainly just uses the microwave for meals. Social History Household Members family Living Arrangements House Number of Floors (Floors) Two Floors Number of Stairs To Enter/Railing? Pt stays on the main level of the house no steps to enter Home Environment High Toilet,Tub/Shower Home Equipment Straight Cane Additional Social History Comment pt lives with his nephew but nephew works 12 hour shifts in the [employer] and will not be able to assist pt M2 PT-IP Current Condition Start: 02/14/24 12:19 Freq: Status: Active Protocol: Document 02/14/24 09:50 AB (Rec: 02/14/24 12:39 AB [id number]) Physical Therapy Current Condition Current Condition Evaluation Date 02/14/24 Treatment Diagnosis GLF; R tib-fib fx; difficulty in walking Onset Date 02/14/24 M3 PT-IP Subjective Start: 02/14/24 12:19 Freq: Status: Active Protocol: Document 02/14/24 09:50 AB (Rec: 02/14/24 12:39 AB [id number]) Subjective Physical Therapy Visit Type Type Initial Evaluation Visit Start Time 09:50 Visit Stop Time 10:20 Number of TOWBOAT CAPTAIN Visits 0 Physical Therapy Visit Comments Patient Comments agreeable to do PT Therapy Pain Assessment Pain When Pain Assessed At Rest Location Right Ankle Intensity 10 Scale Used Numeric (0 - 10) Pain Management Techniques Distraction,Modification of Treatment,Re-positioning, Timing of Activity with Medications Neck Intensity 10 Scale Used Numeric (0 - 10) Pain Management Techniques Distraction,Modification of Treatment,Re-positioning, Timing of Activity with Medications M4 PT-IP Mobility and Gait Start: 02/14/24 12:19 Freq: Status: Active Protocol: Document 02/14/24 09:50 AB (Rec: 02/14/24 12:39 AB [id number]) PT-Bed Mobility Assessment Supine to Sit Supine to Sit Minimal Assistance Sit to Supine Sit to Supine Minimal Assistance PT-Transfer Assessment Sit to and From Stand Sit to and from Stand Maximum Assistance,2 Person Assistance,Use of Upper Extremities Equipment Transfer Assistive Device Gait Belt,Front Wheeled Walker Orthotic/Prosthetic Devices or Brace: No Comments Mobility Comments PT eval received from ED. EMR reviewed. Called for RLE weight bearing status and talked with ER doctor and said that he will look into it. checked back with ER doctor after 30 min and stated that pt is NWB on RLE. asked ER doctor and nurse to put in weight bearing status order. pt supine in bed and agreeable to do PT. obtained PLOF and home set up. pt easily distracted and can be impulsive needed cues to stay on task. educated pt regarding NWB on RLE. pt completed supine to sit min A and cues. pt able to sit on EOB SBA. completed sit to stand x 2 attempts requiring max A x 2 and max cues. pt requiring max A for standing balance on first attempt and was unsteady needing to sit back down. educated pt again on techniques on how to stand and stabilize and to pmaintain NWB on RLE. pt cmpleted again max A x 2 and was able to maintain standing using FWW for support mod A x 2 and max cues. pt tolerated ~ 5 sec of standing using FWW. attempted to walk/hop but unable. pt sat back on EOB. completed sit to supine min A and cues. positioned pt on the bed. call light and table placed within reach. Gait Assessment Comments Gait Comments unable at this time PT-Balance Assessment Sitting Balance and Reactions Static Sitting Balance Ability Good Dynamic Sitting Balance Ability Good Standing Balance and Reactions Static Standing Balance Ability Poor Dynamic Standing Balance Ability Poor Device Used FWW M5 PT-IP Objective Assessments Start: 02/14/24 12:19 Freq: Status: Active Protocol: Document 02/14/24 09:50 AB (Rec: 02/14/24 12:39 AB [id number]) Orientation Orientation/Cognition Level of Alertness Alert Orientation Name Language Function Ability Hard of Hearing Safety Awareness Decreased Safety Awareness Memory Description 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,History Tutor Impaired Gross Range of Motion Lower Extremity ROM Assessment Right Impaired Impairments R ankle NT and c/o pain on RLE even with light touch Strength Lower Extremity Strength Assessment Right Impaired Ankle NT Sensation Assessment Sensation Gross Sensation WNL Muscle Tone Muscle Tone WNL Yes M6 PT-IP Treatment Start: 02/14/24 12:19 Freq: Status: Active Protocol: Document 02/14/24 09:50 AB (Rec: 02/14/24 12:39 AB [id number]) Physical Therapy Treatment Education Education Provided Weight Bearing Status,Safety M7 PT-IP Assessment and Plan Start: 02/14/24 12:19 Freq: Status: Active Protocol: Document 02/14/24 09:50 AB (Rec: 02/14/24 12:39 AB [id number]) PT Summary Assessment and Plan Potential Rehabilitation Potential Fair Status of Condition at Evaluation Evolving Summary Impairments Pain,ROM,Strength,Balance, Coordination,Sensation,Tone, Cognition,Bed Mobility, Transfers,Gait,Activity Tolerance Assessment Summary pt is an 83 y/o M who presented to the ED after a GLF. pt with c/o R ankle pain and found to have R ankle fx. pt is NWB on RLE. pt needing min A for bed mobility, max A x 2 for sit to stand using FWW and unable to ambulate at this time. pt will need SNF rehab to improve overall strength and mobility. will continue to assess. Goals Bed Mobility Goal Independent Transfer Goal Moderate Assistance,Front Wheeled Walker Gait Goal Moderate Assistance,Front Wheel Walker Gait Distance 20 Other Goals improve transfers and ambulation using FWW 50 ft CGA Days to Meet Goals 10 Frequency of Treatment Frequency Of Treatment Once a Day Treatment Plan Physical Therapy Treatment Plan Bed Mobility Training,Transfer Training,Gait Training, Therapeutic Exercise,Balance Retraining,Discharge Planning, Hot or Cold Pack,Neuromuscular Re-ed,Coordination Retraining ,Manual Therapy Precautions Brace RLE walker boot Weight Bearing Status Weight Bearing Status Non-Weight Bearing Allowed Weight Bearing Amount (enter % RLE NWB or #) (%) Recommendations To Nursing Amount of Assist Needed Mechanical Lift Discharge Recommendations PT Discharge Recommendations SNF Rehab Transportation Needs at Discharge Wheelchair/Cabulance
--- NOTE | 2024-02-14 10:08 | PC.NURSE ---
Removed prior dressings and applied bacitracin to wounds on right medial forearm and right wrist. Right forearm opti foam nonadherant dressing with tube gauz to secure in place. Right wrist allevyn pink dressing
--- NOTE | 2024-02-14 13:00 | PC.NURSE ---
Found pt sitting at end of bed with brief on the floor and medical stool which pt states I was going to roll out of here and find a bathroom to use. Pt up to BSC with walker in room. He had a large bowel movement in his brief after stating Im having difficulty pooping because of the rock up their. Pt stating no one is bringing me water and they left me here with no way to call. Re oriented pt to call light. I brought him a 4th cup of water. He is becoming impulsive. I went to get pt a clean brief and patient was walking by himself in the room. I encouraged pt to wait for staff and re oriented him to his call light again. He continues to talk about his time in the [facility] [place] [facility] [place] while talking to him about his current needs. Pt in bed with lunch tray in front of him, call light at bedside, and his phone placed on the massage operator at nurses station.
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
[2024-02-14 21:29] LABS: Hemoglobin A1C% w Est Avg Glu 9.7 % (4.0-6.0)
[2024-02-14] MEDS: INSULIN GLARGINE 100 UNIT/ML 3ML PEN 10 UNIT SUBCUT (21:58)
[2024-02-14] MEDS: INSULIN LISPRO 100 UNIT/ML 3ML VIAL SUBCUT (22:00)
[2024-02-14] MEDS: DOCUSATE 100 MG CAPSULE PO (22:35)
[2024-02-14] MEDS: HYDROCODONE/ACET 5/325 TABLET 2 TAB PO (22:35)
[2024-02-15 06:41] LABS: BUN Creatinine Ratio 21.9 (6-22); Blood Urea Nitrogen 28 mg/dL (9-20); Carbon Dioxide 25 mmol/L (22-32); Chloride 102 mmol/L (98-107); Estimated Glomerular Filt Rate 56 mL/min (>60); Glucose 268 mg/dL (80-110); HEMOLYSIS < 15 (0-50); Sodium 132 mmol/L (137-145)
[2024-02-15 06:43] LABS: Add Manual Diff / Slide Review NO; Basophils Absolute Auto 0 /uL (0-100); Basophils Percent Auto 0.5 % (0-2); Eosinophils Absolute Auto 200 /uL (0-450); Eosinophils Percent Auto 2.2 % (2-4); Hematocrit 36.5 % (41-53); Hemoglobin 12.3 g/dL (13.5-17.5); Lymphocytes Absolute Auto 3300 /uL (1100-4500); Lymphocytes Percent Auto 40.2 % (25-40); Mean Corpuscular HGB Conc 33.7 % (30-36); Mean Corpuscular Hemoglobin 30.4 PG (26-34); Mean Corpuscular Volume 90.1 fL (80-100); Monocytes Absolute Auto 1100 /uL (0-900); Monocytes Percent Auto 13.1 % (3-14); Neutrophils Absolute Auto 3600 /uL (1500-7000); Platelet Count 119 X10^3/uL (150-400); Red Blood Cell Count 4.06 X10^6/uL (4.5-5.9); Red Cell Distribution Width 15.4 % (11.6-14.8); White Blood Cell Count 8.2 X10^3/uL (4.5-11.0)
[2024-02-15 08:00] VITALS: BP 147/84; PULSE 64; RESP 18; TEMP 36.1; O2SAT 98
[2024-02-15] MEDS: INSULIN LISPRO 100 UNIT/ML 3ML VIAL SUBCUT ×4 (08:45→20:53)
[2024-02-15] MEDS: ACETAMINOPHEN 325 MG TABLET 650 MG PO (08:47)
[2024-02-15] MEDS: TAMSULOSIN 0.4 MG CAPSULE PO (08:47)
[2024-02-15] MEDS: ASPIRIN EC 81 MG TABLET PO (08:47)
[2024-02-15] MEDS: DOCUSATE 100 MG CAPSULE PO ×2 (08:47→20:53)
[2024-02-15 12:00] VITALS: BP 119/74; PULSE 63; RESP 16; TEMP 36.1; O2SAT 95
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
--- NOTE | 2024-02-15 13:25 | PT.IPTN ---
Current Diagnoses Unspecified fracture of shaft of right fibula, initial encounter for closed fracture (02/14/24) Physical Therapy Treatment Note M2 PT-IP Current Condition Start: 02/14/24 12:19 Freq: Status: Active Protocol: Document 02/14/24 09:50 AB (Rec: 02/14/24 12:39 AB [id number]) Physical Therapy Current Condition Current Condition Evaluation Date 02/14/24 Treatment Diagnosis GLF; R tib-fib fx; difficulty in walking Onset Date 02/14/24 M3 PT-IP Subjective Start: 02/14/24 12:19 Freq: Status: Active Protocol: Document 02/15/24 14:02 TS (Rec: 02/15/24 14:08 TS [id number]) Subjective Physical Therapy Visit Type Type Treatment Note Visit Start Time 13:25 Visit Stop Time 13:55 Number of [employer] ENGINEER Visits 1 Physical Therapy Visit Comments Patient Comments Pt agreeable to PT. M4 PT-IP Mobility and Gait Start: 02/14/24 12:19 Freq: Status: Active Protocol: Document 02/15/24 14:02 TS (Rec: 02/15/24 14:08 TS [id number]) PT-Bed Mobility Assessment Supine to Sit Supine to Sit Standby Assistance Scooting Scooting to Edge of Bed Standby Assistance PT-Transfer Assessment Sit to and From Stand Sit to and from Stand Maximum Assistance,1 Person Assistance,Use of Upper Extremities Equipment Transfer Assistive Device Gait Belt,Front Wheeled Walker Orthotic/Prosthetic Devices or Brace: No Transfers Transfer Destination Chair Transfer Technique Stand Step Pivot Transfer Ability Level of Assist Minimal Assistance Comments Mobility Comments Pt aware of NWB on RLE. Supine to sit SBA with HOB elevated. STS with FWW MaxA, pt wbers partially through RLE, cues provided for NWB. He performs stand step pivot to chair Mani with cues for sequencing and maintaining NWB. Pt was left in chair, all needs met. Gait Assessment Comments Gait Comments stand step pivot PT-Balance Assessment Sitting Balance and Reactions Static Sitting Balance Ability Good Dynamic Sitting Balance Ability Good Standing Balance and Reactions Static Standing Balance Ability Fair Dynamic Standing Balance Ability Poor Device Used FWW M5 PT-IP Objective Assessments Start: 02/14/24 12:19 Freq: Status: Active Protocol: Document 02/14/24 09:50 AB (Rec: 02/14/24 12:39 AB [id number]) Orientation Orientation/Cognition Level of Alertness Alert Orientation Name Language Function Ability Hard of Hearing Safety Awareness Decreased Safety Awareness Memory Description 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,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 of Motion Lower Extremity ROM Assessment Right Impaired Impairments R ankle NT and c/o pain on RLE even with light touch Strength Lower Extremity Strength Assessment Right Impaired Ankle NT Sensation Assessment Sensation Gross Sensation WNL Muscle Tone Muscle Tone WNL Yes M6 PT-IP Treatment Start: 02/14/24 12:19 Freq: Status: Active Protocol: Document 02/15/24 14:02 TS (Rec: 02/15/24 14:08 TS [id number]) Physical Therapy Treatment Education Education Provided Weight Bearing Status,Safety M7 PT-IP Assessment and Plan Start: 02/14/24 12:19 Freq: Status: Active Protocol: Document 02/15/24 14:02 TS (Rec: 02/15/24 14:08 TS [id number]) PT Summary Assessment and Plan Potential Rehabilitation Potential Fair Summary Impairments Pain,ROM,Strength,Balance, Coordination,Sensation,Tone, Cognition,Bed Mobility, Transfers,Gait,Activity Tolerance Progress Towards Goals Slow Progress due to Pain Assessment Summary Enrike is making slow progress with his mobility. He requires cues for NWB on RLE when performing STS and transfer to the chair. At times he does not maintain NWB with mobility . Pt most likely to need 26/11 care at this time, pt will benefit from SNF. Goals Bed Mobility Goal Independent Transfer Goal Moderate Assistance,Front Wheeled Walker Gait Goal Moderate Assistance,Front Wheel Walker Gait Distance 20 Other Goals improve transfers and ambulation using FWW 50 ft CGA Days to Meet Goals 10 Frequency of Treatment Frequency Of Treatment Once a Day Treatment Plan Physical Therapy Treatment Plan Bed Mobility Training,Transfer Training,Gait Training, Therapeutic Exercise,Balance Retraining,Discharge Planning, Hot or Cold Pack,Neuromuscular Re-ed,Coordination Retraining ,Manual Therapy Precautions Brace RLE walker boot Weight Bearing Status Weight Bearing Status Non-Weight Bearing Allowed Weight Bearing Amount (enter % RLE NWB or #) (%) Recommendations To Nursing Amount of Assist Needed 1 Person Assist Discharge Recommendations PT Discharge Recommendations SNF Rehab Transportation Needs at Discharge Wheelchair/Cabulance
--- NOTE | 2024-02-15 15:32 | CM.DPNOTE ---
DCP Cont Medicaid salvage determiner care application faxed by Loree Murrell 02/13. Faxed request for expedited review today 02/14. According to Jaclyn at [facility], patient has been accepted for admission pending auth from Ash CONTRERAS. PASRR completed. Plan: Discharge to [facility] via wheelchair is anticipated pending insurance auth is secured. CM team following closely for coordination. JESSICA
[2024-02-15 16:46] VITALS: BP 142/80; PULSE 68; RESP 19; TEMP 36.2; O2SAT 99
[2024-02-15] MEDS: polyethylene glycoL 3350 17 GM POWD.PACK PO (17:12)
[2024-02-15 20:00] VITALS: BP 130/76; PULSE 71; RESP 18; TEMP 36.4; O2SAT 97
[2024-02-15] MEDS: SENNOSIDES 8.6 MG TABLET 17.2 MG PO (20:53)
[2024-02-15] MEDS: INSULIN GLARGINE 100 UNIT/ML 3ML PEN 10 UNIT SUBCUT (20:55)
[2024-02-16] VITALS: BP 106/64; PULSE 69; RESP 15; TEMP 36.4; O2SAT 96
[2024-02-16 04:00] VITALS: BP 143/80; PULSE 77; RESP 17; TEMP 36.4; O2SAT 97
[2024-02-16] MEDS: INSULIN LISPRO 100 UNIT/ML 3ML VIAL SUBCUT ×4 (07:57→20:44)
[2024-02-16 08:00] VITALS: BP 138/77; PULSE 78; RESP 16; O2SAT 95
[2024-02-16] MEDS: ACETAMINOPHEN 325 MG TABLET 650 MG PO (08:50)
[2024-02-16] MEDS: DOCUSATE 100 MG CAPSULE PO ×2 (08:50→20:43)
[2024-02-16] MEDS: ENOXAPARIN 40 MG/0.4 ML SYRINGE SUBCUT (08:50)
[2024-02-16] MEDS: ASPIRIN EC 81 MG TABLET PO (08:50)
[2024-02-16] MEDS: TAMSULOSIN 0.4 MG CAPSULE PO (08:50)
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
--- NOTE | 2024-02-16 11:51 | DI.RAD.S_ITS ---
PROCEDURE: XR CHEST 1V INDICATIONS: RLL rhonchi TECHNIQUE: One view of the chest was acquired. COMPARISON: [facility], CT, CT CHEST ABD PEL WO CON, 12/19/2023, 12:15. [facility], CR, XR CHEST 1V, 01/31/2023, 16:49. FINDINGS: Surgical changes and devices: None. Lungs and pleura: An incomplete inspiratory result is noted, causing a crowded appearance to the lung markings. No focal infiltrates are seen. No pneumothorax or significant pleural effusions are seen. Mediastinum: Mediastinal contours appear normal. Heart size is normal. Atherosclerotic calcification of the aortic arch is noted. Bones and chest wall: No suspicious bony lesions. Age-appropriate bony degenerative changes are seen. Mild dextroconvex scoliotic curvature is seen. Overlying soft tissues appear unremarkable. IMPRESSION: Low lung volumes, without an acute abnormality seen by plain film. Dictated by: Jun Siddiqui M.D. on 02/16/2024 at 11:40 Approved by: Jun Siddiqui M.D. on 02/16/2024 at 11:41
[2024-02-16 12:00] VITALS: BP 153/84; PULSE 80; RESP 16; TEMP 36.9; O2SAT 99
--- NOTE | 2024-02-16 12:39 | PT-IP ANOTE ---
PT checks in on pt several times over 30 minutes as he has a visitor. Pt's sister is visiting and pt has not eaten lunch. They will con't to visit and pt would like to eat lunch. This is PT's last patient of the day and so will con't efforts next date. Recommend OOB to chair with nsg assist.
[2024-02-16 16:00] VITALS: BP 143/68; PULSE 92; RESP 17; TEMP 36.9; O2SAT 98
[2024-02-16] MEDS: METFORMIN HCL 500 MG TABLET 1000 MG PO (16:41)
[2024-02-16 19:00] VITALS: BP 167/77; PULSE 77; RESP 18; TEMP 36.7; O2SAT 99
[2024-02-16] MEDS: SENNOSIDES 8.6 MG TABLET 17.2 MG PO (20:43)
[2024-02-16] MEDS: glipiZIDE 5 MG TABLET PO (20:43)
[2024-02-16] MEDS: INSULIN GLARGINE 100 UNIT/ML 3ML PEN 20 UNIT SUBCUT (20:43)
[2024-02-16] MEDS: polyethylene glycoL 3350 17 GM POWD.PACK PO (21:48)
[2024-02-17 03:00] VITALS: BP 111/67; PULSE 71; RESP 18; TEMP 36.3; O2SAT 97
[2024-02-17 05:37] LABS: Add Manual Diff / Slide Review NO; Basophils Absolute Auto 0 /uL (0-100); Basophils Percent Auto 0.6 % (0-2); Eosinophils Absolute Auto 200 /uL (0-450); Eosinophils Percent Auto 2.1 % (2-4); Hematocrit 37.3 % (41-53); Hemoglobin 12.5 g/dL (13.5-17.5); Lymphocytes Absolute Auto 2800 /uL (1100-4500); Lymphocytes Percent Auto 36.5 % (25-40); Mean Corpuscular HGB Conc 33.4 % (30-36); Mean Corpuscular Hemoglobin 30.4 PG (26-34); Mean Corpuscular Volume 90.9 fL (80-100); Monocytes Absolute Auto 800 /uL (0-900); Monocytes Percent Auto 11.2 % (3-14); Neutrophils Absolute Auto 3800 /uL (1500-7000); Neutrophils Percent Auto 49.6 % (50-75); Platelet Count 143 X10^3/uL (150-400); Red Blood Cell Count 4.11 X10^6/uL (4.5-5.9); White Blood Cell Count 7.6 X10^3/uL (4.5-11.0)
[2024-02-17 05:48] LABS: Alanine Aminotransferase 16 IU/L (<50); Albumin 3.3 g/dL (3.5-5.0); Albumin Globulin Ratio 1.1 (1.0-2.8); Alkaline Phosphatase 79 U/L (38-126); Aspartate Aminotransferase 20 IU/L (17-59); BUN Creatinine Ratio 23.5 (6-22); Bilirubin Total 0.8 mg/dL (0.2-1.3); Blood Urea Nitrogen 28 mg/dL (9-20); Carbon Dioxide 24 mmol/L (22-32); Chloride 105 mmol/L (98-107); Estimated Glomerular Filt Rate > 60 mL/min (>60); Globulin 2.9 g/dL (1.7-4.1); Glucose 149 mg/dL (80-110); HEMOLYSIS < 15 (0-50); Potassium 4.2 mmol/L (3.4-5.1); Sodium 135 mmol/L (137-145); Total Protein 6.2 g/dL (6.3-8.2)
[2024-02-17] MEDS: INSULIN LISPRO 100 UNIT/ML 3ML VIAL SUBCUT ×3 (07:40→16:53)
[2024-02-17] MEDS: METFORMIN HCL 500 MG TABLET 1000 MG PO ×2 (07:41→16:53)
[2024-02-17 08:00] VITALS: BP 118/75; PULSE 73; RESP 15; TEMP 36.2; O2SAT 97
--- NOTE | 2024-02-17 08:18 | PM.PN.1 ---
Subjective Subjective Date Patient Seen: 02/17/24 Time Patient Seen: 08:18 Interval history: Patient seen and evaluated this morning. He says he is doing well. Struggled with some constipation yesterday and last night he says that is much better he is eating well pain is well controlled still having some difficulty with ambulation but he says that is improving. He wonders about discharge. Disease finding it difficult previously staying with his nephew that maybe not an alternative. Working with geriatric social work professor. Exam Vital Signs (past 8 hours): - 02/17/24 03:00 Temperature 97.3 F L Pulse Rate 71 Respiratory Rate 18 Blood Pressure 111/67 Pulse Oximetry 97 Oxygen Flow Rate 0 Oxygen Delivery Method Room Air Oxygen Flow Rate 0 Narrative Exam Narrative: Gen.: Alert no apparent distress HEENT: Pupils equal round and reactive or mucosa is moist Cardio: S1-S2 regular rate and rhythm Respiratory: Lungs are clear no wheezes or crackles Abdomen: Soft nontender no rebound or guarding Extremities: Warm dry perfused Objective Labs 02/17/24 05:10 02/17/24 05:10 Labs: Laboratory Results - last 24 hr 02/17/24 05:10 WBC 7.6 RBC 4.11 L Hgb 12.5 L Hct 37.3 L MCV 90.9 MCH 30.4 MCHC 33.4 RDW 15.0 H Plt Count 143 L Neut % (Auto) 49.6 L Lymph % (Auto) 36.5 [place] % (Auto) 11.2 Eos % (Auto) 2.1 Baso % (Auto) 0.6 Neut # (Auto) 3800 Lymph # (Auto) 2800 [place] # (Auto) 800 Eos # (Auto) 200 Baso # (Auto) 0 Sodium 135 L Potassium 4.2 Chloride 105 Carbon Dioxide 24 BUN 28 H Creatinine 1.19 Estimated GFR > 60 BUN/Creatinine Ratio 23.5 H Glucose 149 H D Calcium 11.0 H Total Bilirubin 0.8 AST 20 ALT 16 Alkaline Phosphatase 79 Total Protein 6.2 L Albumin 3.3 L Globulin 2.9 Albumin/Globulin Ratio 1.1 PFSH Medical History Emphysematous cystitis Expressive aphasia Bloody stool TIA (transient ischemic attack) Metatarsal fracture History of transient ischemic attack Type 2 diabetes mellitus without complications History of prostatitis Nephrolithiasis Surgical History H/O hernia repair Social History household members: family Smoking Status: Former smoker alcohol intake: former additional social history: He quit smoking over 20 years ago. 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 He plans to move to [place] within a couple of days. He denies alcohol use. Assessment & Plan Assessment and plan (1) Closed fibular fracture: Status: Acute Plan Closed right fibular fracture. Patient receiving PT OT pain control. Working on ambulation. Working on safe discharge plan. Generalized weakness with ground level fall and failure to thrive. Continue with nutrition. Counseling working with physical therapy. floor worker transfer bay for evaluation for long-term safe discharge plan. Diabetes type 2 poorly controlled. Continue with metformin insulin sliding scale blood sugars have been good. Continue with metformin. Diabetic diet. Hypertension. Patient will be continued on his lisinopril blood pressures are up and down. May restart amlodipine if blood pressures remain high. Hyperlipidemia. Patient on a statin we will continue his statin. BPH. No signs of urinary obstruction. Patient will be continued on Flomax Constipation. Patient is struggling with constipation this has improved after yesterday continue with medication for this Discharge plan. [facility] facility with medical physicist helping with this. DVT prophylaxis Time-Based Coding :: [TOTAL MINUTES] spent with patient and on the chart (including review of chart, obtaining history, exam, reviewing outside data, placing orders, documenting exam and treatment plan, and counseling patient) on [DATE]. Quality VTE Deep Vein Thrombosis/Pulmonary Embolism Present on Admission: No
[2024-02-17] MEDS: ENOXAPARIN 40 MG/0.4 ML SYRINGE SUBCUT (08:36)
[2024-02-17] MEDS: polyethylene glycoL 3350 17 GM POWD.PACK PO (08:36)
[2024-02-17] MEDS: DOCUSATE 100 MG CAPSULE PO ×2 (08:37→22:18)
[2024-02-17] MEDS: glipiZIDE 5 MG TABLET PO ×2 (08:37→22:17)
[2024-02-17] MEDS: TAMSULOSIN 0.4 MG CAPSULE PO (08:37)
[2024-02-17] MEDS: ASPIRIN EC 81 MG TABLET PO (08:37)
[2024-02-17 08:38] VITALS: BP 118/75; PULSE 73
[2024-02-17] MEDS: lisinopriL 10 MG TABLET PO (08:38)
[2024-02-17 12:00] VITALS: BP 135/75; PULSE 77; RESP 15; TEMP 36.4; O2SAT 97
--- NOTE | 2024-02-17 13:50 | CM.DPC ---
Notified by [facility] they have not heard back re: the insurance auth for this patient to admit. Will continue to follow for auth. RACH Osei
--- NOTE | 2024-02-17 14:45 | OT.IP.TRT ---
Current Diagnoses Unspecified fracture of shaft of right fibula, initial encounter for closed fracture (02/14/24) Unspecified fracture of shaft of unspecified fibula, initial encounter for closed fracture (02/14/24) Occupational Therapy Treatment Note M2 OT-IP Current Condition Start: 02/14/24 09:39 Freq: Status: Active Protocol: Document 02/14/24 09:42 CCC (Rec: 02/14/24 10:09 CCC [id number]) Occupational Therapy Current Condition Current Condition Evaluation Date 02/14/24 Treatment Diagnosis GLF, suspected non displaced right distal fibular tip fx Diagnosis Onset Date 02/14/24 M3 OT- IP Subjective and Pain Start: 02/14/24 09:39 Freq: Status: Active Protocol: Document 02/17/24 15:17 CGR (Rec: 02/17/24 15:23 CGR [id number]) OT- Subjective Occupational Therapy Visit Type Type Treatment Note Visit Start Time 14:35 Visit Stop Time 14:45 Notes Partial co-treat with P.T. M4 OT- IP ADL's Start: 02/14/24 09:39 Freq: Status: Active Protocol: Document 02/17/24 15:17 CGR (Rec: 02/17/24 15:23 CGR [id number]) OT [id number] Comments OT Self-Feeding Comments not meal time OT ADL-Grooming Comments OT Grooming Comments pt declined, performed this AM OT ADL-Oral Care Comments Oral Care Comments pt declined, performed this AM OT ADL-Dressing Comments OT Dressing Comments not performed OT ADL-Toileting General Evaluation Toileting Ability Maximum Assistance Areas Needing Assistance Manage Clothing,Perform Perineal Hygiene Comments OT Toileting Comments Pt had BM seated on BSC. Pt standing with nursing assisting with max to total a for back pericare when OT entered. Pt is standing with weight through the RLE, nursing and therapy educating pt not to put weight through the leg. OT ADL-Bathing Comments OT Bathing Comments not performed M5 OT- IP IADL's Start: 02/14/24 09:39 Freq: Status: Active Protocol: Document 02/14/24 09:42 CCC (Rec: 02/14/24 10:09 CCC [id number]) OT-Instrumental Activities of Daily Living Deficits IADL Deficits Identified Deficits Home Safety Awareness Awareness of Need for Assistance at Home Good Awareness Home Safety Comments Pt is well aware that he is not able to care for himself and open to going to skilled rehab. Medication Management Medication Management Comments Pt states having dififculty to manage his medications especially as he has lot weight recently. Money Management Money Management Comments Pt will benefit from assist. Meal Preparation Meal Preparation Comments Pt will need assist. Transport Corps Officer Transport Corps Officer Comments Pt will need assist. M6 OT- IP Functional Cognition Start: 02/14/24 09:39 Freq: Status: Active Protocol: Document 02/14/24 09:42 [facility] (Rec: 02/14/24 10:09 [facility] [id number]) Cognitive Factors Limiting Selfcare Function Cognitive Ability Level of Alertness Alert Patient Orientation Name,Place,Situation Attention Span Ability Capable of Focused Attention, Unable to Focus,Unable to Sustain Attention Ability to Follow Commands Able to Follow One Step Commands with Increased Time, Able to Follow One Step Commands with Repetition Cognitive Comments Cognitive Assessment Comments Pt is very talkative, distracted, and needing concrete cues to follow at this time. Pt's drill press tender states pt is not at his cognitive baseline. OT- Vision and Hearing OT- Hearing Assessment OT- Hearing Assessment Hearing Impaired OT- Vision Assessment Visual Acuity Glasses For Reading Visual Attentiveness WFL Occular Pursuits WFL Visual Convergence WFL Visual [place] WFL Diplopia Absent M7 OT- IP Mobility and Balance Start: 02/14/24 09:39 Freq: Status: Active Protocol: Document 02/17/24 15:17 CGR (Rec: 02/17/24 15:23 CGR [id number]) OT- Bed Mobility Assessment Sit to Supine Sit to Supine Assist Standby Assistance Scooting Scooting Up and Down in Bed Standby Assistance OT-Transfer Assessment Sit to and From Stand Sit to and from Stand Moderate Assistance,2 Person Assistance Transfers Transfer Ability Moderate Assistance,2 Person Assistance Technique Transfer Destination Bed,Bedside Commode Transfer Technique Stand Step Pivot Devices Transfer Assistive Devices Gait Belt,Front Wheeled Walker Comments Mobility Comments Pt is unable to perform transfer with NWB and is putting full weight through his RLE with tranfers dispite educating pt not to put weight through the foot. OT- Balance Assessment Sitting Balance and Reactions Static Sitting Balance Ability Good Dynamic Sitting Balance Ability Good M8 OT- IP Objective Assessments Start: 02/14/24 09:39 Freq: Status: Active Protocol: Document 02/14/24 09:42 [facility] (Rec: 02/14/24 10:09 CCC [id number]) OT Strength Comments Strength Comments WFL for available ROM. OT Sensation Assessment Comments Summary Comments Intact for light touch. M9 OT- IP Assessment and Plan Start: 02/14/24 09:39 Freq: Status: Active Protocol: Document 02/17/24 15:17 CGR (Rec: 02/17/24 15:23 CGR [id number]) OT Summary Assessment and Plan Potential Rehabilitation Potential Good Analytic Complexity at Evaluation Moderate Summary OT Impairments Pain,Strength,Balance, Functional Cognition, Functional Mobility,Grooming, Dressing,Toileting,Bathing, Toilet Transfers,Shower Transfers,Activity Tolerance Progress Towards Goals Slow Progress due to Pain,Slow Progress due to Medical Issues,Slow Progress due to Activity Tolerance Assessment Summary Pt is unable to follow WB instructions in todays session and declines further activities. Pt is kind and rather talkative and will need SNF upon discharge. P.T. attempting to get WB status changed given type of fx. Goals Self-Feeding Goal Independent Grooming Goal Independent Dressing Goal Independent Toileting Goal Independent Bathing Goal Standby Assistance Toilet Transfer Goal Independent Shower Transfer Goal Standby Assistance Days to Meet Goals 25 Frequency of Treatment Other frequency 5x/week Treatment Plan OT Treatment Plan ADL Training,Functional Cognition Training,Functional Mobility,Patient/Family Education,Discharge Planning Other Treatment Recommendations and Next Practice LB dressisngn Treatment Focus equipment, SLUMS as pt clears Discharge Recommendations OT Discharge Recommendations SNF Rehab Transportation Needs at Discharge Wheelchair/Cabulance
--- NOTE | 2024-02-17 15:10 | PT.IPTN ---
Current Diagnoses Unspecified fracture of shaft of right fibula, initial encounter for closed fracture (02/14/24) Unspecified fracture of shaft of unspecified fibula, initial encounter for closed fracture (02/14/24) Physical Therapy Treatment Note M2 PT-IP Current Condition Start: 02/14/24 12:19 Freq: Status: Active Protocol: Document 02/14/24 09:50 AB (Rec: 02/14/24 12:39 AB [id number]) Physical Therapy Current Condition Current Condition Evaluation Date 02/14/24 Treatment Diagnosis GLF; R tib-fib fx; difficulty in walking Onset Date 02/14/24 M3 PT-IP Subjective Start: 02/14/24 12:19 Freq: Status: Active Protocol: Document 02/17/24 14:40 MB (Rec: 02/17/24 15:06 MB [id number]) Subjective Physical Therapy Visit Type Type Treatment Note Visit Start Time 14:40 Visit Stop Time 14:50 Number of TYPING SECTION CHIEF Visits 0 Physical Therapy Visit Comments Patient Comments Pt standing with nsg with RW after toileting and dependent for hygiene and pt standing fully on right leg. Therapy Pain Assessment Pain When Pain Assessed During Mobility Pain Present Pain Present Denied Pain M4 PT-IP Mobility and Gait Start: 02/14/24 12:19 Freq: Status: Active Protocol: Document 02/17/24 14:40 MB (Rec: 02/17/24 15:06 MB [id number]) PT-Bed Mobility Assessment Sit to Supine Sit to Supine Standby Assistance Scooting Scooting to Edge of Bed Standby Assistance Scooting Up and Down in Bed Standby Assistance PT-Transfer Assessment Sit to and From Stand Sit to and from Stand Moderate Assistance,2 Person Assistance,Use of Upper Extremities Equipment Transfer Assistive Device Gait Belt,Front Wheeled Walker Orthotic/Prosthetic Devices or Brace: No Transfers Transfer Destination Chair Transfer Technique Stand Step Pivot Transfer Ability Level of Assist Moderate Assistance,2 Person Assistance,Use of Upper Extremities Comments Mobility Comments Pt is unable to demonstrate NWB for standing or stepping with RW and he tends to step- to and fully weight bear through right leg. Gait Assessment Comments Gait Comments Stand step pivot as pt cannot follow WB PT-Balance Assessment Sitting Balance and Reactions Static Sitting Balance Ability Good Dynamic Sitting Balance Ability Good Standing Balance and Reactions Static Standing Balance Ability Poor Dynamic Standing Balance Ability Poor Device Used FWW M5 PT-IP Objective Assessments Start: 02/14/24 12:19 Freq: Status: Active Protocol: Document 02/14/24 09:50 AB (Rec: 02/14/24 12:39 AB [id number]) Orientation Orientation/Cognition Level of Alertness Alert Orientation Name Language Function Ability Hard of Hearing Safety Awareness Decreased Safety Awareness Memory Description 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,Dispersion Mixer Impaired Gross Range of Motion Lower Extremity ROM Assessment Right Impaired Impairments R ankle NT and c/o pain on RLE even with light touch Strength Lower Extremity Strength Assessment Right Impaired Ankle NT Sensation Assessment Sensation Gross Sensation WNL Muscle Tone Muscle Tone WNL Yes M6 PT-IP Treatment Start: 02/14/24 12:19 Freq: Status: Active Protocol: Document 02/17/24 14:40 MB (Rec: 02/17/24 15:06 MB [id number]) Physical Therapy Treatment Education Education Provided Weight Bearing Status,Safety Other Treatments Other Treatment Performed Pt is unable to stay on task and follow commands for LE exercises in sitting M7 PT-IP Assessment and Plan Start: 02/14/24 12:19 Freq: Status: Active Protocol: Document 02/17/24 14:40 MB (Rec: 02/17/24 15:06 MB [id number]) PT Summary Assessment and Plan Potential Rehabilitation Potential Poor Status of Condition at Evaluation Evolving Summary Impairments Pain,ROM,Strength,Balance, Coordination,Sensation,Tone, Cognition,Bed Mobility, Transfers,Gait,Activity Tolerance Progress Towards Goals Slow Progress - Other Assessment Summary Enrike is distractable, con't to talk and is unable to follow commands for NWB or sitting LE exercises today. Given pt has distal fibular fracture and a boot in room, he might mobilize better and safer if WB status were increased. PT calls Dr. Love's office and he is unavailable. At this time, keeping NWB in pt with confusion, decreased insight, distractability, poor command- following and poor safety awareness may not be possible unless pt is limited to slide board or stand pivot transfers . Goals Bed Mobility Goal Independent Transfer Goal Moderate Assistance,Front Wheeled Walker Gait Goal Moderate Assistance,Front Wheel Walker Gait Distance 20 Other Goals improve transfers and ambulation using FWW 50 ft CGA Days to Meet Goals 5 Frequency of Treatment Frequency Of Treatment Once a Day Treatment Plan Physical Therapy Treatment Plan Bed Mobility Training,Transfer Training,Gait Training, Therapeutic Exercise,Balance Retraining,Discharge Planning, Hot or Cold Pack,Neuromuscular Re-ed,Coordination Retraining ,Manual Therapy Precautions Brace RLE walker boot Weight Bearing Status Weight Bearing Status Non-Weight Bearing Allowed Weight Bearing Amount (enter % RLE NWB or #) (%) Recommendations To Nursing Amount of Assist Needed 2 Person Assist Discharge Recommendations PT Discharge Recommendations SNF Rehab Transportation Needs at Discharge Wheelchair/Cabulance
[2024-02-17 16:00] VITALS: BP 138/66; PULSE 76; RESP 17; TEMP 36.3; O2SAT 95
[2024-02-17 20:00] VITALS: BP 153/79; PULSE 73; RESP 16; TEMP 36.4; O2SAT 100
[2024-02-17] MEDS: SENNOSIDES 8.6 MG TABLET 17.2 MG PO (22:17)
[2024-02-17] MEDS: INSULIN GLARGINE 100 UNIT/ML 3ML PEN 20 UNIT SUBCUT (22:22)
[2024-02-18 04:00] VITALS: BP 169/79; PULSE 84; RESP 24; TEMP 36.8; O2SAT 97
--- NOTE | 2024-02-18 07:24 | PT-IP ANOTE ---
Received updated WB order for pt with nondisplaced right distal fibular fracture: WBAT in boot and PT updated in worklist for future treatments and pt training.
--- NOTE | 2024-02-18 07:31 | PM.PN.1 ---
Subjective Subjective Date Patient Seen: 02/18/24 Time Patient Seen: 07:45 Interval history: Resting comfortably in bed this morning. Reports medial aspect of right ankle somewhat sore, but thinks he is healing well overall. Denies other complaints. Exam Vital Signs (past 8 hours): - 02/18/24 04:00 Temperature 98.2 F Pulse Rate 84 Respiratory Rate 24 Blood Pressure 169/79 H Pulse Oximetry 97 Oxygen Flow Rate 0 Oxygen Delivery Method Room Air Oxygen Flow Rate 0 Narrative Exam Narrative: General: Pleasant, NAD HEENT: NC/AT, EOMI, moist membranes CV: RRR, normal S1-S2, no m/g/r Resp: CTAB, comfortable WOB Abd: Soft, NTND, +BS Ext: RLE w/mild deformity of ankle that is TTP, able to wiggle toes Skin: Superficial abrasions on R ankle and foot covered by soft bandages Neuro: A&O x3, moves all extremities, no focal deficits Objective Labs 02/17/24 05:10 02/17/24 05:10 [facility] Medical History Emphysematous cystitis Expressive aphasia Bloody stool TIA (transient ischemic attack) Metatarsal fracture History of transient ischemic attack Type 2 diabetes mellitus without complications History of prostatitis Nephrolithiasis Surgical History H/O hernia repair Social History household members: family Smoking Status: Former smoker alcohol intake: former additional social history: He quit smoking over 20 years ago. 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 He plans to move to [place] within a couple of days. He denies alcohol use. Assessment & Plan Assessment and plan (1) Type 2 diabetes mellitus: Status: Acute (2) Hypertension: Problem details: 2023 10-year ASCVD risk 53% untreated (optimal 23% w/statin + lower BP) Qualifiers: Hypertension type: primary hypertension Qualified Code(s): I10 - Essential (primary) hypertension Status: Acute (3) Closed fibular fracture: Status: Acute Assessment & Plan narrative: #generalized weakness #ground level fall #failure to thrive #closed right fibular fracture Continues to have significant pain with weight-bearing and PT recommening nonweightbearing status with SNF rehab due to lack of sufficient support at home. Patient is self-pay so may take some time to find appropriate facility. -PT/OT eval daily -CM exploring safe dc options #uncontrolled diabetes #medication noncompliance Poorly controlled with most recent A1c 12.4% 2 months ago. Has apparently stopped taking all diabetic medications due to how they make him feel. Initial glucose 330 on arrival to ER, anion gap 7 indicating no DKA. -home metformin 1000 mg b.i.d. -home glipizide 5 mg b.i.d. -basal glargine 20 units q.h.s. -sensitive SSI -carb controlled diet #HTN -increase lisinopril 20 mg daily #HLD #continue atorvastatin 40 mg daily #BPH -continue home tamsulosin Diet: Carb controlled DVT ppx: Lovenox Code: DNR PCP: Jeff Dispo: SNF vs LTC pending insurance authorization Time-Based Coding :: 25 minutes spent with patient and on the chart (including review of chart, obtaining history, exam, reviewing outside data, placing orders, documenting exam and treatment plan, and counseling patient) on 02/18/2024. Quality VTE Deep Vein Thrombosis/Pulmonary Embolism Present on Admission: No
[2024-02-18 08:00] VITALS: BP 149/84; PULSE 85; RESP 18; TEMP 35.9; O2SAT 95
[2024-02-18] MEDS: ENOXAPARIN 40 MG/0.4 ML SYRINGE SUBCUT (08:40)
[2024-02-18 08:41] VITALS: BP 149/84; PULSE 85
[2024-02-18] MEDS: glipiZIDE 5 MG TABLET PO (08:41)
[2024-02-18] MEDS: ASPIRIN EC 81 MG TABLET PO (08:41)
[2024-02-18] MEDS: TAMSULOSIN 0.4 MG CAPSULE PO (08:41)
[2024-02-18] MEDS: lisinopriL 10 MG TABLET 20 MG PO (08:41)
[2024-02-18] MEDS: DOCUSATE 100 MG CAPSULE PO (08:41)
[2024-02-18] MEDS: METFORMIN HCL 500 MG TABLET 1000 MG PO (08:41)
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
[2024-02-18] MEDS: INSULIN LISPRO 100 UNIT/ML 3ML VIAL SUBCUT (12:10)
--- NOTE | 2024-02-18 13:04 | CM.DPC ---
DCP Cont. Reviewed EMR and team rounds for status updates. Pt has been medically cleared for SNF rehab d/c, [facility] will be transporting him at 1:00pm. D/c clinicals have been faxed, no further d/c needs identified at this time.
== END 2024-02-18 13:50 | DRG 563 ==
LOC: ED 02-14 17:11 → AC 02-14 17:13
PROVIDERS: Emergency Medicine; Admitting Provider Family Medicine; Emergency Provider Emergency Medicine; Family Provider Nurse Practitioner; PCP Family Medicine; Referring Provider Emergency Medicine; Visit Provider Family Medicine
DX: S82.831A Other fracture of upper and lower end of right fibula, initial encounter for closed fracture (principal); W18.30XA Fall on same level, unspecified, initial encounter; R62.7 Adult failure to thrive; E11.65 Type 2 diabetes mellitus with hyperglycemia; I10 Essential (primary) hypertension; N40.0 Benign prostatic hyperplasia without lower urinary tract symptoms; Z66 Do not resuscitate; E78.5 Hyperlipidemia, unspecified; K59.00 Constipation, unspecified; R91.8 Other nonspecific abnormal finding of lung field; R53.1 Weakness; T38.3X6A Underdosing of insulin and oral hypoglycemic [antidiabetic] drugs, initial encounter; Z87.891 Personal history of nicotine dependence; Z86.73 Personal history of transient ischemic attack (TIA), and cerebral infarction without residual deficits; Z68.25 Body mass index [BMI] 25.0-25.9, adult; Z80.1 Family history of malignant neoplasm of trachea, bronchus and lung; Z79.84 Long term (current) use of oral hypoglycemic drugs; Z91.128 Patient's intentional underdosing of medication regimen for other reason
CPT/HCPCS: 36415; 70450; 71045; 72125; 80048; 80053; 81001; 82962; 83036; 85025; 97162; 97166; 97530; 97535; 99222; 99232; 99239; 99284; J1650; J1815

== ENCOUNTER → 2024-05-27 10:58 | Outpatient (CLI) | payer MEDICARE, SELFPAY ==
[2024-05-04 13:11] VITALS: BMI 25.7
[2024-05-27 11:53] LABS: Hematocrit 36.9 % (41-53); Hemoglobin 12.5 g/dL (13.5-17.5); Mean Corpuscular HGB Conc 33.9 % (30-36); Mean Corpuscular Hemoglobin 30.2 PG (26-34); Mean Corpuscular Volume 89.2 fL (80-100); Platelet Count 134 X10^3/uL (150-400); Red Blood Cell Count 4.13 X10^6/uL (4.5-5.9); Red Cell Distribution Width 14.9 % (11.6-14.8); White Blood Cell Count 7.7 X10^3/uL (4.5-11.0)
[2024-05-27 12:06] LABS: Hemoglobin A1C% w Est Avg Glu 7.1 % (4.0-6.0)
[2024-05-27 12:19] LABS: Alanine Aminotransferase 19 IU/L (<50); Albumin 3.9 g/dL (3.5-5.0); Albumin Globulin Ratio 1.4 (1.0-2.8); Alkaline Phosphatase 86 U/L (38-126); Aspartate Aminotransferase 24 IU/L (17-59); BUN Creatinine Ratio 13.3 (6-22); Bilirubin Total 0.6 mg/dL (0.2-1.3); Blood Urea Nitrogen 16 mg/dL (9-20); Carbon Dioxide 25 mmol/L (22-32); Chloride 107 mmol/L (98-107); Cholesterol 106 mg/dL (140-199); Estimated Glomerular Filt Rate > 60 mL/min (>60); Globulin 2.8 g/dL (1.7-4.1); Glucose 147 mg/dL (80-110); HDL Cholesterol 50 mg/dL (40-60); HEMOLYSIS < 15 (0-50); LDL Cholesterol Calculated 46 mg/dL (<100); Potassium 4.4 mmol/L (3.4-5.1); Sodium 138 mmol/L (137-145); Total Protein 6.7 g/dL (6.3-8.2); Triglycerides 50 mg/dL (35-150)
[2024-05-27 12:28] LABS: Vitamin D 25 Hydroxy (D3) 21.1 ng/mL (30.0-100.0)
[2024-05-28 13:10] LABS: Ionized Calcium 6.6 mg/dL (4.5-5.6)
[2024-05-28 21:36] LABS: Calcium 11.7 mg/dL (8.6-10.2); Parathyroid Hormone, Intact 136 pg/mL (15-65)
== END ==
PROVIDERS: Family Provider Nurse Practitioner; PCP Family Medicine; Referring Provider Family Medicine; Visit Provider Family Medicine
DX: E11.9 Type 2 diabetes mellitus without complications (principal); E21.0 Primary hyperparathyroidism; E83.52 Hypercalcemia; E55.9 Vitamin D deficiency, unspecified; I10 Essential (primary) hypertension
CPT/HCPCS: 36415; 80053; 80061; 82306; 82310; 82330; 83036; 83970; 85027

== ENCOUNTER → 2024-06-03 08:06 | Outpatient (CLI) | payer MEDICARE, SELFPAY ==
[2024-05-04 13:11] VITALS: BMI 25.7
[2024-06-03 09:25] LABS: Calcium 24 Hour Urine 225 mg/day (100-300); Calcium Urine Random 16.7 mg/dL; Collection Time Urine 24 Hours; Total Volume Urine 1350 mL
== END ==
PROVIDERS: Family Provider Nurse Practitioner; PCP Family Medicine; Referring Provider Family Medicine; Visit Provider Family Medicine
DX: E21.0 Primary hyperparathyroidism (principal)
CPT/HCPCS: 82340

== ENCOUNTER 2024-11-04 11:54 | Inpatient (IN) | payer MEDICARE, SELFPAY ==
[2024-05-04 13:11] VITALS: BMI 25.7
[2024-11-04] VITALS (16 sets, daily range): BP systolic 139–193; BP diastolic 62–138; PULSE 78–90; RESP 16–25; TEMP 36.2–36.9; O2SAT 95–100; BMI 27.0
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
--- NOTE | 2024-11-04 12:35 | EKG_ITS ---
[facility] [address] [address] Test Date: 2024-11-04 Pat Name: Haresh Pizarro Department: [facility] Room: Gender: Male [employer]: : 1940 Requested By: Order Number: [id number] Reading MD: Ramos Duncan MD Measurements Intervals Valentine Rate: 84 P: 57 ID: [id number] QRS: 48 QRSD: 98 T: 44 QT: 392 QTc: 463 Interpretive Statements Normal sinus rhythm Electronically Signed On 11-05-2024 7:30:23 PDT by Ramos Duncan MD
[2024-11-04] MEDS: TET,DIPH,PERTUSS(ACELL),VAC/PF 0.5 ML SYRINGE IM (12:37)
[2024-11-04 13:03] LABS: UR Morphine/Opiate cutoff 300 Negative (Negative); Ur Specific Gravity Normal (Normal); Urine MDMA Negative (Negative); Urine Methamphetamines Negative (Negative); Urine Tetrahydrocannabinol Negative (Negative); Urine Tricyclic Antidepressant Negative (Negative)
[2024-11-04 13:10] LABS: Add Manual Diff / Slide Review NO; Hematocrit 39.3 % (41-53); Hemoglobin 13.1 g/dL (13.5-17.5); Lymphocytes Absolute Auto 800 /uL (1100-4500); Mean Corpuscular HGB Conc 33.5 % (30-36); Mean Corpuscular Hemoglobin 30.3 PG (26-34); Mean Corpuscular Volume 90.4 fL (80-100); Platelet Count 137 X10^3/uL (150-400)
[2024-11-04 13:25] LABS: Alanine Aminotransferase 44 IU/L (<50); Albumin 4.2 g/dL (3.5-5.0); Albumin Globulin Ratio 1.3 (1.0-2.8); Alkaline Phosphatase 132 U/L (38-126); Blood Urea Nitrogen 21 mg/dL (9-20); Calcium 10.8 mg/dL (8.4-10.2); Carbon Dioxide 21 mmol/L (22-32); Chloride 100 mmol/L (98-107); Estimated Glomerular Filt Rate > 60 mL/min (>60); Ethanol (ETOH) < 10 mg/dL (<10); Globulin 3.2 g/dL (1.7-4.1); Glucose 319 mg/dL (70-99); HEMOLYSIS < 15 (0-50); Lipase 162 U/L (23-300); Potassium 4.0 mmol/L (3.4-5.1); Sodium 133 mmol/L (137-145); Total Protein 7.4 g/dL (6.3-8.2)
[2024-11-04 13:26] LABS: Lactate (Lactic Acid) 3.4 mmol/L (0.7-2.1)
[2024-11-04 13:52] LABS: INR 1.0 (0.9-1.3); Prothrombin Time 11.3 SECONDS (9.4-12.5)
[2024-11-04 13:55] LABS: PTT Partial Thromboplastin Tim 25 SECONDS (25.1-36.5)
[2024-11-04] MEDS: BACITRACIN OINT 0.9 GM PCKT 3 APPLIC TOP (14:00)
[2024-11-04 14:39] LABS: Reflexed Lactate in 2 Hours Y
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
[2024-11-04 15:24] LABS: Lactate 2HR (Lactic Acid Rflx) 2.4 mmol/L (0.7-2.1)
--- NOTE | 2024-11-04 15:31 | PC.WOUNDPHOT ---
R wrist R hand R elbow R shoulder R knee L knee L wrist L elbow L forearm
[2024-11-04] MEDS: OXYCODONE IR 10 MG TABLET PO ×2 (17:01→21:09)
[2024-11-04] MEDS: INSULIN REGULAR 100 UNIT/ML 3 ML VIAL SUBCUT ×2 (17:02→21:10)
[2024-11-04 17:10] LABS: Blood Urea Nitrogen 21 mg/dL (9-20); Calcium 10.8 mg/dL (8.4-10.2); Carbon Dioxide 23 mmol/L (22-32); Chloride 102 mmol/L (98-107); Estimated Glomerular Filt Rate > 60 mL/min (>60); Glucose 281 mg/dL (70-99); HEMOLYSIS < 15 (0-50); Potassium 4.0 mmol/L (3.4-5.1); Sodium 134 mmol/L (137-145)
[2024-11-04 17:21] LABS: Magnesium 1.6 mg/dL (1.6-2.3)
[2024-11-04 17:49] LABS: Hematocrit 39.1 % (41-53); Hemoglobin 13.0 g/dL (13.5-17.5); Mean Corpuscular HGB Conc 33.3 % (30-36); Mean Corpuscular Hemoglobin 29.9 PG (26-34); Mean Corpuscular Volume 90.0 fL (80-100); Platelet Count 146 X10^3/uL (150-400)
[2024-11-04] MEDS: METFORMIN HCL 500 MG TABLET 1000 MG PO (17:53)
[2024-11-04] MEDS: MAGNESIUM CHLORIDE 64 MG TABLET 128 MG PO (17:54)
[2024-11-04] MEDS: ACETAMINOPHEN 325 MG TABLET 650 MG PO (21:08)
[2024-11-04] MEDS: INSULIN GLARGINE 100 UNIT/ML 3ML PEN 10 UNIT SUBCUT (21:09)
[2024-11-05] VITALS (9 sets, daily range): BP systolic 120–175; BP diastolic 56–83; PULSE 68–87; RESP 17–20; TEMP 36.1–36.6; O2SAT 95–96; BMI 25.8
[2024-11-05] MEDS: OXYCODONE IR 10 MG TABLET PO ×3 (04:55→11:52)
[2024-11-05] MEDS: hydrALAZINE 20 MG/ML VIAL 10 MG IV (05:24)
[2024-11-05 06:03] LABS: Blood Urea Nitrogen 20 mg/dL (9-20); Calcium 10.2 mg/dL (8.4-10.2); Carbon Dioxide 26 mmol/L (22-32); Chloride 102 mmol/L (98-107); Estimated Glomerular Filt Rate 57 mL/min (>60); Glucose 229 mg/dL (70-99); HEMOLYSIS < 15 (0-50); Potassium 3.5 mmol/L (3.4-5.1); Sodium 134 mmol/L (137-145)
[2024-11-05 06:07] LABS: Hemoglobin A1C% w Est Avg Glu 9.4 % (4.0-6.0)
[2024-11-05] MEDS: METFORMIN HCL 500 MG TABLET 1000 MG PO ×2 (07:49→16:45)
[2024-11-05] MEDS: ACETAMINOPHEN 325 MG TABLET 650 MG PO ×3 (07:49→21:07)
[2024-11-05] MEDS: INSULIN REGULAR 100 UNIT/ML 3 ML VIAL SUBCUT (07:49)
--- NOTE | 2024-11-05 08:00 | DI.RAD.S_ITS ---
PROCEDURE: XR CHEST 1V INDICATIONS: f/u rib fxs TECHNIQUE: One view of the chest was acquired. COMPARISON: [facility], CT, CT TRAUMA CHEST ABDOMEN PELVIS, 11/04/2024, 12:08. [facility], CR, XR CHEST 1V, 11/04/2024, 11:56. [facility], CR, XR CHEST 1V, 02/16/2024, 11:50. FINDINGS: Surgical changes and devices: None. Lungs and pleura: Lungs are clear. No pleural effusions or pneumothorax. Mediastinum: Mediastinal contours appear normal. Heart size is normal. Bones and chest wall: No suspicious bony lesions. Prior rib fractures best seen by CT scanning 1 day earlier can be partially visualized without appreciable change given differences in technique. Overlying soft tissues appear unremarkable. IMPRESSION: CT scanning provides a more accurate assessment of rib fractures on the right. No pneumothorax has developed bilaterally. Several of the acute rib fractures seen by CT scanning can be partially visualized by plain film, without change given difference in technique. Dictated by: Nicolas Cagle M.D. on 11/05/2024 at 9:23 Approved by: Nicolas Cagle M.D. on 11/05/2024 at 9:28
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
[2024-11-05] MEDS: INSULIN LISPRO 100 UNIT/ML 3ML VIAL SUBCUT ×3 (11:52→21:05)
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
[2024-11-05] MEDS: ONDANSETRON 4 MG/2 ML INJ IV (15:14)
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
[2024-11-05] MEDS: INSULIN GLARGINE 100 UNIT/ML 3ML PEN 15 UNIT SUBCUT (21:06)
[2024-11-06] VITALS (7 sets, daily range): BP systolic 106–164; BP diastolic 55–77; PULSE 56–79; RESP 15–19; TEMP 36.1–36.7; O2SAT 93–96
[2024-11-06] MEDS: OXYCODONE IR 10 MG TABLET PO ×5 (06:09→18:58)
[2024-11-06] MEDS: ACETAMINOPHEN 325 MG TABLET 650 MG PO ×3 (06:10→20:36)
[2024-11-06] MEDS: PANTOPRAZOLE DR 40 MG TABLET PO (06:10)
[2024-11-06] MEDS: METFORMIN HCL 500 MG TABLET 1000 MG PO ×2 (07:44→17:31)
[2024-11-06] MEDS: diphenhydrAMINE 50 MG/ML VIAL 25 MG IV ×2 (07:44→15:30)
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
[2024-11-06 07:51] LABS: Blood Urea Nitrogen 24 mg/dL (9-20); Carbon Dioxide 25 mmol/L (22-32); Estimated Glomerular Filt Rate 49 mL/min (>60); HEMOLYSIS < 15 (0-50)
[2024-11-06 07:53] LABS: Calcium 10.1 mg/dL (8.4-10.2); Chloride 99 mmol/L (98-107); Glucose 199 mg/dL (70-99); Potassium 3.8 mmol/L (3.4-5.1); Sodium 132 mmol/L (137-145)
[2024-11-06] MEDS: INSULIN LISPRO 100 UNIT/ML 3ML VIAL SUBCUT ×5 (07:58→17:31)
[2024-11-06] MEDS: LIDOCAINE 5% PATCH 1 EACH TOP (09:49)
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
[2024-11-06] MEDS: IBUPROFEN 600 MG TABLET PO (18:58)
[2024-11-06] MEDS: INSULIN GLARGINE 100 UNIT/ML 3ML PEN 18 UNIT SUBCUT (20:36)
[2024-11-06] MEDS: REMOVE LIDOCAINE PATCH 1 EACH TOP (20:37)
[2024-11-07] VITALS: BP 133/67; PULSE 78; RESP 16; TEMP 36.1; O2SAT 93
[2024-11-07] MEDS: ACETAMINOPHEN 325 MG TABLET 650 MG PO ×4 (01:40→20:54)
[2024-11-07 04:00] VITALS: BP 127/67; PULSE 61; RESP 16; TEMP 36.1; O2SAT 95
[2024-11-07 06:51] LABS: Blood Urea Nitrogen 31 mg/dL (9-20); Calcium 9.8 mg/dL (8.4-10.2); Carbon Dioxide 27 mmol/L (22-32); Chloride 102 mmol/L (98-107); Estimated Glomerular Filt Rate 45 mL/min (>60); Glucose 132 mg/dL (70-99); HEMOLYSIS < 15 (0-50); Potassium 4.0 mmol/L (3.4-5.1); Sodium 132 mmol/L (137-145)
[2024-11-07] MEDS: PANTOPRAZOLE DR 40 MG TABLET PO (06:57)
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
[2024-11-07 08:00] VITALS: BP 135/65; PULSE 62; RESP 16; TEMP 36.1; O2SAT 93
[2024-11-07] MEDS: OXYCODONE IR 10 MG TABLET PO ×2 (09:17→12:36)
[2024-11-07] MEDS: DOCUSATE 100 MG CAPSULE PO (09:19)
[2024-11-07] MEDS: METFORMIN HCL 500 MG TABLET 1000 MG PO ×2 (09:19→17:37)
[2024-11-07] MEDS: INSULIN LISPRO 100 UNIT/ML 3ML VIAL SUBCUT ×6 (09:21→17:17)
--- NOTE | 2024-11-07 09:22 | CM.DPNOTE ---
Addendum entered by RACH Roberson 11/07/24 15:18: RETAIL COVERAGE MERCHANDISER lvm with Michelle from [facility] re: referral acceptance. no response as of 1514. RETAIL COVERAGE MERCHANDISER completed PASRR. Attempted to meet with pt in room, sleeping soundly, allowed to rest SL Original Note: DCP Note Per kat LOYD from 11/06, late entry [facility] number: [id number]. RACH stephens Spoke w/Jaclyn from [facility]? She declines to take him, said they offered patient LTC bed when he was there recently and he refused- also he has an outstanding bill at [facility]. [facility] SNF continues to review. CM team will continue to follow closely for DCP coordination RACH Roberson
[2024-11-07] MEDS: LIDOCAINE 5% PATCH 1 EACH TOP (09:27)
[2024-11-07 12:00] VITALS: BP 160/69; PULSE 59; RESP 18; TEMP 35.9; O2SAT 96
[2024-11-07] MEDS: IBUPROFEN 600 MG TABLET PO (13:13)
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
[2024-11-07 16:00] VITALS: BP 173/75; PULSE 65; RESP 16; TEMP 35.8; O2SAT 100
[2024-11-07 20:38] VITALS: BP 132/72; PULSE 71; RESP 18; TEMP 36.7; O2SAT 96
[2024-11-07] MEDS: INSULIN GLARGINE 100 UNIT/ML 3ML PEN 18 UNIT SUBCUT (20:57)
[2024-11-07] MEDS: REMOVE LIDOCAINE PATCH 1 EACH TOP (22:50)
[2024-11-08] VITALS (7 sets, daily range): BP systolic 142–178; BP diastolic 67–83; PULSE 63–71; RESP 17–20; TEMP 36–36.6; O2SAT 94–98
--- NOTE | 2024-11-08 00:48 | PC.WOUNDPHOT ---
^ non-blanchable on L buttock
[2024-11-08] MEDS: ACETAMINOPHEN 325 MG TABLET 650 MG PO ×4 (02:47→21:48)
[2024-11-08] MEDS: PANTOPRAZOLE DR 40 MG TABLET PO (05:50)
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
[2024-11-08] MEDS: LIDOCAINE 5% PATCH 1 EACH TOP (08:13)
[2024-11-08] MEDS: METFORMIN HCL 500 MG TABLET 1000 MG PO ×2 (08:13→17:07)
[2024-11-08] MEDS: INSULIN LISPRO 100 UNIT/ML 3ML VIAL SUBCUT ×6 (08:16→17:08)
[2024-11-08] MEDS: OXYCODONE IR 10 MG TABLET PO ×2 (09:57→15:44)
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
--- NOTE | 2024-11-08 11:36 | CM.DPNOTE ---
DCP Cont LM with Michelle at [facility] this morning; no response. Check in again Thursday 11/09. Broadened SNF search, sent SNF referral to the following facilities via Right[facility]ax: [facility], [facility], [facility] ([facility]) and [facility] ([facility]). Follow up with SNF admissions Thursday 11/09. JESSICA
[2024-11-08] MEDS: HYDROCODONE/ACET 5/325 TABLET 1 TAB PO (12:14)
[2024-11-08] MEDS: IBUPROFEN 600 MG TABLET PO (12:14)
--- NOTE | 2024-11-08 14:19 | PT-IP ANOTE ---
PT checks in on pt who is up in chair and comfortable sitting. He states that he can only move from the bed to the chair at this time d/t rib pain when he moves. He does not think that he can mobilize further or walk at this time. Pt demonstrates proper use of incentive spirometer and PT encourages him to use it every hour. Pt is comfortable sitting up in the chair and this is good for his lung positioning, breathing and pain and so PT does not push pt getting back to bed for the purpose of mobility practice with PT at this time. Con't efforts.
[2024-11-08] MEDS: REMOVE LIDOCAINE PATCH 1 EACH TOP (22:09)
[2024-11-08] MEDS: INSULIN GLARGINE 100 UNIT/ML 3ML PEN 24 UNIT SUBCUT (22:09)
[2024-11-09] VITALS (7 sets, daily range): BP systolic 147–166; BP diastolic 62–82; PULSE 65–78; RESP 16–18; TEMP 36.2–36.6; O2SAT 94–98
[2024-11-09] MEDS: PANTOPRAZOLE DR 40 MG TABLET PO (05:33)
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
[2024-11-09] MEDS: INSULIN LISPRO 100 UNIT/ML 3ML VIAL SUBCUT ×6 (08:11→17:08)
[2024-11-09] MEDS: ACETAMINOPHEN 325 MG TABLET 650 MG PO (08:12)
[2024-11-09] MEDS: LIDOCAINE 5% PATCH 1 EACH TOP (08:12)
[2024-11-09] MEDS: METFORMIN HCL 500 MG TABLET 1000 MG PO ×2 (08:12→17:09)
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
[2024-11-09] MEDS: OXYCODONE IR 10 MG TABLET PO (09:03)
[2024-11-09] MEDS: IBUPROFEN 600 MG TABLET PO (09:04)
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
--- NOTE | 2024-11-09 13:36 | PC.NURSE ---
Patient is sitting up in his chair. Dressing to l.forearm changed to mepelex dressing, other dressings to arms, and legs are cdi. Patient also has a mepelex dressing on his coccyx.. Area's are not open but bottom has some purple discoloration. He is a 2 person max assist with staff to get up to chair and back to bed. PT did get him up and he can be impulsive but does not try and get up. Patient is urinal dependent. Given Oxycodone and ibuprofen for discomfort with tylenol and helpful. He is resting now.
--- NOTE | 2024-11-09 15:57 | CM.DPNOTE ---
Addendum entered by RACH Roberson 11/10/24 16:19: per Cadence/pt, pt was kicked out of [facility] for not wanting to pay bill. not for negative behaviors. SL Original Note: DCP note SNF search is as follows [facility]- no LTC beds available, tentatively interested in short term rehab. will hold onto referral [facility], no male LTC beds available. could accept in short term. [facility], maybe for short term bed. no LTC male beds. questions about why kicked out of [facility]. WILDLIFE CONTROL AGENT unable to expand SNF search today due to triaging needs. will continue to follow closely for DCP coordination RACH Roberson
[2024-11-09] MEDS: INSULIN GLARGINE 100 UNIT/ML 3ML PEN 30 UNIT SUBCUT (22:10)
[2024-11-09] MEDS: REMOVE LIDOCAINE PATCH 1 EACH TOP (22:10)
[2024-11-10] VITALS: BP 168/84; PULSE 77; RESP 16; TEMP 36.2; O2SAT 95
[2024-11-10 04:00] VITALS: BP 189/85; PULSE 68; RESP 20; TEMP 36.1; O2SAT 98
[2024-11-10] MEDS: OXYCODONE IR 10 MG TABLET PO (04:36)
[2024-11-10] MEDS: PANTOPRAZOLE DR 40 MG TABLET PO (06:39)
[2024-11-10 08:00] VITALS: BP 145/72; PULSE 61; RESP 18; TEMP 35.9; O2SAT 100
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
[2024-11-10] MEDS: INSULIN LISPRO 100 UNIT/ML 3ML VIAL SUBCUT ×6 (08:32→17:45)
[2024-11-10] MEDS: ACETAMINOPHEN 325 MG TABLET 650 MG PO ×2 (08:35→21:01)
[2024-11-10] MEDS: ENOXAPARIN 40 MG/0.4 ML SYRINGE SUBCUT (08:35)
[2024-11-10] MEDS: METFORMIN HCL 500 MG TABLET 1000 MG PO ×2 (08:36→17:45)
[2024-11-10 12:00] VITALS: BP 162/80; PULSE 62; RESP 18; TEMP 36.6; O2SAT 96
--- NOTE | 2024-11-10 14:21 | OT.IPNOTE ---
Pt not wanting to get up as just got back to bed with nursing. Pt also having a friend visit, not able to see for OT today.
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
--- NOTE | 2024-11-10 15:25 | PT-IP ANOTE ---
Checked in on pt to initiate treatment. Pt hook lying in bed. Pt declines PT and reports that his airport ramp agent is checking in with his insurance. He does not recall working with PT in the hospital. PT encourages OOB with PT for dinner and he declines d/t pain and states he wants to give it another week. He then states that he gets in trouble if he gets OOB by himself and he has been doing this for years. Pt with some confusion this afternoon and PT is unable to direct conversation back to acute PT this afternoon. Bed alarm is on. Con't PT efforts next date.
[2024-11-10 16:00] VITALS: BP 123/67; PULSE 72; RESP 16; TEMP 36.6; O2SAT 96
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
--- NOTE | 2024-11-10 19:25 | PC.NURSE ---
Patients dressings to bilateral arms were changed today and dated. His buttocks meplex and l.knee and r.knee mepelex changed yesterday. All area's are healing slowly, they are moist. He denies pain when changing the dressings, a couple of days ago patient had a lot of pain with taking the dressings off and that has improved. He is also a 1 person assist with walker to the chair, his steadiness and coordination has improved.
[2024-11-10 20:00] VITALS: BP 128/70; PULSE 65; RESP 15; TEMP 36.3; O2SAT 95
[2024-11-10] MEDS: REMOVE LIDOCAINE PATCH 1 EACH TOP (22:28)
[2024-11-11] VITALS: BP 118/64; PULSE 63; RESP 16; TEMP 35.8; O2SAT 97
[2024-11-11 04:00] VITALS: BP 127/74; PULSE 63; RESP 14; TEMP 36.1; O2SAT 97
[2024-11-11] MEDS: PANTOPRAZOLE DR 40 MG TABLET PO (06:00)
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
[2024-11-11 08:00] VITALS: BP 134/75; PULSE 61; RESP 18; TEMP 35.9; O2SAT 100
[2024-11-11] MEDS: INSULIN LISPRO 100 UNIT/ML 3ML VIAL SUBCUT ×4 (08:51→16:39)
[2024-11-11] MEDS: METFORMIN HCL 500 MG TABLET 1000 MG PO ×2 (08:56→16:41)
[2024-11-11] MEDS: ENOXAPARIN 40 MG/0.4 ML SYRINGE SUBCUT (08:56)
[2024-11-11] MEDS: ACETAMINOPHEN 325 MG TABLET 650 MG PO (08:58)
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
[2024-11-11 13:00] VITALS: BP 113/88; PULSE 71; RESP 18; TEMP 36; O2SAT 100
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
[2024-11-11 17:00] VITALS: BP 162/78; PULSE 67; RESP 16; TEMP 35.8; O2SAT 100
[2024-11-11 21:04] VITALS: BP 149/52; PULSE 72; RESP 16; TEMP 35.9; O2SAT 97
[2024-11-11] MEDS: REMOVE LIDOCAINE PATCH 1 EACH TOP (21:36)
[2024-11-12 05:00] VITALS: BP 139/73; PULSE 70; RESP 18; TEMP 35.8; O2SAT 95
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
[2024-11-12] MEDS: PANTOPRAZOLE DR 40 MG TABLET PO (07:34)
[2024-11-12] MEDS: INSULIN LISPRO 100 UNIT/ML 3ML VIAL SUBCUT ×5 (08:19→17:02)
[2024-11-12] MEDS: METFORMIN HCL 500 MG TABLET 1000 MG PO ×2 (08:21→16:15)
[2024-11-12] MEDS: DOCUSATE 100 MG CAPSULE PO (08:21)
[2024-11-12] MEDS: ACETAMINOPHEN 325 MG TABLET 650 MG PO (08:21)
[2024-11-12] MEDS: ENOXAPARIN 40 MG/0.4 ML SYRINGE SUBCUT (08:21)
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
[2024-11-12 09:00] VITALS: BP 127/78; PULSE 63; RESP 18; TEMP 35.9; O2SAT 99
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
--- NOTE | 2024-11-12 10:59 | CM.DPNOTE ---
Addendum entered by RACH Herrera 11/12/24 15:04: [facility] accepts for admission tomorrow, 11/13. [facility] secured the insurance auth and administrators approved the admission. [facility] does not arrange transport; attempt [facility] transport Fri morning. Original Note: DCP Cont Cognition improving according to therapies. Met w/patient, reviewed [facility] senior living care application, patient signed and remains agreeable to intermediate card tender care placement. Faxed both this completed and signed application and the home and community services intake and referral form. Spoke with [facility] at [facility]; she has not met with patient but hopes to today or tomorrow. [facility]'s administrators continue to deliberate about whether patient is a good candidate for them and intermediate card tender care beds. [facility] auth has been submitted. [facility] team following closely for coordination- hopeful for [facility] for rehab if [facility] MCR approves then transition to intermediate card tender care [facility] at [facility]. JESSICA
[2024-11-12 17:00] VITALS: BP 140/81; PULSE 80; RESP 20; TEMP 36.1; O2SAT 97
[2024-11-12 21:00] VITALS: BP 152/62; PULSE 64; RESP 18; TEMP 36.1; O2SAT 99
[2024-11-13 05:00] VITALS: BP 148/67; PULSE 59; RESP 18; TEMP 36.3; O2SAT 98
--- NOTE | 2024-11-13 05:07 | PC.NURSE ---
Dressings changed; hands and wrists washed with antiseptic wash/wrapped with gauze/xeroform. Knees washed/dressed with mepilex over non-adherent pad. Patient transfers from chair/bed with 1 person/stby assist. Pt tells this RN about his Adriana, and shows heavily filtered photo of young beautiful woman. Pt states they have been together for 5 years & he sends her whatever money she needs. He states that they cannot video chat because her skype never works, but one time (in the whole relationship) they had a voice call. This RN gently asked pt how they can be if they never have met, and pt states that he has friends in the [facility], whose geological engineer were able to make it all legal. With a happy smile, pt states that Adriana will someday come to live with him, and he will buy her whatever house she picks out but he gives her all he can until then.
[2024-11-13] MEDS: PANTOPRAZOLE DR 40 MG TABLET PO (06:54)
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
[2024-11-13 08:00] VITALS: BP 140/85; PULSE 71; RESP 17; TEMP 35.9; O2SAT 98
[2024-11-13] MEDS: INSULIN LISPRO 100 UNIT/ML 3ML VIAL SUBCUT ×2 (08:48→08:49)
[2024-11-13] MEDS: ENOXAPARIN 40 MG/0.4 ML SYRINGE SUBCUT (08:52)
[2024-11-13] MEDS: ACETAMINOPHEN 325 MG TABLET 650 MG PO (08:52)
[2024-11-13 08:53] VITALS: BP 148/67; PULSE 59
[2024-11-13] MEDS: METFORMIN HCL 500 MG TABLET 1000 MG PO (08:53)
[2024-11-13] MEDS: DOCUSATE 100 MG CAPSULE PO (08:53)
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
--- NOTE | 2024-11-13 10:38 | DIET.PN1 ---
Dietary Progress Note Assessment: F/u. PO intakes 75-100% DFM reviewed. All except 1 BG <180 since 11/09. Pt d/c today to [facility]. Ht: 180.34 cm Wt: 84 kg BMI: 25.8 Last BM: 11/03/24 (11/05/24 11:45) MNA: 12 Jamie Score: 20 Diet: 11/05/24 Breakfast Carbohydrate Consistent Diet Diet Modifications: Carbohydrate level: Small (2 CHO) Reflex DM orders: No Food Texture: Level 7 - Regular Liquid Consistency: Level 0 - Thin Nutrition Percent Meal Consumed 100% 11/13/24 09:00 Percent Meal Consumed 100% 11/12/24 17:35 Percent Meal Consumed 100% 11/12/24 09:22 Percent Meal Consumed 75% 11/11/24 18:00 Labs: RBC 4.34 X10^6/uL (4.5-5.9) L 11/04/24 16:40 Hgb 13.0 g/dL (13.5-17.5) L 11/04/24 16:40 Hct 39.1 % (41-53) L 11/04/24 16:40 Creatinine 1.52 mg/dL (0.66-1.25) H 11/07/24 06:00 Hemoglobin A1c 9.4 % (4.0-6.0) H 11/05/24 04:40 Lactate 2.4 mmol/L (0.7-2.1) H 11/04/24 15:00 Electronically Signed by: Kristi Mosley 11/13/24 10:38 Clinical Diet[address] [address]
--- NOTE | 2024-11-13 13:25 | PC.NURSE ---
Called Priya Hollingsworth to give report re: pt. Priya Hollingsworth refused pt based on lack of BM (none recorded since admission). Escalated to Coordinator GUS Stallings and GLASS ARTIST Rupinder Méndez
--- NOTE | 2024-11-13 14:04 | CM.DPNOTE ---
Addendum entered by Kelly Hickman RACH 11/13/24 14:48: ADD: IMM reviewed with patient this morning. Patient stated understanding and was agreeable to discharge plan. Original Note: DC Note Patient discharged this morning and [facility] at [facility] confirms okay to admit. [facility] does not coordinate transport. Placed call to [facility] transport and patient does not have the benefit. Placed call to [facility] [employer] [facility] who cannot transport. Discussed patient in multidisciplinary rounds and team agrees that patient is okay to transport via taxi. [employer] taxcookdinner arranged for pickling solution maker at 1230 via Hospital taxi voucher, $65. DC Summary, DC report, signed med list, Rx and PASRR all sent via email to Asia. Bedside RN called report P [phone]. [place] at 1250 via voicemail that admission RN and nursing informatics specialist at [facility] refusing to admit patient as it was learned from patient he had not had a BM in 11 days. Patient chart did not indicate when his last BM was. [facility] staff reports patient is high risk for bowel obstruction or bowel perf. This BOX SPINNER able to get in touch with [facility] to request send patient back to . Round trip hospital taxi voucher is $95. According to Delphine Milian, Care Management dept Project Geologist, patient needed to be brought to the ER and get registered in the ER, NOT come back to his acute care Rm- [id number]. Updated ER staff with summary of above. Asia at [facility] explains that once patient has had a BM, patient can admit to [facility]. Asia is not concerned about patient's [facility] Auth expiring over the next 48 hrs. Asia asks that CM team contact her over the weekend at P [phone] for coordination. JESSICA
== END 2024-11-13 12:30 | DRG 184 ==
LOC: ED 14:09 → AC 14:19
PROVIDERS: Admitting Provider Surgery; Emergency Provider Emergency Medicine; Family Provider Nurse Practitioner; PCP Family Medicine; Referring Provider Emergency Medicine; Visit Provider Surgery
DX: S22.41XA Multiple fractures of ribs, right side, initial encounter for closed fracture (principal); Z59.00 Homelessness unspecified; S40.812A Abrasion of left upper arm, initial encounter; S40.811A Abrasion of right upper arm, initial encounter; K86.89 Other specified diseases of pancreas; I10 Essential (primary) hypertension; E11.9 Type 2 diabetes mellitus without complications; E78.5 Hyperlipidemia, unspecified; S80.212A Abrasion, left knee, initial encounter; S80.211A Abrasion, right knee, initial encounter; R53.1 Weakness; N40.0 Benign prostatic hyperplasia without lower urinary tract symptoms; V27.09XA Other motorcycle driver injured in collision with fixed or stationary object in nontraffic accident, initial encounter; Z87.891 Personal history of nicotine dependence; Z91.148 Patient's other noncompliance with medication regimen for other reason; Z23 Encounter for immunization; Z86.73 Personal history of transient ischemic attack (TIA), and cerebral infarction without residual deficits
CPT/HCPCS: 36415; 70450; 71045; 71275; 72125; 73502; 74177; 80048; 80053; 80305; 80320; 82962; 83036; 83605; 83690; 83735; 85025; 85027; 85610; 85730; 86850; 86900; 86901; 90471; 93005; 93010; 97116; 97129; 97162; 97167; 97530; 97535; 99231; 99232; 99233; 99284; G0378; 90715; J0360; J1171; J1200; J1650; J1815; J2405; Q9967

== ENCOUNTER 2024-11-13 13:32 | Emergency (ER) | payer MEDICARE, SELFPAY ==
[2024-11-05 11:45] VITALS: BMI 25.8
[2024-11-13 13:35] VITALS: BP 179/90; PULSE 68; RESP 16; TEMP 37; O2SAT 100; BMI 27.0
--- NOTE | 2024-11-13 15:21 | PC.NURSE ---
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 pt denies abdominal pain, and any other complaints.
--- NOTE | 2024-11-13 17:56 | CM.SWNOTE ---
ED SANE NURSE Note SANE NURSE reviews EMR and discusses patient with SHEELA Bucio. Patient just discharged from acute care 2 hours prior to ED presentation with d/c plan to go to [facility] SNF rehab, upon RN report to [facility] it was identified that patient has not had a BM in 11 days. [facility] refused patient's acceptance until he has had a BM. It is reported that [facility] can accept patient tomorrow, patient will require [employer] taxi voucher upon transport to [facility] for SNF rehab (ph. # [phone]) SANE NURSE calls Asia at [facility], she reports that patient can arrive any time tomorrow upon medical clearance. SANE NURSE discusses that ED SANE NURSE arrives at 11AM tomorrow and recommends arrival time at [facility] of 12pm. Asia requests ED provider to cosign discharge orders previously signed by hospitalist with tomorrow's date. [facility] reports that there is no need for PASSR as it was received today. SANE NURSE speaks with patient regarding plan for patient to board in the ED overnight, awaiting medical clearance and BM. Patient indicates understanding and states he is hungry. Patient is in need of [employer] taxi voucher upon transport to [facility] SNF rehab tomorrow, this has not been arranged with [facility] yet. Plan: Patient to board in ED overnight upon medical clearance and d/c to [facility] SNF rehab tomorrow. Tentative arrival time of 12pm, pending [employer] taxi voucher transport arrangement. F/u with [facility] if plan changes. Patient awaiting medical clearance at this time. Loree Garcia, AGRICULTURE MANAGER
--- NOTE | 2024-11-13 18:03 | ED_ITS ---
HPI - Abdominal Pain General Chief Complaint: Abdominal Pain Stated Complaint: constipation Time Seen by Provider: 11/13/24 14:51 Source: patient Mode of arrival: other History of Present Illness HPI narrative: 84-year-old gentleman history of prior hemorrhagic stroke hypertension dyslipidemia diabetes that was discharge from acute care today is going to be transferred to [facility] but it was discovered that he did not waddell ve a bowel movement in 10-11 days afterward being admitted for rib fracture and pain control. Patient has been living in a hotel but was recently kicked out. He states that it is not uncommon for him not to have a bowel movement in a few days but 10-11 days is a little bit longer than usual but has no other urinary complaints. Other than what is stated 14 point review of system is negative. Related Data Home Medications ?Medication ?Instructions ?Recorded ?Confirmed aspirin 81 mg tablet,delayed 81 mg PO DAILY 01/29/23 0 11/04/24 release atorvastatin 40 mg tablet 40 mg PO DAILY 10/03/2306/30 Previous Rx's ?Medication ?Instructions ?Recorded cholecalciferol (vitamin D3) 25 25 mcg PO DAILY #90 ca ps 12/16/23 mcg (1,000 unit) capsule acetaminophen 325 mg tablet 650 mg (2 x 325 mg) PO Q6H PRN 11/13/24 pain #30 tabs docusate sodium 100 mg capsule 100 mg PO BID PRN Const ipation #14 11/13/24 caps hydrocodone 5 mg-acetaminophen 325 1 tab PO Q4-6H PRN pain #30 tabs 11/13/24 mg tablet hydrocodone 5 mg-acetaminophen 325 1 tab PO Q4H PRN Pa in, Moderate 11/13/24 mg tablet (4-6) #15 tabs ibuprofen 600 mg tablet 600 mg PO Q6H PRN Fever/Mild Pain 11/13/24 (1-3) #10 tabs insulin glargine 100 unit/mL (3 10 unit (0.1 mL) SUBCU T BEDTIME 11/13/24 mL) subcutaneous pen (Lantus #15 mL Solostar U-100 Insulin) insulin lispro 100 unit/mL 3 unit (0.03 mL) SUBCUT JULIANNE LY@1645 11/13/24 subcutaneous solution (Admelog #10 mL U-100 Insulin lispro) insulin lispro 100 unit/mL 5 unit (0.05 mL) SUBCUT 074 5,1145 11/13/24 subcutaneous solution (Admelog #10 mL U-100 Insulin lispro) lactulose 10 gram/15 mL oral 15 ml PO DAILY PRN consti pation 11/13/24 solution (Constulose) #473 mL lidocaine 5 % topical patch 1 patch topical BEDTIME #1 5 ea 11/13/24 lisinopril 20 mg tablet 40 mg (2 x 20 mg) PO DAILY # 30 tabs 11/13/24 metformin 500 mg tablet 1,000 mg (2 x 500 mg) PO BID WM #60 11/13/24 tabs pantoprazole 40 mg tablet,delayed 40 mg PO 0700 #15 ta bs 11/13/24 release polyethylene glycol 3350 17 gram 17 g PO DAILY PRN Con stipation #30 11/13/24 oral powder packet ea Allergies Allergy/AdvReac Type Severity Reaction Status Date / Time Sulfa (Sulfonamide Allergy Intermediate Rash Verified 11/13/24 13:35 Antibiotics) codeine AdvReac Intermediate Hallucinati Verified 11/13/24 13:35 ng ibuprofen (From MOTRIN) AdvReac Mild makes me Verified 11/13/24 13:35 sick orange AdvReac Verified 11/13/24 13:35 orange juice AdvReac Verified 11/13/24 13:35 Review of Systems Review of Systems ROS Unobtainable: All systems reviewed & are unremarkable except as noted in HPI and below Patient History Medical History Fall from ground level Closed fibular fracture Emphysematous cystitis Expressive aphasia Bloody stool TIA (transient ischemic attack) Metatarsal fracture History of transient ischemic attack Type 2 diabetes mellitus without complications History of prostatitis Nephrolithiasis Surgical History H/O hernia repair Social History household members: family alcohol intake: former additional social history: He quit smoking over 20 years ago. 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 He plans to move to [place] within a couple of days. He denies alcohol use. alcohol intake frequency: 0-2 drinks per day Exam Narrative Exam Narrative: GENERAL: [84] year old patient appears stated age. Well-developed patient, in mild distress. HEAD: Atraumatic. Normocephalic. EYES: Pupils equal round and reactive. Extraocular motions intact. No scleral icterus. No injection or drainage. ENT: Nose without bleeding, purulent drainage. Throat without erythema, tonsillar hypertrophy or exudate. Airway patent. NECK: Trachea midline. Non tender CARDIOVASCULAR: Regular rate and rhythm without murmurs, gallops, or rubs. RESPIRATORY: Clear to auscultation. Breath sounds equal bilaterally. No wheezes, rales, or rhonchi. GASTROINTESTINAL: Abdomen soft, non-tender, nondistended. EXTREMITIES: No edema or joint tenderness. BACK: Nontender without deformity or crepitance. No flank tenderness. NEURO: AOx3. SKIN: No rash or erythema of visible areas Initial Vital Signs Initial Vital Signs: Vital Signs Temperature 98.6 F 11/13/24 13:35 Pulse Rate 68 11/13/24 13:35 Respiratory Rate 16 11/13/24 13:35 Blood Pressure 179/90 H 11/13/24 13:35 Pulse Oximetry 100 11/13/24 13:35 Oxygen Delivery Method Room Air 11/13/24 13:35 Course Orders Ordered: ED Orders 11/13/24 15:24 Consult to ENTRY SPECIALISTS - Activity Aide Stat 11/13/24 18:04 CT abdomen pelvis wo con Stat Vital Signs Vital signs: Vital Signs - 8 hr 11/13/24 13:35 Temperature 98.6 F Pulse Rate 68 Respiratory Rate 16 Blood Pressure 179/90 H Pulse Oximetry 100 Oxygen Delivery Method Room Air MDM - Abdominal Pain Lab Data Point of care testing: Urine Dip Bedside Urine Glucose Negative Bedside Urine Bilirubin - Negative Bedside Urine Ketone - Negative Urine Specific Laughlin 1.015 Bedside Urine Occult Blood - Negative Bedside Urine pH 6.0 Bedside Urine Protein - Negative Bedside Urine Urobilinogen +/- 1mg Bedside Urine Nitrite - Negative Bedside Urine Leukocytes - Negative Esterase Imaging Data CT scan - abdomen/pelvis: Radiologist's Impression: [address] [address] [address] Scan Report Signed Patient: Haresh Pizarro MR#: [id number] : 1940 Acct:[id number] Age/Sex: 84 / M Date of Service: 11/13/24 Loc: ED Accession Number: [id number] Procedure: CT abdomen pelvis wo con Ordering Provider: Ramos Alexander D.O. PROCEDURE: CT ABDOMEN PELVIS WO CON INDICATIONS: abd pain constipation TECHNIQUE: Axial sections were acquired from the lung bases to the pubic symphysis. Coronal and sagittal reformats were performed. For radiation dose reduction, the following was used: automated exposure control, adjustment of mA and/or kV according to patient size. COMPARISON: None. FINDINGS: Image quality: Diagnostic. Lower Chest: No significant findings. URINARY: Right Kidney: No stones or hydronephrosis. Right Ureter: No hydroureter. Left Kidney: No stones or hydronephrosis. Left Ureter: No hydroureter. Bladder: Questionable layering stones the posterior aspect of the. Normal wall thickness. No stones. ABDOMEN: Liver: No contour-deforming solid mass. Gallbladder: No radiopaque gallstones or wall thickening. Biliary ducts: No biliary dilation. Pancreas: No ductal dilation. Calcifications likely reflecting chronic pancreatitis. Spleen: Size is within normal limits. Adrenal Glands: No adrenal nodules. Stomach and Bowel: Normal colonic caliber, without significant wall thickening. Stool is seen throughout the colon. Peritoneum: No abnormal intraperitoneal fluid. No free air. Ventral Wall: Fat containing periumbilical hernia.. Abdominal Nodes: No enlarged retroperitoneal or mesenteric lymph nodes. Vessels: Aorta and inferior vena cava are normal in size. Aorto bi iliac atherosclerotic calcifications. PELVIS: Pelvic Organs: Prostatomegaly. Pelvic Nodes: Unremarkable. Miscellaneous: No inguinal hernias are seen. Bones: Unremarkable. IMPRESSION: No obstructing stones or hydronephrosis. Stool seen throughout the colon which can be seen in the setting constipation. Prostatomegaly with multiple bladder stones layering along the posterior aspect. This finding may represent chronic bladder outlet obstruction. Overall findings are not significantly changed compared to prior CTs. MDM Narrative Medical decision making narrative: Vital signs, nurse triage note, medication list, previous ER visits, and all imaging studies reviewed. No obstructing stones or hydronephrosis but stool seen throughout the colon which can be seen in the setting constipation. Prostatomegaly with multiple bladder stones layer on the posterior aspect this finding may represent chronic bladder outlet obstruction. However overall findings are not significantly changed from prior CTs. Patient given lactulose here and will be discharged on lactulose also. Differential diagnosis includes constipation, UTI, small-bowel obstruction, diverticulitis. Discharge Plan Departure Patient Disposition: [facility] Clinical Impression: Constipation Qualifiers: Constipation type: slow transit constipation Qualified Code(s): K59.01 - Slow transit constipation Prescriptions: New lactulose [Constulose] 10 gram/15 mL solution 15 ml PO DAILY PRN (Reason: constipation) Qty: 473 0RF No Action atorvastatin 40 mg tablet 40 mg PO DAILY cholecalciferol (vitamin D3) 25 mcg (1,000 unit) capsule 25 mcg PO DAILY Qty: 90 1RF acetaminophen 325 mg Tablet 650 mg PO Q6H PRN (Reason: pain) Qty: 30 0RF docusate sodium 100 mg Capsule 100 mg PO BID PRN (Reason: Constipation) Qty: 14 0RF hydrocodone-acetaminophen 5-325 mg Tablet 1 tab PO Q4H PRN (Reason: Pain, Moderate (4-6)) Qty: 15 0RF ibuprofen 600 mg Tablet 600 mg PO Q6H PRN (Reason: Fever/Mild Pain (1-3)) Qty: 10 0RF insulin glargine [Lantus Solostar U-100 Insulin] 100 unit/mL (3 mL) Insulin Pen 10 unit SUBCUT BEDTIME Qty: 15 0RF lidocaine 5 % Adhesive Patch,Medicated 1 patch topical BEDTIME Qty: 15 0RF insulin lispro [Admelog U-100 Insulin lispro] 100 unit/mL Solution 5 unit SUBCUT 0745,1145 Qty: 10 0RF insulin lispro [Admelog U-100 Insulin lispro] 100 unit/mL Solution 3 unit SUBCUT DAILY@1645 Qty: 10 0RF metformin 500 mg Tablet 1,000 mg PO BIDWM Qty: 60 0RF polyethylene glycol 3350 17 gram Powder In Packet 17 g PO DAILY PRN (Reason: Constipation) Qty: 30 0RF lisinopril 20 mg Tablet 40 mg PO DAILY Qty: 30 0RF pantoprazole 40 mg Tablet,Delayed Release (Dr/Ec) 40 mg PO 0700 Qty: 15 0RF hydrocodone-acetaminophen 5-325 mg tablet 1 tab PO Q4-6H PRN (Reason: pain) Qty: 30 0RF aspirin 81 mg tablet,delayed release (DR/EC) 81 mg PO DAILY Referrals: Adam Aguilar MD [Primary Care Provider, Family Practice]
[2024-11-13] MEDS: LACTULOSE 20 GM/30 ML SOLUTION PO (21:39)
[2024-11-13 23:05] VITALS: BP 155/90; PULSE 80; RESP 16; O2SAT 97
[2024-11-14] MEDS: LACTULOSE 20 GM/30 ML SOLUTION PO (06:05)
[2024-11-14] MEDS: MAGNESIUM CITRATE 300 ML SOLUTION 150 ML PO (06:05)
[2024-11-14 08:09] VITALS: PULSE 65; O2SAT 98
[2024-11-14 08:10] VITALS: BP 212/98; PULSE 65; O2SAT 98
--- NOTE | 2024-11-14 08:27 | PC.NURSE ---
10 this DIE CAST PATTERNMAKER assisted pt to bedside commode. pt was unable to have a bowel movement at this time GUS Martinez aware.assisted back to bed Qshift VS checked by this DIE CAST PATTERNMAKER. HOB elevated and breakfast provided.
[2024-11-14] MEDS: DOCUSATE 100 MG CAPSULE PO (09:31)
[2024-11-14 09:39] VITALS: BP 154/81; PULSE 67; RESP 16; O2SAT 96
--- NOTE | 2024-11-14 10:51 | PC.NURSE ---
This TANK INSULATOR RUBBER assisted pt out of bed for Q2H ambulation. Encouraged use of walker for stability pt was agreeable. This TANK INSULATOR RUBBER and pt walked around department twice and returned to room. assisted pt back to bed.
[2024-11-14] MEDS: INSULIN LISPRO 100 UNIT/ML 3ML VIAL SUBCUT ×2 (12:03→16:45)
--- NOTE | 2024-11-14 12:19 | CM.SWNOTE ---
Addendum entered by RACH Saldivar 11/14/24 15:08: Addendum: Patient not able to have a bowel movement by 1300 on 11/14 therefore intake at [facility] will roll into following day. When pt has a bowel movement, [facility] admissions to be contacted for appropriate acceptance time. ED HEALTH EDITOR sent ED Summary for [facility] Admissions to review status (sent via secure email). Contacts for [facility] Admissions: [phone] RN-RN Report#: [phone] Plan: [facility] when medically cleared (when able to have a bowel movement) via [employer]. JHON Littlejohn Original Note: ED HEALTH EDITOR Note: Reviewed chart and discussed pt with ED RN. Per ED Provider, CT identified constipation and ordered bowel regiment medication. Per RN, pt still no bowel movement and is comfortable, not having signs of discomfort. ED HEALTH EDITOR identified 3 missed calls from [facility]missions. HEALTH EDITOR called [facility] Admissions, HEALTH EDITOR updated on pt status. Per Admissions, pt must be at their facility by 1400 at the latest on 11/14 due to their staffing scheduling (this would mean a transport must occur by 1300). [facility]missions confirmed that pt cannot be accepted until he has a bowel movement. Their facility policy indicates >5 days of no bowel movement is a concern. ED HEALTH EDITOR updated status board notes, following for discharge coordination. JHON Littlejohn
[2024-11-14] MEDS: METFORMIN HCL 500 MG TABLET 1000 MG PO (17:08)
--- NOTE | 2024-11-14 18:13 | CM.SWNOTE ---
ED BOSOM PRESSER Note: Reviewed chart, it is reported by RN that pt had a bowel movement at 1500. BOSOM PRESSER sent assessment to [facility] admissions via secure email. Per [facility] Admissions, pt is accepted at anytime after 9:30am on 11/15. ED BOSOM PRESSER notified pt RN and pt of plans, all verbalized understanding. Pt states he is requesting to stop at the [facility] in [place] prior to going to [facility], reqeusted this BOSOM PRESSER call [employer] and friendNatalie to ask if there is any possibility of them transporting pt. ED BOSOM PRESSER calls [employer] [facility] and Natalie ho, both are not able to transport pt to [facility]. ED BOSOM PRESSER calls [employer] and confirmed with [place] that a transport to [place] is $60 and an additional stop at the [facility] is $2. BOSOM PRESSER completed [employer] Voucher form and placed with pt chart. RN-RN Report#: [phone] Pt transport folder from 11/13 attempted transport to be sent with patient with additional ED Summary. ED BOSOM PRESSER notified ED Provider of plans for discharge in the AM on 11/15. Plan: Pt to transport to [facility] on 11/15 at 0900 with an arrival of ~1000. JHON Littlejohn
[2024-11-14] MEDS: INSULIN GLARGINE 100 UNIT/ML 3ML PEN 10 UNIT SUBCUT (21:17)
[2024-11-14] MEDS: LIDOCAINE 5% PATCH 1 EACH TOP (21:18)
[2024-11-14 21:37] VITALS: BP 116/82; PULSE 67; RESP 16; O2SAT 98
--- NOTE | 2024-11-14 21:38 | PC.NURSE ---
boosted pt up in bed after brief change and skin check. brief was slightly wet from patients urinal use. pt skin dry and intact.
--- NOTE | 2024-11-15 08:20 | PC.NURSE ---
Called [facility] at [phone]. Spoke with Elisha. Haddad to be transported back to [facility] today, leaving the facility at 0900. No further questions for this RN.
[2024-11-15 08:21] VITALS: BP 163/84; PULSE 69; RESP 20; O2SAT 98
[2024-11-15 08:23] VITALS: TEMP 36.3
[2024-11-15] MEDS: INSULIN LISPRO 100 UNIT/ML 3ML VIAL SUBCUT (08:39)
[2024-11-15] MEDS: METFORMIN HCL 500 MG TABLET 1000 MG PO (08:40)
[2024-11-15] MEDS: PANTOPRAZOLE DR 40 MG TABLET PO (08:40)
--- NOTE | 2024-11-15 09:03 | PC.NURSE ---
Pt was wheeled out to front lobby with taxi voucher and personal belongings and records for SNF, [employer] arrived at 9am and pt was assisted into wheelchair and taxi voucher was given to auto crane driver. Pt's personal belongings and paperwork for SNF were placed in the passenger seat besides the pt.
== END 2024-11-15 08:50 ==
PROVIDERS: Emergency Provider Emergency Medicine; Family Provider Nurse Practitioner; PCP Family Medicine
DX: K59.01 Slow transit constipation (principal); E11.9 Type 2 diabetes mellitus without complications; E78.5 Hyperlipidemia, unspecified; I10 Essential (primary) hypertension; Z86.73 Personal history of transient ischemic attack (TIA), and cerebral infarction without residual deficits; Z87.891 Personal history of nicotine dependence; Z79.4 Long term (current) use of insulin; Z79.84 Long term (current) use of oral hypoglycemic drugs
CPT/HCPCS: 74176; 81003; 82962; 96372; 99283; 99284; J1815